=== PATIENT | female | born 1985 | race Caucasian/White ===

== ENCOUNTER 2016-05-16 20:02 | Emergency (ER) | payer MEDICARE, MEDICAID ==
--- NOTE | 2016-05-16 21:25 | ER Document Report ---
ED Medical Screen (RME) - General Stated Complaint: DIARRHEA Mode of Arrival: Ambulatory Information source: Patient Notes: Patient complains of diarrhea for the past 5 days. Patient complains of headache and nausea. No fever. Patient does report multiple sick contacts in the household recently. hx: Hysterectomy, bipolar, PTSD, ADHD, panic and anxiety disorder, depression, paranoia I have greeted and performed a rapid initial assessment of this patient. A comprehensive ED assessment and evaluation of the patient, analysis of test results and completion of the medical decision making process will be conducted by additional ED providers. TRAVEL OUTSIDE OF THE [place] IN LAST 30 DAYS: No - Related Data Allergies/Adverse Reactions: aspirin [Aspirin] Allergy (Severe, Verified 05/16/16 21:23) THROAT SWELLS, HIVES iodine [Iodine] Allergy (Severe, Verified 05/16/16 21:23) Generalized Itching seafood Allergy (Severe, Uncoded 02/16/16 09:41) throat itches Past Medical History - Past Medical History Cardiac Medical History: Reports: Hx Hypercholesterolemia Denies: Hx Hypertension Pulmonary Medical History: Reports: Hx Asthma, Hx COPD Neurological Medical History: Reports: Hx Migraine Renal/ Medical History: Reports: Hx Kidney Stones GI Medical History: Reports: Hx Gastroesophageal Reflux Disease, Hx Irritable Bowel Musculoskeltal Medical History: Reports Hx Musculoskeletal Deformity, Reports Hx Musculoskeletal Trauma Psychiatric Medical History: Reports: Hx Anxiety, Hx Attention Deficit Hyperactivity Disorder, Hx Bipolar Disorder, Hx Depression Past Surgical History: Reports: Hx Abdominal Surgery - UMBILICAL HERNIA, Hx Section, Hx Cholecystectomy, Hx Herniorrhaphy - Umbilical hernia repair , Hx Hysterectomy, Hx Orthopedic Surgery - left shoulder(slap shoulder), Hx Tonsillectomy, Hx Umbilical Hernia. Denies: Hx Mastectomy, Hx Open Heart Surgery - Immunizations Immunizations up to date: Yes Hx Diphtheria, Pertussis, Tetanus Vaccination: Yes - 09/2010 Physical Exam - Vital signs Vitals: Temp Pulse BP Pulse Ox 97.7 F 82 123/75 99 05/16/16 20:55 05/16/16 20:55 05/16/16 20:55 05/16/16 20:55 - Abdominal Tenderness: Tender - Generalized tenderness Course - Vital Signs Vital signs: Temp Pulse Resp BP Pulse Ox 97.7 F 82 123/75 99 05/16/16 20:55 05/16/16 20:55 05/16/16 20:55 05/16/16 20:55
[2016-05-16 22:00] LABS: ABSOLUTE BASOPHILS # (AUTO) 0.1 10^3/uL (0.0-0.2); ABSOLUTE EOSINOPHILS # (AUTO) 0.4 10^3/uL (0.0-0.6); ABSOLUTE LYMPHOCYTES (AUTO) 4.7 10^3/uL (0.5-4.7); ABSOLUTE MONOCYTES (AUTO) 0.8 10^3/uL (0.1-1.4); ABSOLUTE NEUT (AUTO) 4.2 10^3/uL (1.7-8.2); BASOPHILS % (AUTO) 0.5 % (0-2); EOSINOPHILS % (AUTO) 3.8 % (0-6); HEMATOCRIT 39.3 % (36.0-47.0); HEMOGLOBIN 13.5 g/dL (12.0-15.5); HGB HCT DIFFERENCE 1.2; LYMPHOCYTES % (AUTO) 46.3 % (13-45); MEAN CORPUSCULAR HEMOGLOBIN 28.3 pg (27.0-33.4); MEAN CORPUSCULAR HGB CONC 34.2 g/dL (32.0-36.0); MEAN CORPUSCULAR VOLUME 83 fl (80-97); RED BLOOD COUNT 4.76 10^6/uL (3.72-5.28); RED CELL DISTRIBUTION WIDTH 13.8 % (11.5-14.0); SEGMENTED NEUTROPHILS % (AUTO) 41.4 % (42-78); WHITE BLOOD COUNT 10.3 10^3/uL (4.0-10.5)
[2016-05-16 22:13] LABS: ALANINE AMINOTRANSFERASE 20 U/L (9-52); ALBUMIN 4.6 g/dL (3.5-5.0); ALKALINE PHOSPHATASE 71 U/L (38-126); ANION GAP 12 (5-19); ASPARTATE AMINO TRANSFERASE 26 U/L (14-36); BILIRUBIN,TOTAL 0.3 mg/dL (0.2-1.3); BLOOD UREA NITROGEN 20 mg/dL (7-20); CARBON DIOXIDE 27 mmol/L (22-30); CHLORIDE 104 mmol/L (98-107); CREATININE RESULT 0.76 mg/dL (0.52-1.25); GLUCOSE 91 mg/dL (75-110); POTASSIUM 4.2 mmol/L (3.6-5.0); TOTAL PROTEIN 7.4 g/dL (6.3-8.2)
[2016-05-16 22:41] LABS: AMORPHOUS SEDIMENT,URINE TRACE /HPF; APPEARANCE,URINE CLOUDY; BILIRUBIN,URINE NEGATIVE (NEGATIVE); GLUCOSE, URINE NEGATIVE (NEGATIVE); KETONES,URINE NEGATIVE (NEGATIVE); LEUKOCYTE ESTERASE,URINE NEGATIVE (NEGATIVE); NITRITE,URINE NEGATIVE (NEGATIVE); PROTEIN,URINE NEGATIVE (NEGATIVE); URINE SPECIFIC GRAVITY 1.019; UROBILINOGEN,URINE NEGATIVE mg/dL (<2.0)
[2016-05-17] MEDS ORDERED: DICYCLOMINE HCL 20 MG TABLET PO ONE (00:52)
--- NOTE | 2016-05-17 00:53 | ER Document Report ---
ED General - General Chief Complaint: Diarrhea Stated Complaint: DIARRHEA Mode of Arrival: Ambulatory Notes: Patient is a 30-year-old female who presents with complaint of diarrhea. She has history of IBS. She says it feels somewhat try BS except for the diarrhea just has continued throughout the day and usually her diarrhea will decrease with Pepto-Bismol. She has taken Pepto-Bismol was not help. No blood or stool. No fevers. Some nausea but no vomiting. Some intermittent crampy abdominal pain. No other complaints at this time. TRAVEL OUTSIDE OF THE [place] IN LAST 30 DAYS: No - Related Data Allergies/Adverse Reactions: aspirin [Aspirin] Allergy (Severe, Verified 05/16/16 21:23) THROAT SWELLS, HIVES iodine [Iodine] Allergy (Severe, Verified 05/16/16 21:23) Generalized Itching seafood Allergy (Severe, Uncoded 02/16/16 09:41) throat itches Past Medical History - General Information source: Patient - Social History Smoking Status: Current Every Day Smoker Chew tobacco use (# tins/day): No Frequency of alcohol use: None Drug Abuse: None Family History: CAD, Other - Past Medical History Cardiac Medical History: Reports: Hx Hypercholesterolemia Denies: Hx Hypertension Pulmonary Medical History: Reports: Hx Asthma, Hx COPD Neurological Medical History: Reports: Hx Migraine Renal/ Medical History: Reports: Hx Kidney Stones. Denies: Hx Peritoneal Dialysis GI Medical History: Reports: Hx Gastroesophageal Reflux Disease, Hx Irritable Bowel Musculoskeltal Medical History: Reports Hx Musculoskeletal Deformity, Reports Hx Musculoskeletal Trauma Psychiatric Medical History: Reports: Hx Anxiety, Hx Attention Deficit Hyperactivity Disorder, Hx Bipolar Disorder, Hx Depression Past Surgical History: Reports: Hx Abdominal Surgery - UMBILICAL HERNIA, Hx Section, Hx Cholecystectomy, Hx Herniorrhaphy - Umbilical hernia repair , Hx Hysterectomy, Hx Orthopedic Surgery - left shoulder(slap shoulder), Hx Tonsillectomy, Hx Umbilical Hernia. Denies: Hx Mastectomy, Hx Open Heart Surgery - Immunizations Immunizations up to date: Yes Hx Diphtheria, Pertussis, Tetanus Vaccination: Yes - 09/2010 Review of Systems - Review of Systems Notes: My Normal Review Basic REVIEW OF SYSTEMS: CONSTITUTIONAL : Denies fever, chills, or sweats. Denies recent illness. EENT: Denies eye, ear, throat, or mouth pain or symptoms. Denies nasal or sinus congestion. RESPIRATORY: Denies cough, cold, or chest congestion. Denies shortness of breath, difficulty breathing, or wheezing. GASTROINTESTINAL: Intermittent crampy abdominal pain. Some diarrhea. No vomiting. GENITOURINARY: Denies difficulty urinating, painful urination, burning, frequency, or blood in urine. FEMALE GENITOURINARY: Denies vaginal bleeding, abnormal or irregular periods. LMP: MUSCULOSKELETAL: Denies neck or back pain or joint pain or swelling. SKIN: Denies rash or skin lesions. NEUROLOGICAL: Denies altered mental status or loss of consciousness. Denies headache. Denies weakness or paralysis or loss of use of either side. Denies problems with gait or speech. Denies sensory or motor loss. ALL OTHER SYSTEMS REVIEWED AND NEGATIVE. Physical Exam - Vital signs Vitals: Temp Pulse BP Pulse Ox 97.7 F 82 123/75 99 05/16/16 20:55 05/16/16 20:55 05/16/16 20:55 05/16/16 20:55 - Notes Notes: General Appearance: Well nourished, alert, cooperative, no acute distress, no obvious discomfort. Well-appearing. Vitals: reviewed, See vital signs table. Head: no swelling or tenderness to the head Eyes: PERRL, EOMI, Conjuctiva clear Mouth: No decreasd moisture Neck: Supple, no neck tenderness, No thyromegaly Lungs: No wheezing, No rales, No rhonci, No accessory muscle use, good air exchange bilaterally. Heart: Normal rate, Regular rythm, No murmur, no rub Abdomen: Normal BS, soft, No rigidity, mild diffuse abdominal tenderness to palpation, No guarding, no rebound, no abdominal masses, no organomegaly Extremities: strength 5/5 in all extremities, good pulses in all extremities, no swelling or tenderness in the extremities, no edema. Skin: warm, dry, appropriate color, no rash Neuro: speech clear, oriented x 3, normal affect, responds appropriately to questions. Course - Vital Signs Vital signs: Temp Pulse Resp BP Pulse Ox 97.7 F 82 16 123/75 99 05/16/16 20:55 05/16/16 20:55 05/16/16 21:30 05/16/16 20:55 05/16/16 20:55 - Laboratory Result Diagrams: 05/16/16 21:50 05/16/16 21:50 Laboratory results interpreted by me: 05/16/16 21:50 Seg Neutrophils % 41.4 L Lymphocytes % 46.3 H - Transfer of Care Notes: 05/17/16 01:02 Patient is very well-appearing. Stool culture shows no white blood cells in the stool. Suspect that her diarrhea is either related to a virus or related to her IBS. I will place her in mental. I encourage her to drink lots liquids. I encourage her to follow closely with primary care doctor. I encourage her to return to ER immediately shows blood or stool, fevers, worsening pain, or vomiting. Patient agrees with plan and will be discharged home. Dictation of this chart was performed using voice recognition software; therefore, there may be some unintended grammatical errors. Discharge - Discharge Clinical Impression: Diarrhea Qualifiers: Diarrhea type: unspecified type Qualified Code(s): R19.7 - Diarrhea, unspecified Condition: Good Disposition: HOME, SELF-CARE Additional Instructions: Pleae take the medication as prescribed. Please drink lots of liquids. Please follow up closely with her primary care doctor for reevaluation. Please return to the ER if have bloody stools, fevers, intractable vomiting, or feel that your symptoms are getting worse. Prescriptions: Dicyclomine HCl [Bentyl 20 mg Tablet] 20 mg PO QID #40 tablet Forms: Return to Work Referrals: TIMOTHY JOHN FNP-C [Primary Care Provider] - Follow up tomorrow
[2016-05-17 01:06] VITALS: BP 110/78
== END 2016-05-17 01:12 | disposition home or self-care (01) ==
LOC: ER 20:02
DX: K58.0 Irritable bowel syndrome with diarrhea (principal); F17.200 Nicotine dependence, unspecified, uncomplicated; J44.9 Chronic obstructive pulmonary disease, unspecified; J45.909 Unspecified asthma, uncomplicated
CPT/HCPCS: 99284; 36415; 87045; 89055; 87205; 83690; 85025; 80053; 81001; 87493 ×2; A9270; J3490

== ENCOUNTER 2016-05-21 17:40 | Emergency (ER) | payer MEDICARE, MEDICAID ==
[2016-05-21 17:53] VITALS: BP 117/75
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
== END 2016-05-21 20:40 | disposition home or self-care (01) ==
LOC: ER 17:40
DX: S29.012A Strain of muscle and tendon of back wall of thorax, initial encounter (principal); V49.40XA Driver injured in collision with unspecified motor vehicles in traffic accident, initial encounter; M54.89 Other dorsalgia; M54.2 Cervicalgia; M25.511 Pain in right shoulder; M25.512 Pain in left shoulder; J44.9 Chronic obstructive pulmonary disease, unspecified; J45.909 Unspecified asthma, uncomplicated; Z88.6 Allergy status to analgesic agent; Z91.013 Allergy to seafood
CPT/HCPCS: 72070; 72125; 99284

== ENCOUNTER 2016-08-03 23:21 | Emergency (ER) | payer MEDICARE, MEDICAID ==
--- NOTE | 2016-08-04 00:42 | ER Document Report ---
ED General - General Chief Complaint: Urinary Problem Stated Complaint: URINARY ISSUE Time Seen by Provider: 08/04/16 00:34 Notes: Patient is 31-year-old female presents for complaints of pain in the left flank and back and into her lower abdomen. She also has blood in her urine. Started today. She's never had this before. She did have a kidney stone she is several years ago. She's had a hysterectomy and therefore does not have menstrual periods. No fevers. No vomiting. No diarrhea. No other complaints at this time. TRAVEL OUTSIDE OF THE [place] IN LAST 30 DAYS: No - Related Data Allergies/Adverse Reactions: aspirin [Aspirin] Allergy (Severe, Verified 05/21/16 18:19) THROAT SWELLS, HIVES iodine [Iodine] Allergy (Severe, Verified 05/21/16 18:19) Generalized Itching seafood Allergy (Severe, Uncoded 05/21/16 18:19) throat itches Past Medical History - Social History Smoking Status: Unknown if Ever Smoked Frequency of alcohol use: None Drug Abuse: None Family History: CAD, Other - Past Medical History Cardiac Medical History: Reports: Hx Hypercholesterolemia Denies: Hx Hypertension Pulmonary Medical History: Reports: Hx Asthma, Hx COPD Neurological Medical History: Reports: Hx Migraine Renal/ Medical History: Reports: Hx Kidney Stones. Denies: Hx Peritoneal Dialysis GI Medical History: Reports: Hx Gastroesophageal Reflux Disease, Hx Irritable Bowel Musculoskeltal Medical History: Reports Hx Musculoskeletal Deformity, Reports Hx Musculoskeletal Trauma Psychiatric Medical History: Reports: Hx Anxiety, Hx Attention Deficit Hyperactivity Disorder, Hx Bipolar Disorder, Hx Depression Past Surgical History: Reports: Hx Abdominal Surgery - UMBILICAL HERNIA, Hx Section, Hx Cholecystectomy, Hx Herniorrhaphy - Umbilical hernia repair , Hx Hysterectomy, Hx Orthopedic Surgery - left shoulder(slap shoulder), Hx Tonsillectomy, Hx Umbilical Hernia. Denies: Hx Mastectomy, Hx Open Heart Surgery - Immunizations Immunizations up to date: Yes Hx Diphtheria, Pertussis, Tetanus Vaccination: Yes - 09/2010 Review of Systems - Review of Systems Notes: My Normal Review Basic REVIEW OF SYSTEMS: CONSTITUTIONAL : Denies fever, chills, or sweats. Denies recent illness. GASTROINTESTINAL: No abdominal pain and left flank pain. GENITOURINARY: Hematuria FEMALE GENITOURINARY: Previous hysterectomy MUSCULOSKELETAL: Left low back pain SKIN: Denies rash or skin lesions. HEMATOLOGIC : Denies easy bruising or bleeding. NEUROLOGICAL: Denies altered mental status or loss of consciousness. Denies headache. Denies weakness or paralysis or loss of use of either side. Denies problems with gait or speech. Denies sensory or motor loss. ALL OTHER SYSTEMS REVIEWED AND NEGATIVE. Physical Exam - Vital signs Vitals: Temp Pulse BP Pulse Ox 97.5 F 84 107/62 99 08/03/16 23:36 08/03/16 23:36 08/03/16 23:36 08/03/16 23:36 - Notes Notes: General Appearance: Well nourished, alert, cooperative, no acute distress, no obvious discomfort. Well-appearing. Vitals: reviewed, See vital signs table. Eyes: PERRL, EOMI, Conjuctiva clear Lungs: No wheezing, No rales, No rhonci, No accessory muscle use, good air exchange bilaterally. Heart: Normal rate, Regular rythm, No murmur, no rub Abdomen: Normal BS, soft, No rigidity, mild suprapubic abdominal tenderness to palpation., Mild left flank pain to palpation. No guarding, no rebound, no abdominal masses, no organomegaly Extremities: strength 5/5 in all extremities, good pulses in all extremities, no swelling or tenderness in the extremities, no edema. Skin: warm, dry, appropriate color, no rash Neuro: speech clear, oriented x 3, normal affect, responds appropriately to questions. Course - Vital Signs Vital signs: Temp Pulse Resp BP Pulse Ox 97.5 F 84 107/62 99 08/03/16 23:36 08/03/16 23:36 08/03/16 23:36 08/03/16 23:36 - Laboratory Laboratory results interpreted by me: 08/04/16 00:35 Urine Protein >=500 H Urine Glucose (UA) 50 H Urine Blood LARGE H Discharge - Discharge Clinical Impression: Hematuria, Flank pain Condition: Good Disposition: HOME, SELF-CARE Instructions: Oral Narcotic Medication ([facility]) Additional Instructions: Please take the antibiotics as prescribed. Do not drive when taking pain medication. Please follow-up with your doctor or the ER in 2-3 days so that urine to be rechecked to make sure that is clearing and that the blood is no longer present. If you continue to have blood in your urine you may eventually need to be referred to a urologist for further workup. Return to the ER immeidately if you have fevers, worsening pain, or feel unwell. Please be aware that antibiotics sometimes can cause weakening of your tendons while you' re on them. Therefore should avoid exertional activities or heavy weightlifting when taking the antibiotics. Prescriptions: Tramadol HCl [Ultram 50 mg Tablet] 50 mg PO Q6HP PRN #10 tablet PRN Reason: Ciprofloxacin HCl [Cipro 500 mg Tablet] 500 mg PO BID #20 tablet
[2016-08-04 01:07] LABS: APPEARANCE,URINE TURBID; BILIRUBIN,URINE NEGATIVE (NEGATIVE); GLUCOSE, URINE 50 mg/dL (NEGATIVE); KETONES,URINE NEGATIVE (NEGATIVE); LEUKOCYTE ESTERASE,URINE NEGATIVE (NEGATIVE); NITRITE,URINE NEGATIVE (NEGATIVE); PROTEIN,URINE >=500 mg/dL (NEGATIVE); URINE SPECIFIC GRAVITY 1.031; UROBILINOGEN,URINE NEGATIVE mg/dL (<2.0)
[2016-08-04] MEDS ORDERED: TRAMADOL HCL 50 MG TABLET PO ONE (01:52)
[2016-08-04] MEDS ORDERED: CIPROFLOXACIN HCL 500 MG TABLET PO ONE (01:52)
[2016-08-04 02:01] VITALS: BP 117/77
== END 2016-08-04 01:59 | disposition home or self-care (01) ==
LOC: ER 23:21
DX: R31.9 Hematuria, unspecified (principal); R10.9 Unspecified abdominal pain; M54.9 Dorsalgia, unspecified; Z88.6 Allergy status to analgesic agent; E78.00 Pure hypercholesterolemia, unspecified; Z90.710 Acquired absence of both cervix and uterus; Z87.442 Personal history of urinary calculi; Z90.49 Acquired absence of other specified parts of digestive tract
CPT/HCPCS: 99284; 81001; 76380; A9270 ×2

== ENCOUNTER → 2016-08-03 | Outpatient (CLI) | payer MEDICARE, MEDICAID ==
[2016-08-03 09:22] LABS: ABSOLUTE EOSINOPHILS # (AUTO) 0.2 10^3/uL (0.0-0.6); ABSOLUTE LYMPHOCYTES (AUTO) 3.3 10^3/uL (0.5-4.7); ABSOLUTE MONOCYTES (AUTO) 0.6 10^3/uL (0.1-1.4); ABSOLUTE NEUT (AUTO) 3.7 10^3/uL (1.7-8.2); BASOPHILS % (AUTO) 0.3 % (0-2); EOSINOPHILS % (AUTO) 2.1 % (0-6); HEMATOCRIT 39.6 % (36.0-47.0); HEMOGLOBIN 13.2 g/dL (12.0-15.5); LYMPHOCYTES % (AUTO) 42.8 % (13-45); MEAN CORPUSCULAR HEMOGLOBIN 26.9 pg (27.0-33.4); MEAN CORPUSCULAR HGB CONC 33.4 g/dL (32.0-36.0); MEAN CORPUSCULAR VOLUME 81 fl (80-97); RED BLOOD COUNT 4.91 10^6/uL (3.72-5.28); RED CELL DISTRIBUTION WIDTH 13.8 % (11.5-14.0); SEGMENTED NEUTROPHILS % (AUTO) 46.8 % (42-78); WHITE BLOOD COUNT 7.8 10^3/uL (4.0-10.5)
[2016-08-03 09:43] LABS: ALANINE AMINOTRANSFERASE 33 U/L (9-52); ALBUMIN 4.1 g/dL (3.5-5.0); ALKALINE PHOSPHATASE 65 U/L (38-126); ANION GAP 11 (5-19); ASPARTATE AMINO TRANSFERASE 20 U/L (14-36); BILIRUBIN,DIRECT 0.4 mg/dL (0.0-0.4); BILIRUBIN,TOTAL 0.6 mg/dL (0.2-1.3); BLOOD UREA NITROGEN 13 mg/dL (7-20); CALCIUM 9.6 mg/dL (8.4-10.2); CARBON DIOXIDE 26 mmol/L (22-30); CHLORIDE 104 mmol/L (98-107); CHOLESTEROL 171.03 mg/dL (0-200); CREATININE RESULT 0.74 mg/dL (0.52-1.25); Direct HDL 36 mg/dL (>40); GLUCOSE 97 mg/dL (75-110); POTASSIUM 4.2 mmol/L (3.6-5.0); SODIUM 141.3 mmol/L (137-145); TOTAL PROTEIN 6.6 g/dL (6.3-8.2); TRIGLYCERIDES 185 mg/dL (<150)
[2016-08-03 09:53] LABS: DIRECT LDL 94 mg/dL (<100); VALPROIC ACID 15.7 ug/mL (50.0-120.0)
== END ==
LOC: OD 08:32
PROVIDERS: ATTEND Physician Assistant
DX: F43.12 Post-traumatic stress disorder, chronic (principal); Z79.899 Other long term (current) drug therapy
CPT/HCPCS: 36415; 80053; 80061; 80164; 85025

== ENCOUNTER → 2016-08-24 | Outpatient (CLI) | payer MEDICARE, MEDICAID ==
--- NOTE | 2016-08-24 17:04 | RADIOLOGY REPORT (SQ) ---
EXAM DESCRIPTION: KUB COMPLETED DATE/TIME: 08/24/2016 4:13 pm REASON FOR STUDY: CALCULUS OF KIDNEY N20.0 CALCULUS OF KIDNEY COMPARISON: None. NUMBER OF VIEWS: One view. TECHNIQUE: Supine radiographic image of the abdomen acquired. LIMITATIONS: None. FINDINGS: BOWEL GAS PATTERN: Normal bowel gas pattern. No dilated loops. CALCIFICATIONS: A large, irregular elongated calcification lies just below the right transverse proce ss of L2. This measures 12 mm in largest diameter. SOFT TISSUES: No gross mass or suggestion of organomegaly. HARDWARE: None in the abdomen. BONES: No acute fracture. No worrisome bone lesions. OTHER: No other significant finding. IMPRESSION: There is a large calcification on the right. This is likely to be in the renal pelvis o r proximal ureter. TECHNICAL DOCUMENTATION: JOB ID: [id number]- All Rights Reserved
== END ==
LOC: OD 15:49
PROVIDERS: ATTEND Urology
DX: N20.0 Calculus of kidney (principal)
CPT/HCPCS: 74000

== ENCOUNTER 2016-08-30 04:35 | Emergency (ER) | payer MEDICARE, MEDICAID ==
[2016-08-30 05:28] LABS: ABSOLUTE MONOCYTES (AUTO) 0.6 10^3/uL (0.1-1.4); ABSOLUTE NEUT (AUTO) 8.3 10^3/uL (1.7-8.2); BASOPHILS % (AUTO) 0.4 % (0-2); HEMOGLOBIN 13.3 g/dL (12.0-15.5); HGB HCT DIFFERENCE -1.1; LYMPHOCYTES % (AUTO) 18.7 % (13-45); MEAN CORPUSCULAR HGB CONC 32.5 g/dL (32.0-36.0); MEAN CORPUSCULAR VOLUME 80 fl (80-97); MONOCYTES % (AUTO) 5.2 % (3-13); RED BLOOD COUNT 5.12 10^6/uL (3.72-5.28); RED CELL DISTRIBUTION WIDTH 13.8 % (11.5-14.0); SEGMENTED NEUTROPHILS % (AUTO) 75.7 % (42-78); WHITE BLOOD COUNT 10.9 10^3/uL (4.0-10.5)
[2016-08-30 05:43] LABS: ALANINE AMINOTRANSFERASE 23 U/L (9-52); ALBUMIN 4.8 g/dL (3.5-5.0); ALKALINE PHOSPHATASE 66 U/L (38-126); ANION GAP 16 (5-19); ASPARTATE AMINO TRANSFERASE 14 U/L (14-36); BILIRUBIN,DIRECT 0.4 mg/dL (0.0-0.4); BILIRUBIN,TOTAL 0.5 mg/dL (0.2-1.3); BLOOD UREA NITROGEN 13 mg/dL (7-20); CALCIUM 10.1 mg/dL (8.4-10.2); CARBON DIOXIDE 23 mmol/L (22-30); CHLORIDE 100 mmol/L (98-107); CREATININE RESULT 0.76 mg/dL (0.52-1.25); GLUCOSE 114 mg/dL (75-110); POTASSIUM 4.5 mmol/L (3.6-5.0); SODIUM 138.9 mmol/L (137-145); TOTAL PROTEIN 7.8 g/dL (6.3-8.2)
[2016-08-30] MEDS ORDERED: NORMAL SALINE 1000 ML 1,000 ML IV ONE ×2 (06:05→07:33)
[2016-08-30] MEDS ORDERED: ONDANSETRON HCL INJ/PF 4 MG/2 ML SDV IV ONE (06:05)
--- NOTE | 2016-08-30 06:11 | ER Document Report ---
ED Medical Screen (RME) - General Chief Complaint: Possible Kidney Stone Stated Complaint: FLANK PAIN Time Seen by Provider: 08/30/16 06:03 Mode of Arrival: Medic Information source: Patient Notes: 31 yo female with hx kidney stones dx by [facility] is c/o left lower back pain (not over kidney) , vomiting since 5 pm with diarrhea, generalized abd. pain. NO blood in stool. Has been taking Percocet 10mg every 4 hours for 10 days to help pass the stones. HX. eyal and hysterectomy. No fever or chills. Looks dry. TRAVEL OUTSIDE OF THE [place] IN LAST 30 DAYS: No - Related Data Allergies/Adverse Reactions: aspirin [Aspirin] Allergy (Severe, Verified 08/30/16 04:45) THROAT SWELLS, HIVES iodine [Iodine] Allergy (Severe, Verified 08/30/16 04:45) Generalized Itching seafood Allergy (Severe, Uncoded 08/30/16 04:45) throat itches Past Medical History - Past Medical History Cardiac Medical History: Reports: Hx Hypercholesterolemia Denies: Hx Hypertension Pulmonary Medical History: Reports: Hx Asthma, Hx COPD Neurological Medical History: Reports: Hx Migraine Renal/ Medical History: Reports: Hx Kidney Stones. Denies: Hx Peritoneal Dialysis GI Medical History: Reports: Hx Gastroesophageal Reflux Disease, Hx Irritable Bowel Musculoskeltal Medical History: Reports Hx Musculoskeletal Deformity, Reports Hx Musculoskeletal Trauma Psychiatric Medical History: Reports: Hx Anxiety, Hx Attention Deficit Hyperactivity Disorder, Hx Bipolar Disorder, Hx Depression Past Surgical History: Reports: Hx Abdominal Surgery - UMBILICAL HERNIA, Hx Section, Hx Cholecystectomy, Hx Herniorrhaphy - Umbilical hernia repair , Hx Hysterectomy, Hx Orthopedic Surgery - left shoulder(slap shoulder), Hx Tonsillectomy, Hx Umbilical Hernia. Denies: Hx Mastectomy, Hx Open Heart Surgery - Immunizations Immunizations up to date: Yes Hx Diphtheria, Pertussis, Tetanus Vaccination: Yes - 09/2010 Physical Exam - Vital signs Vitals: Temp Pulse Resp BP Pulse Ox 98.2 F 63 18 105/72 98 08/30/16 04:42 08/30/16 04:42 08/30/16 04:42 08/30/16 04:42 08/30/16 04:42 Course - Vital Signs Vital signs: Temp Pulse Resp BP Pulse Ox 98.2 F 63 18 105/72 98 08/30/16 04:42 08/30/16 04:42 08/30/16 04:42 08/30/16 04:42 08/30/16 04:42 - Laboratory Result Diagrams: 08/30/16 04:55 08/30/16 04:55 Laboratory results interpreted by me: 08/30/16 08/30/16 04:55 04:55 WBC 10.9 H MCH 26.0 L Absolute Neutrophils 8.3 H Glucose 114 H
[2016-08-30] MEDS ORDERED: DIPHENHYDRAMINE HCL 50 MG/ML VIAL IV ONE (06:12)
[2016-08-30] MEDS ORDERED: METOCLOPRAMIDE HCL INJ/PF 10 MG/2 ML SDV IV ONE (06:12)
[2016-08-30 06:17] LABS: ADD ON TESTING BLD IN LAB ACKNOWLEDGE
[2016-08-30 06:27] LABS: ALCOHOL < 10 mg/dL (NONE DETECTED)
[2016-08-30 06:29] LABS: APPEARANCE,URINE TURBID; BILIRUBIN,URINE NEGATIVE (NEGATIVE); GLUCOSE, URINE NEGATIVE (NEGATIVE); KETONES,URINE 20 mg/dL (NEGATIVE); LEUKOCYTE ESTERASE,URINE NEGATIVE (NEGATIVE); NITRITE,URINE NEGATIVE (NEGATIVE); PROTEIN,URINE 30 mg/dL (NEGATIVE); URINE SPECIFIC GRAVITY 1.025; UROBILINOGEN,URINE NEGATIVE mg/dL (<2.0)
[2016-08-30 07:01] LABS: URINE BARBITURATES SCREEN NEGATIVE; URINE METHADONE SCREEN NEGATIVE; URINE OPIATES LOW NEGATIVE; URINE PHENCYCLIDINE SCREEN NEGATIVE
[2016-08-30] MEDS ORDERED: KETOROLAC TROMETHAMINE INJ/PF 30 MG/1 ML SDV IV ONE (07:12)
[2016-08-30] MEDS ORDERED: PROMETHAZINE HCL 25 MG TABLET PO ONE (07:12)
--- NOTE | 2016-08-30 08:08 | ER Document Report ---
ED General - General Chief Complaint: Possible Kidney Stone Stated Complaint: FLANK PAIN Time Seen by Provider: 08/30/16 06:03 Mode of Arrival: Medic TRAVEL OUTSIDE OF THE [place] IN LAST 30 DAYS: No - HPI Patient complains to provider of: Nausea vomiting lower back pain diarrhea Notes: Patient is coming in today for nausea vomiting low back pain ongoing for the last 24 hours. Patient states history of kidney stones currently on Percocet for pain control. Patient states she is running out of Percocet. Patient states she has not tried any medication for her nausea vomiting. Patient does have significant psych history is on multiple psychiatric medications. Otherwise patient denies any other problems or complaints denies any recent antibiotics or travel. Patient is resting comfortably upon my evaluation after receiving Benadryl and Reglan. - Related Data Allergies/Adverse Reactions: aspirin [Aspirin] Allergy (Severe, Verified 08/30/16 04:45) THROAT SWELLS, HIVES iodine [Iodine] Allergy (Severe, Verified 08/30/16 04:45) Generalized Itching seafood Allergy (Severe, Uncoded 08/30/16 04:45) throat itches Past Medical History - General Information source: Patient - Social History Smoking Status: Unknown if Ever Smoked Family History: Reviewed & Not Pertinent, CAD, Other - Past Medical History Cardiac Medical History: Reports: Hx Hypercholesterolemia Denies: Hx Hypertension Pulmonary Medical History: Reports: Hx Asthma, Hx COPD Neurological Medical History: Reports: Hx Migraine Renal/ Medical History: Reports: Hx Kidney Stones. Denies: Hx Peritoneal Dialysis GI Medical History: Reports: Hx Gastroesophageal Reflux Disease, Hx Irritable Bowel Musculoskeltal Medical History: Reports Hx Musculoskeletal Deformity, Reports Hx Musculoskeletal Trauma Psychiatric Medical History: Reports: Hx Anxiety, Hx Attention Deficit Hyperactivity Disorder, Hx Bipolar Disorder, Hx Depression Past Surgical History: Reports: Hx Abdominal Surgery - UMBILICAL HERNIA, Hx Section, Hx Cholecystectomy, Hx Herniorrhaphy - Umbilical hernia repair , Hx Hysterectomy, Hx Orthopedic Surgery - left shoulder(slap shoulder), Hx Tonsillectomy, Hx Umbilical Hernia. Denies: Hx Mastectomy, Hx Open Heart Surgery - Immunizations Immunizations up to date: Yes Hx Diphtheria, Pertussis, Tetanus Vaccination: Yes - 09/2010 Review of Systems - Review of Systems Constitutional: No symptoms reported EENT: No symptoms reported Cardiovascular: No symptoms reported Respiratory: No symptoms reported Gastrointestinal: Diarrhea, Nausea, Vomiting Genitourinary: No symptoms reported Female Genitourinary: No symptoms reported Musculoskeletal: No symptoms reported Skin: No symptoms reported Hematologic/Lymphatic: No symptoms reported Neurological/Psychological: No symptoms reported -: Yes All other systems reviewed and negative Physical Exam - Vital signs Vitals: Temp Pulse Resp BP Pulse Ox 98.2 F 63 18 105/72 98 08/30/16 04:42 08/30/16 04:42 08/30/16 04:42 08/30/16 04:42 08/30/16 04:42 Interpretation: Normal - General General appearance: Appears well, Alert - HEENT Head: Normocephalic, Atraumatic Eyes: Normal Pupils: PERRL - Respiratory Respiratory status: No respiratory distress Chest status: Nontender Breath sounds: Normal Chest palpation: Normal - Cardiovascular Rhythm: Regular Heart sounds: Normal auscultation Murmur: No - Abdominal Inspection: Normal Distension: No distension Bowel sounds: Normal Tenderness: Nontender Organomegaly: No organomegaly - Back Back: Normal, Nontender - Extremities General upper extremity: Normal inspection, Nontender, Normal color, Normal ROM , Normal temperature General lower extremity: Normal inspection, Nontender, Normal color, Normal ROM , Normal temperature, Normal weight bearing. No: Vanda's sign - Neurological Neuro grossly intact: Yes Cognition: Normal Orientation: AAOx4 [place] Coma Scale Eye Opening: Spontaneous [place] Coma Scale Verbal: Oriented [place] Coma Scale Motor: Obeys Commands [place] Coma Scale Total: 15 Speech: Normal Motor strength normal: LUE, RUE, LLE, RLE Sensory: Normal - Psychological Associated symptoms: Normal affect, Normal mood - Skin Skin Temperature: Warm Skin Moisture: Dry Skin Color: Normal Course - Re-evaluation Re-evalutation: 08/30/16 07:48 The patient presents with abdominal pain without signs of peritonitis or other life-threatening or serious etiology. The patient appears stable for discharge and has been instructed to return immediately if the symptoms worsen in any way , or in 8-12hr if not improved for re-evaluation. The patient has been instructed to return if the symptoms worsen or change in any way.. Patient states he has taken Toradol before. Patient was given a dose of Toradol and a dose of Phenergan and she states still mildly nauseous. There is no current vomitus. Patient was given another bag of IV fluids. Patient will be discharged home to follow-up with primary care physician - Vital Signs Vital signs: Temp Pulse Resp BP Pulse Ox 98.7 F 53 L 16 121/74 98 08/30/16 09:41 08/30/16 09:41 08/30/16 09:41 08/30/16 09:41 08/30/16 09:41 - Laboratory Result Diagrams: 08/30/16 04:55 08/30/16 04:55 Laboratory results interpreted by me: 08/30/16 08/30/16 08/30/16 04:55 04:55 05:05 WBC 10.9 H MCH 26.0 L Absolute Neutrophils 8.3 H Glucose 114 H Urine Protein 30 H Urine Ketones 20 H Urine Blood MODERATE H Discharge - Discharge Clinical Impression: Nausea vomiting and diarrhea Condition: Good Disposition: HOME, SELF-CARE Instructions: Gastroenteritis (adult) ([facility]) Additional Instructions: Your laboratory studies show no critical pathology today. Take medications as prescribed. Follow-up with your primary care physician for further evaluation of your pain medication regimen. Prescriptions: Ondansetron [Zofran Odt 4 mg Tablet] 1 - 2 tab PO Q4H PRN #15 tab.rapdis PRN Reason: For Nausea/Vomiting Promethazine HCl [Phenergan 25 mg Tablet] 1 - 2 tab PO Q6H PRN #15 tablet PRN Reason: Forms: Return to Work
[2016-08-30] MEDS ORDERED: PROMETHAZINE HCL INJ 25 MG/1 ML VIAL IM ONE (08:49)
[2016-08-30] MEDS ORDERED: PROMETHAZINE HCL INJ 50 MG/1 ML VIAL IM ONE (09:15)
[2016-08-30 09:43] VITALS: BP 121/74
== END 2016-08-30 09:43 | disposition home or self-care (01) ==
LOC: ER 04:35
DX: R11.2 Nausea with vomiting, unspecified (principal); R19.7 Diarrhea, unspecified; M54.5 Low back pain; R10.9 Unspecified abdominal pain; Z79.899 Other long term (current) drug therapy; Z88.6 Allergy status to analgesic agent; Z91.013 Allergy to seafood; Z87.442 Personal history of urinary calculi; J44.9 Chronic obstructive pulmonary disease, unspecified; Z87.19 Personal history of other diseases of the digestive system; Z90.49 Acquired absence of other specified parts of digestive tract; Z90.710 Acquired absence of both cervix and uterus
CPT/HCPCS: 99284; 96372; 96374; 96375; 36415; 87086; 80307 ×2; 83690; 85025; 81025; 80053; 81001; J1200; J1885; J2765; J2550; A9270; J7030

== ENCOUNTER 2016-09-08 22:57 | Emergency (ER) | payer MEDICARE, MEDICAID ==
[2016-09-09 00:20] LABS: HEMATOCRIT 42.1 % (36.0-47.0); HGB HCT DIFFERENCE -0.1; MEAN CORPUSCULAR HEMOGLOBIN 25.6 pg (27.0-33.4); MEAN CORPUSCULAR HGB CONC 33.2 g/dL (32.0-36.0); MEAN CORPUSCULAR VOLUME 77 fl (80-97); RED BLOOD COUNT 5.46 10^6/uL (3.72-5.28); RED CELL DISTRIBUTION WIDTH 14.2 % (11.5-14.0); WHITE BLOOD COUNT 25.9 10^3/uL (4.0-10.5)
[2016-09-09 00:27] LABS: APPEARANCE,URINE CLOUDY; BILIRUBIN,URINE NEGATIVE (NEGATIVE); GLUCOSE, URINE NEGATIVE (NEGATIVE); KETONES,URINE TRACE mg/dL (NEGATIVE); LEUKOCYTE ESTERASE,URINE SMALL (NEGATIVE); NITRITE,URINE NEGATIVE (NEGATIVE); PROTEIN,URINE >=500 mg/dL (NEGATIVE); URINE SPECIFIC GRAVITY 1.028; UROBILINOGEN,URINE NEGATIVE mg/dL (<2.0)
[2016-09-09 00:31] LABS: ALANINE AMINOTRANSFERASE 26 U/L (9-52); ALBUMIN 3.9 g/dL (3.5-5.0); ALKALINE PHOSPHATASE 60 U/L (38-126); ANION GAP 16 (5-19); ASPARTATE AMINO TRANSFERASE 14 U/L (14-36); BILIRUBIN,DIRECT 0.4 mg/dL (0.0-0.4); BILIRUBIN,TOTAL 0.5 mg/dL (0.2-1.3); BLOOD UREA NITROGEN 15 mg/dL (7-20); CALCIUM 9.1 mg/dL (8.4-10.2); CARBON DIOXIDE 25 mmol/L (22-30); CHLORIDE 92 mmol/L (98-107); CREATININE RESULT 1.02 mg/dL (0.52-1.25); GLUCOSE 120 mg/dL (75-110); LIPASE 22.8 U/L (23-300); SODIUM 132.8 mmol/L (137-145); TOTAL PROTEIN 6.5 g/dL (6.3-8.2)
[2016-09-09 00:34] LABS: POTASSIUM 2.9 mmol/L (3.6-5.0)
[2016-09-09 00:39] LABS: BAND NEUTROPHILS % (MANUAL) 4 % (3-5); BASOPHILS % (MANUAL) 0 % (0-2); EOSINOPHILS % (MANUAL) 0 % (0-6); LYMPHOCYTES % (MANUAL) 4 % (13-45); TOTAL CELLS COUNTED 100
[2016-09-09 00:41] LABS: MICROCYTOSIS SLIGHT; TOXIC GRANULATION 1+; TOXIC VACUOLATION PRESENT
[2016-09-09] MEDS ORDERED: ONDANSETRON HCL INJ/PF 4 MG/2 ML SDV IV ONE (01:09)
[2016-09-09] MEDS ORDERED: MORPHINE SULFATE 10 MG/ML INJ IV ONE (01:09)
[2016-09-09] MEDS ORDERED: NORMAL SALINE 1000 ML 1,000 ML IV ONE ×4 (01:09→08:47)
--- NOTE | 2016-09-09 01:14 | ER Document Report ---
ED GI/ - General TRAVEL OUTSIDE OF THE [place] IN LAST 30 DAYS: No <MALU BLACK - Last Filed: 09/09/16 06:41> <DIONY ROOT - Last Filed: 09/09/16 12:58> - General Chief Complaint: Back Pain Stated Complaint: LOWER BACK/FLANK PAIN Time Seen by Provider: 09/09/16 01:03 Notes: Patient is a 31-year-old female that comes emergency department for chief complaint of right flank pain, vomiting, and fever. Patient states her temperature was 102.5 this evening. She states she has not eaten today. Patient states that she was diagnosed almost a month ago with a 12 mm right- sided kidney stone, she had lithotripsy 1 week ago in [place] by Dr. bradford, urology, patient states that she has not been seen yet on follow-up. Patient's past medical history includes hysterectomy, cystectomy, PTSD, bipolar, hyperlipidemia. (MALU BLACK) - Related Data Allergies/Adverse Reactions: aspirin [Aspirin] Allergy (Severe, Verified 09/09/16 04:14) THROAT SWELLS, HIVES iodine [Iodine] Allergy (Severe, Verified 09/09/16 04:14) Generalized Itching seafood Allergy (Severe, Uncoded 09/09/16 04:14) throat itches Home Medications: Current Home Medications Clonazepam [Klonopin] 1 mg PO TID 09/09/16 [History] Dexlansoprazole [Dexilant 60 mg Capsule] 60 mg PO DAILY 09/09/16 [History] Divalproex Sodium [Divalproex Sodium ER] 250 mg PO TID 09/09/16 [History] Estrogens,Conjugated [Premarin 1.25 mg Tablet] 1.25 mg PO QHS 09/09/16 [History] Gemfibrozil [Lopid] 600 mg PO BID 09/09/16 [History] Hydroxyzine Pamoate 50 mg PO TID PRN 09/09/16 [History] Metformin HCl 500 mg PO BID 09/09/16 [History] Montelukast Sodium 10 mg PO QHS 09/09/16 [History] Oxycodone HCl/Acetaminophen [Oxycodone-Acetaminophen 5-325] 1 each PO Q4 PRN [History] Prazosin HCl 2 mg PO QHS 09/09/16 [History] Promethazine HCl 25 mg PO Q6 PRN 09/09/16 [History] Sulfamethoxazole/Trimethoprim [Sulfamethoxazole-Tmp Ss Tablet] 1 each PO BID [History] Tamsulosin HCl [Flomax] 0.4 mg PO QHS 09/09/16 [History] Trazodone HCl [Desyrel] 200 mg PO QHS 09/09/16 [History] Ziprasidone HCl 40 mg PO BID 09/09/16 [History] Ziprasidone HCl 80 mg PO DAILY 09/09/16 [History] Past Medical History - General Information source: Patient - Social History Smoking Status: Never Smoker Drug Abuse: None Lives with: Family Family History: Reviewed & Not Pertinent, CAD, Other Patient has suicidal ideation: No Patient has homicidal ideation: No - Past Medical History Cardiac Medical History: Reports: Hx Hypercholesterolemia Denies: Hx Hypertension Pulmonary Medical History: Reports: Hx Asthma, Hx COPD Neurological Medical History: Reports: Hx Migraine Renal/ Medical History: Reports: Hx Kidney Stones. Denies: Hx Peritoneal Dialysis GI Medical History: Reports: Hx Gastroesophageal Reflux Disease, Hx Irritable Bowel Musculoskeltal Medical History: Reports Hx Musculoskeletal Deformity, Reports Hx Musculoskeletal Trauma Psychiatric Medical History: Reports: Hx Anxiety, Hx Attention Deficit Hyperactivity Disorder, Hx Bipolar Disorder, Hx Depression Past Surgical History: Reports: Hx Abdominal Surgery - UMBILICAL HERNIA, Hx Section, Hx Cholecystectomy, Hx Herniorrhaphy - Umbilical hernia repair , Hx Hysterectomy, Hx Orthopedic Surgery - left shoulder(slap shoulder), Hx Tonsillectomy, Hx Umbilical Hernia. Denies: Hx Mastectomy, Hx Open Heart Surgery - Immunizations Immunizations up to date: Yes Hx Diphtheria, Pertussis, Tetanus Vaccination: Yes - 09/2010 <MALU BLACK - Last Filed: 09/09/16 06:41> Review of Systems - Review of Systems Constitutional: No symptoms reported EENT: No symptoms reported Cardiovascular: No symptoms reported Respiratory: No symptoms reported Gastrointestinal: See HPI Genitourinary: See HPI Female Genitourinary: No symptoms reported Musculoskeletal: No symptoms reported Skin: No symptoms reported Hematologic/Lymphatic: No symptoms reported Neurological/Psychological: No symptoms reported <MALU BLACK - Last Filed: 09/09/16 06:41> Physical Exam - Vital signs Interpretation: Normal - General General appearance: Anxious In distress: Moderate - Patient appears to be in pain, she is pale, she is generally unwell appearing - HEENT Head: Normocephalic, Atraumatic Eyes: Normal Pupils: PERRL - Respiratory Respiratory status: No respiratory distress Chest status: Nontender Breath sounds: Normal Chest palpation: Normal - Cardiovascular Rhythm: Regular, Tachycardia Heart sounds: Normal auscultation, S1 appreciated, S2 appreciated Murmur: No - Abdominal Inspection: Normal Distension: No distension Bowel sounds: Normal Tenderness: Tender - Generalized abdominal tenderness Organomegaly: No organomegaly - Back Back: CVA tenderness - Right-sided CVA tenderness - Extremities General upper extremity: Normal inspection, Nontender, Normal color, Normal ROM , Normal temperature General lower extremity: Normal inspection, Nontender, Normal color, Normal ROM , Normal temperature, Normal weight bearing. No: Vanda's sign - Neurological Neuro grossly intact: Yes Cognition: Normal Orientation: AAOx4 [place] Coma Scale Eye Opening: Spontaneous [place] Coma Scale Verbal: Oriented [place] Coma Scale Motor: Obeys Commands [place] Coma Scale Total: 15 Speech: Normal Motor strength normal: LUE, RUE, LLE, RLE Sensory: Normal - Skin Skin Temperature: Warm Skin Moisture: Dry Skin Color: Pale <MALU BLACK - Last Filed: 09/09/16 06:41> Course - Laboratory Result Diagrams: 09/08/16 23:55 09/08/16 23:55 <MALU BLACK - Last Filed: 09/09/16 06:41> - Laboratory Result Diagrams: 09/08/16 23:55 09/09/16 09:29 <DIONY ROOT - Last Filed: 09/09/16 12:58> - Re-evaluation Re-evalutation: Initial urine sample obtained, because of patient's illness and HPI requested catheterized urine to be obtained, patient agreeable to this, will place culture. Catheterized urine also shows urinary tract infection. Laboratory results shows leukocytosis at 25.6, elevated neutrophils, no bandemia. Patient is tachycardic but not hypotensive, does not have a fever at this time. Chemistry generally unremarkable except for hypokalemia at 2.9, will replace, will check magnesium, giving fluids. Giving patient Rocephin. Will keep N.p.o. KUB was performed, shows possible new small ureterolithiasis, this is difficult to tell. Because of patient's workup CAT scan will be performed to evaluate for hydronephrosis. Patient was discussed with Dr. Wells. Magnesium is low, will replace this as well. CAT scan showing that the 1.2 cm stone actually did not pass and it descended and appears to have obstructed with hydroureter, hydronephrosis. We do not have any Urology coverage. Patient is starting to develop a fever and increased tachycardia again, will give Toradol. 09/09/16 04:55 Called and spoke with Dr. Fraser, urology business information consultant at [facility] business information consultant for patient's urologist, patient will be accepted in transfer. Patient states understanding and agreement. 09/09/16 Initially father frustrated with transfer (wants her to stay her), but there is no urology business information consultant, he personally called Dr. Fraser and afterwards to me he was in agreement with transfer. Fever reduced, tachycardia improved back down to 105. (MALU BLACK) 09/09/16 11:46 few ice chips given, temp to 101, tylenol ordered. Have called [facility] 3 times since 10:30 tying to find out bed status nad to talk with dr. Fraser again. He has not returned call to their transfer center. The pt father in law has been commupicating with dr. bowser at [phone]. dr. fraser accepted the pt for [facility]. 09/09/16 12:[address] bradford who will take her to OR for the stent with the transfer center on the phone call also. 09/09/16 12:32 [facility] will be here to take the patient straight to the OR at [facility] for stent placement. Dr. bradford will be doing the surgery. Patient is tachycardic 125 systolic blood pressure 111. Cipro 400 mg IV is infusing along with normal saline. Her potassium went up to 3.3 on the recheck. Pt up to bathroom. prelim urine cx shows gm neg rods. 09/09/16 12:34 dr. rosado seen pt. will order dilaudid 0.5mg which helped previously (DIONY ROOT) - Vital Signs Vital signs: Temp Pulse Resp BP Pulse Ox 99.9 F 134 H 31 H 111/74 95 09/09/16 12:01 09/08/16 23:13 09/09/16 12:01 09/09/16 12:00 09/09/16 12:01 - Laboratory Laboratory results interpreted by me: 09/08/16 09/08/16 09/08/16 23:55 23:55 23:55 WBC 25.9 H RBC 5.46 H MCV 77 L MCH 25.6 L RDW 14.2 H Seg Neuts % (Manual) 83 H Lymphocytes % (Manual) 4 L Abs Neuts (Manual) 22.5 H Abs Monocytes (Manual) 1.8 H Sodium 132.8 L Potassium 2.9 L* Chloride 92 L Carbon Dioxide Glucose 120 H Calcium Magnesium 1.4 L Lipase 22.8 L Urine Protein Urine Ketones Urine Blood Urine Bilirubin Urine Urobilinogen Ur Leukocyte Esterase 09/08/16 09/09/16 09/09/16 23:59 01:41 09:29 WBC RBC MCV MCH RDW Seg Neuts % (Manual) Lymphocytes % (Manual) Abs Neuts (Manual) Abs Monocytes (Manual) Sodium 134.4 L Potassium 3.3 L Chloride Carbon Dioxide 19 L Glucose 118 H Calcium 7.8 L Magnesium Lipase Urine Protein >=500 H >=500 H Urine Ketones TRACE H Urine Blood MODERATE H LARGE H Urine Bilirubin SMALL H Urine Urobilinogen 2.0 H Ur Leukocyte Esterase SMALL H MODERATE H Discharge <MALU BLACK - Last Filed: 09/09/16 06:41> <DIONY ROOT - Last Filed: 09/09/16 12:58> - Discharge Clinical Impression: Ureterolithiasis, Hypokalemia, Hypomagnesemia Fever Qualifiers: Fever type: unspecified Qualified Code(s): R50.9 - Fever, unspecified UTI (urinary tract infection) Qualifiers: Urinary tract infection type: site unspecified Hematuria presence: with hematuria Qualified Code(s): N39.0 - Urinary tract infection, site not specified Hydronephrosis Qualifiers: Hydronephrosis type: with ureteral calculous obstruction Qualified Code(s): N13.2 - Hydronephrosis with renal and ureteral calculous obstruction Condition: Stable Disposition: [facility]
[2016-09-09] MEDS ORDERED: CEFTRIAXONE 1 GM/D5W RTU 50 ML IV ONE (01:20)
[2016-09-09] MEDS ORDERED: MAGNESIUM SULFATE/D5W 100 ML IV SCH (02:00)
[2016-09-09 02:06] LABS: APPEARANCE,URINE CLOUDY; BILIRUBIN,URINE SMALL (NEGATIVE); GLUCOSE, URINE NEGATIVE (NEGATIVE); KETONES,URINE NEGATIVE (NEGATIVE); LEUKOCYTE ESTERASE,URINE MODERATE (NEGATIVE); NITRITE,URINE NEGATIVE (NEGATIVE); PROTEIN,URINE >=500 mg/dL (NEGATIVE); URINE SPECIFIC GRAVITY 1.028
[2016-09-09] MEDS: POTASSI CL 20 MEQ/50 ML RIDER 50 ML IV SCH ×2 (02:20→04:54)
--- NOTE | 2016-09-09 02:55 | RADIOLOGY REPORT (SQ) ---
EXAM DESCRIPTION: KUB/ABDOMEN (SINGLE VIEW) COMPLETED DATE/TIME: 09/09/2016 2:28 am REASON FOR STUDY: right sided kidney stone status/location COMPARISON: 08/17/2011. NUMBER OF VIEWS: One view. TECHNIQUE: Supine radiographic image of the abdomen acquired. LIMITATIONS: None. FINDINGS: BOWEL GAS PATTERN: Normal bowel gas pattern. No dilated loops. CALCIFICATIONS: New 1.2 x 0.4 cm calcification overlies the right paracentral pelvis the cannot exclu de right distal ureteral stone(s). Previously described renal stones are not discerned. SOFT TISSUES: No gross mass or suggestion of organomegaly. HARDWARE: None in the abdomen. BONES: No acute fracture. No worrisome bone lesions. OTHER: No other significant finding. IMPRESSION: New 1.2 x 0.4 cm calcification overlies the right paracentral pelvis the cannot exclude right distal ureteral stone(s). TECHNICAL DOCUMENTATION: JOB ID: [id number] [email or web address]- All Rights Reserved
[2016-09-09] MEDS ORDERED: HYDROMORPHONE HCL INJ/PF 2 MG/ML AMPULE IV ONE ×3 (03:05→12:40)
[2016-09-09] MEDS ORDERED: LORAZEPAM INJ 2 MG/1 ML VIAL IV ONE (03:48)
--- NOTE | 2016-09-09 04:32 | RADIOLOGY REPORT (SQ) ---
EXAM DESCRIPTION: CT LTD RENAL STONE PROTOCOL ON COMPLETED DATE/TIME: 09/09/2016 4:10 am REASON FOR STUDY: UTI, flank pain, vomiting, kidney stone status COMPARISON: 08.04.16 TECHNIQUE: CT scan of the abdomen and pelvis performed without intravenous or oral contrast. Images reviewed with lung, soft tissue, and bone windows. Reconstructed coronal and sagittal MPR images revi ewed. All images stored on PACS. All CT scanners at this facility use dose modulation, iterative reconstruction, and/or weight based d osing when appropriate to reduce radiation dose to as low as reasonably achievable (ALARA). [facility]: Dose Right [facility]: CareDose [facility]: Dose Right [facility]: Teradose 4D [facility]: [email or web address] RADIATION DOSE: 759 LIMITATIONS: None. FINDINGS: LOWER CHEST: No significant findings. No nodules or infiltrates. NON-CONTRASTED LIVER, SPLEEN, ADRENALS: Evaluation limited by lack of IV contrast. No identified sign ificant masses. PANCREAS: No masses. No peripancreatic inflammatory changes. GALLBLADDER: Surgically absent. RIGHT KIDNEY AND URETER: 1.2 x 0.6 x 0.5 cm right distal ureteral stone within 5 cm of the right uret erovesicular junction with moderate right hydroureter, mild right hydronephrosis, moderate right madhuri l engorgement, and moderate right perinephric fat stranding. LEFT KIDNEY AND URETER: No suspicious masses. Assessment limited by lack of IV contrast. 0.4 cm lef t renal stone. No hydronephrosis or hydroureter. AORTA AND RETROPERITONEUM: No aneurysm. No retroperitoneal masses or adenopathy. BOWEL AND PERITONEAL CAVITY: No obvious masses or inflammatory changes. No free fluid. APPENDIX: Normal. PELVIS, BLADDER, AND ABDOMINAL WALL:No abnormal masses. No free fluid. Bladder normal. BONES: No significant findings. OTHER: No other significant finding. IMPRESSION: 1.2 cm right distal ureteral stone with moderate grade obstruction. TECHNICAL DOCUMENTATION: JOB ID: [id number] Quality ID # [id number]: Final reports with documentation of one or more dose reduction techniques (e.g., Au tomated exposure control, adjustment of the mA and/or kV according to patient size, use of iterative reconstruction technique) 2010 [employer]- All Rights Reserved
[2016-09-09] MEDS ORDERED: KETOROLAC TROMETHAMINE INJ/PF 30 MG/1 ML SDV IV ONE ×2 (04:40)
[2016-09-09 09:58] LABS: ANION GAP 13 (5-19); BLOOD UREA NITROGEN 17 mg/dL (7-20); CALCIUM 7.8 mg/dL (8.4-10.2); CARBON DIOXIDE 19 mmol/L (22-30); CHLORIDE 102 mmol/L (98-107); CREATININE RESULT 0.95 mg/dL (0.52-1.25); GLUCOSE 118 mg/dL (75-110); POTASSIUM 3.3 mmol/L (3.6-5.0); SODIUM 134.4 mmol/L (137-145)
[2016-09-09] MEDS ORDERED: ACETAMINOPHEN 325 MG TABLET PO ONE (11:44)
[2016-09-09] MEDS ORDERED: CIPROFLOXACIN 400 MG/D5W RTU 200 ML IV SCH (12:00)
[2016-09-09 13:17] VITALS: BP 110/64
== END 2016-09-09 13:20 | disposition short-term general hospital (02) ==
LOC: ER 22:57
DX: N13.2 Hydronephrosis with renal and ureteral calculous obstruction (principal); E87.6 Hypokalemia; E83.42 Hypomagnesemia; N39.0 Urinary tract infection, site not specified; M54.5 Low back pain; M54.9 Dorsalgia, unspecified; R10.9 Unspecified abdominal pain; R11.10 Vomiting, unspecified; R50.9 Fever, unspecified; Z79.899 Other long term (current) drug therapy
CPT/HCPCS: 96376; 99285; 96361; 51701; 96375; 96365; 96366; 96367; 96368; 36415; 87040; 87086; 83690; 83735; 85025; 87077; 87088; 80048; 80053; 81001; 87186; 74000; 76380; A9270; J1885; J2270; J1170; J2060; J3475; J2405; J3480; J7030; J0744; J0696

== ENCOUNTER 2016-11-30 08:21 | Emergency (ER) | payer MEDICARE, MEDICAID ==
[2016-11-30] MEDS ORDERED: KETOROLAC TROMETHAMINE INJ/PF 30 MG/1 ML SDV IV ONE (08:42)
[2016-11-30] MEDS ORDERED: ONDANSETRON HCL INJ/PF 4 MG/2 ML SDV IV ONE (08:42)
[2016-11-30 09:09] LABS: ABSOLUTE EOSINOPHILS # (AUTO) 0.6 10^3/uL (0.0-0.6); ABSOLUTE LYMPHOCYTES (AUTO) 2.9 10^3/uL (0.5-4.7); ABSOLUTE MONOCYTES (AUTO) 0.7 10^3/uL (0.1-1.4); ABSOLUTE NEUT (AUTO) 5.4 10^3/uL (1.7-8.2); BASOPHILS % (AUTO) 0.5 % (0-2); EOSINOPHILS % (AUTO) 5.7 % (0-6); HEMATOCRIT 36.4 % (36.0-47.0); HEMOGLOBIN 12.6 g/dL (12.0-15.5); HGB HCT DIFFERENCE 1.4; LYMPHOCYTES % (AUTO) 30.1 % (13-45); MEAN CORPUSCULAR HEMOGLOBIN 28.7 pg (27.0-33.4); MEAN CORPUSCULAR HGB CONC 34.7 g/dL (32.0-36.0); MEAN CORPUSCULAR VOLUME 83 fl (80-97); MONOCYTES % (AUTO) 7.4 % (3-13); RED CELL DISTRIBUTION WIDTH 14.4 % (11.5-14.0); SEGMENTED NEUTROPHILS % (AUTO) 56.3 % (42-78); WHITE BLOOD COUNT 9.6 10^3/uL (4.0-10.5)
[2016-11-30 09:18] LABS: APPEARANCE,URINE SLIGHTLY-CLOUDY; BILIRUBIN,URINE NEGATIVE (NEGATIVE); GLUCOSE, URINE NEGATIVE (NEGATIVE); KETONES,URINE NEGATIVE (NEGATIVE); LEUKOCYTE ESTERASE,URINE LARGE (NEGATIVE); NITRITE,URINE NEGATIVE (NEGATIVE); PROTEIN,URINE 100 mg/dL (NEGATIVE); UROBILINOGEN,URINE NEGATIVE mg/dL (<2.0)
[2016-11-30] MEDS ORDERED: NORMAL SALINE 1000 ML 1,000 ML IV ONE ×2 (09:19→10:23)
[2016-11-30 09:28] LABS: ALANINE AMINOTRANSFERASE 20 U/L (9-52); ALBUMIN 4.2 g/dL (3.5-5.0); ALKALINE PHOSPHATASE 89 U/L (38-126); ANION GAP 11 (5-19); ASPARTATE AMINO TRANSFERASE 17 U/L (14-36); BILIRUBIN,DIRECT 0.3 mg/dL (0.0-0.4); BILIRUBIN,TOTAL 0.3 mg/dL (0.2-1.3); BLOOD UREA NITROGEN 11 mg/dL (7-20); CALCIUM 10.2 mg/dL (8.4-10.2); CARBON DIOXIDE 21 mmol/L (22-30); CHLORIDE 108 mmol/L (98-107); CREATININE RESULT 0.82 mg/dL (0.52-1.25); GLUCOSE 98 mg/dL (75-110); LIPASE 153.4 U/L (23-300); POTASSIUM 4.5 mmol/L (3.6-5.0); TOTAL PROTEIN 7.1 g/dL (6.3-8.2)
--- NOTE | 2016-11-30 09:30 | ER Document Report ---
ED General - General Chief Complaint: Flank Pain Stated Complaint: LEFT SIDE FLANK PAIN Time Seen by Provider: 11/30/16 09:00 TRAVEL OUTSIDE OF THE [place] IN LAST 30 DAYS: No - HPI Notes: Patient is a 31-year-old female with a history of kidney stones and recent stent placement present to the ED complaining of left flank pain that radiates into the groin, dysuria, hematuria since her procedure 8 days ago. Patient states that she has been having intermittent fevers, but does not have an exact temperature. Patient has been having nausea and vomiting as well primarily over the last few days. The pain is described as sharp and colicky. She has been using [id number] meds with minimal relief. Patient is allergic to aspirin and topical iodine. Patient had her procedure performed at [facility]. She denies any , vaginal discharge/odor. Denies any headache , fever, neck pain, URI, sore throat, chest pain, palpitations, syncope, cough, shortness of breath, wheeze, dyspnea, urinary retention, loss of control of bowel or bladder, numbness/tingling, saddle anesthesia, muscle paralysis/ weakness, or rash. - Related Data Allergies/Adverse Reactions: aspirin [Aspirin] Allergy (Severe, Verified 11/30/16 08:31) THROAT SWELLS, HIVES iodine [Iodine] Allergy (Severe, Verified 11/30/16 08:31) Generalized Itching seafood Allergy (Severe, Uncoded 11/30/16 08:31) throat itches Past Medical History - Social History Smoking Status: Unknown if Ever Smoked Family History: Reviewed & Not Pertinent, CAD, Other Patient has suicidal ideation: No - Past Medical History Cardiac Medical History: Reports: Hx Hypercholesterolemia Denies: Hx Hypertension Pulmonary Medical History: Reports: Hx Asthma, Hx COPD Neurological Medical History: Reports: Hx Migraine Renal/ Medical History: Reports: Hx Kidney Stones. Denies: Hx Peritoneal Dialysis GI Medical History: Reports: Hx Gastroesophageal Reflux Disease, Hx Irritable Bowel Musculoskeltal Medical History: Reports Hx Musculoskeletal Deformity, Reports Hx Musculoskeletal Trauma Psychiatric Medical History: Reports: Hx Anxiety, Hx Attention Deficit Hyperactivity Disorder, Hx Bipolar Disorder, Hx Depression Past Surgical History: Reports: Hx Abdominal Surgery - UMBILICAL HERNIA, Hx Section, Hx Cholecystectomy, Hx Herniorrhaphy - Umbilical hernia repair , Hx Hysterectomy, Hx Orthopedic Surgery - left shoulder(slap shoulder), Hx Tonsillectomy, Hx Umbilical Hernia, Hx Urinary Tract Surgery - kidney stent 11/22. Denies: Hx Mastectomy, Hx Open Heart Surgery - Immunizations Immunizations up to date: Yes Hx Diphtheria, Pertussis, Tetanus Vaccination: Yes - 09/2010 Review of Systems - Review of Systems Notes: REVIEW OF SYSTEMS: CONSTITUTIONAL : Denies fever, chills, or sweats. Denies recent illness. EENT: Denies eye, ear, throat, or mouth pain or symptoms. Denies nasal or sinus congestion or discharge. Denies throat, tongue, or mouth swelling or difficulty swallowing. CARDIOVASCULAR: Denies chest pain. Denies palpitations or racing or irregular heart beat. Denies ankle edema. RESPIRATORY: Denies cough, cold, or chest congestion. Denies shortness of breath, difficulty breathing, or wheezing. GASTROINTESTINAL: see hpi GENITOURINARY: see hpi MUSCULOSKELETAL: see hpi (flank pain) SKIN: Denies rash, lesions or sores. NEUROLOGICAL: Denies confusion or altered mental status. Denies passing out or loss of consciousness. Denies dizziness or lightheadedness. Denies headache. Denies weakness or paralysis or loss of use of either side. Denies problems with gait or speech. Denies sensory loss, numbness, or tingling. ALL OTHER SYSTEMS REVIEWED AND NEGATIVE. Dictation was performed using [employer] voice recognition software Physical Exam - Vital signs Vitals: Temp Pulse Resp BP Pulse Ox 97.9 F 76 20 124/73 98 11/30/16 08:27 11/30/16 08:27 11/30/16 08:27 11/30/16 08:27 11/30/16 08:27 Notes: PHYSICAL EXAMINATION: GENERAL: Well-appearing, well-nourished and in no acute distress. LUNGS: Breath sounds clear to auscultation bilaterally and equal. No wheezes rales or rhonchi. HEART: Regular rate and rhythm without murmurs, rubs, gallops. ABDOMEN: Soft, nontender, nondistended abdomen. No guarding, no rebound. No masses appreciated. Normal bowel sounds present. + lt CVA tenderness. No inguinal hernia appreciated. Musculoskeletal: LE's b/l: FROM to passive/active. Strength 5+/5. Extremities: No cyanosis, clubbing, or edema b/l. Peripheral pulses 2+. Capillary refill less than 3 seconds. NEUROLOGICAL: Cranial nerves grossly intact. Normal speech, normal gait. Normal sensory, motor exams PSYCH: Normal mood, normal affect. SKIN: Warm, Dry, normal turgor, no rashes or lesions noted. Course - Re-evaluation Re-evalutation: 11/30/16 10:[address] Jacobo who is in agreement with discharge/plan: Patient is an afebrile, well-hydrated, 31-year-old female who presents the ED with a UTI status post ureteral stent placement. Vitals are stable. PE otherwise unremarkable. CBC, CMP unremarkable for acute pathology. Urinalysis showed bacteria and hematuria. CT showed proper placement of the stent without any stones. Hematuria can be easily contributed to the stent placement, and she is also prone to infection because of the stent. Rocephin 1 g given today. I will send her home with a prescription for Keflex to take 3 times a day for 7 days. I will send her home with a prescription for Pyridium and zofran as well. Low suspicion/risk for any displacement or clotting of her ureteral stent , sepsis, meningitis, urosepsis, acute appendicitis, bowel obstruction, acute cholecystitis, acute cholangitis, perforated diverticulitis, incarcerated hernia , pancreatitis, perforated ulcer, peritonitis, sepsis, pelvic inflammatory disease, ectopic , tubo-ovarian abscess, ovarian torsion, or other systemic emergent condition at this time. Patient is aware that her condition can change from initial presentation and she needs to monitor symptoms closely and seek medical attention if any acute changes. Conservative measures otherwise for symptoms. Recheck with your urologist this week. Recheck with your PCM this week as well. Return to the ED with any worsening/concerning symptoms otherwise as reviewed in discharge. Patient is in agreement. - Vital Signs Vital signs: Temp Pulse Resp BP Pulse Ox 97.9 F 76 20 124/73 98 11/30/16 08:27 11/30/16 08:27 11/30/16 08:27 11/30/16 08:27 11/30/16 08:27 - Laboratory Result Diagrams: 11/30/16 08:53 11/30/16 08:53 Laboratory results interpreted by me: 11/30/16 11/30/16 11/30/16 08:53 08:53 08:53 RDW 14.4 H Chloride 108 H Carbon Dioxide 21 L Urine Protein 100 H Urine Blood LARGE H Ur Leukocyte Esterase LARGE H Discharge - Discharge Clinical Impression: UTI (urinary tract infection) Qualifiers: Urinary tract infection type: site unspecified Hematuria presence: with hematuria Qualified Code(s): N39.0 - Urinary tract infection, site not specified ; R31.9 - Hematuria, unspecified Condition: Stable Disposition: HOME, SELF-CARE Instructions: Cephalexin ([facility]), Urinary Tract Infection ([facility]), Urinary Anesthetic Agent ([facility]) Additional Instructions: Push fluids (i.e. water, cranberry juice) Proper hygenic technique Keep the skin clean Tylenol/ibuprofen as needed May use over the counter AZO for burning with urination Take medications as directed F/u with your PCM in 2-3 days for a recheck Follow-up with your urologist this week for further evaluation and management. Return to the ED with any worsening symptoms and/or development of fever, headache, chest pain, palpitations, syncope, shortness of breath, trouble breathing, abdominal pain, n/v/d, blood in stool/urine, loss of control of bowel /bladder, urinary retention, muscle weakness/paralysis, saddle anesthesia, numbness/tingling, or other worsening symptoms that are concerning to you. Prescriptions: Cephalexin Monohydrate [Keflex 500 mg Capsule] 500 mg PO TID #21 capsule Ondansetron [Zofran Odt 4 mg Tablet] 1 - 2 tab PO Q4H PRN #15 tab.rapdis PRN Reason: For Nausea/Vomiting Phenazopyridine HCl [Pyridium 200 mg Tablet] 200 mg PO TID #15 tablet Referrals: YAN FORREST MD [Primary Care Provider] - Follow up in 3-5 days
--- NOTE | 2016-11-30 10:18 | RADIOLOGY REPORT (SQ) ---
EXAM DESCRIPTION: CT LTD RENAL STONE PROTOCOL ON COMPLETED DATE/TIME: 11/30/2016 9:51 am REASON FOR STUDY: left flank pain, recent stent placement for stone COMPARISON: Prior CT abdomen pelvis 09/24/2010, 09/28/2010, 08/22/2011, 03/15/2012, 10/26/2013, 08/04/2016, 09/09/2016 TECHNIQUE: CT scan of the abdomen and pelvis performed without intravenous or oral contrast. Images reviewed with lung, soft tissue, and bone windows. Reconstructed coronal and sagittal MPR images revi ewed. All images stored on PACS. All CT scanners at this facility use dose modulation, iterative reconstruction, and/or weight based d osing when appropriate to reduce radiation dose to as low as reasonably achievable (ALARA). [facility]: Dose Right [facility]: CareDose [facility]: Dose Right [facility]: Teradose 4D [facility]: Smart Technologies RADIATION DOSE: Up-to-date CT equipment and radiation dose reduction techniques were employed. CTDIv ol: 14.9 mGy. DLP: 796 mGy-cm.mGy. LIMITATIONS: None. FINDINGS: LOWER CHEST: No significant findings. No nodules or infiltrates. NON-CONTRASTED LIVER, SPLEEN, ADRENALS: Evaluation limited by lack of IV contrast. No identified sign ificant masses. PANCREAS: No masses. No peripancreatic inflammatory changes. GALLBLADDER: Surgically absent RIGHT KIDNEY AND URETER: No suspicious masses. Assessment limited by lack of IV contrast. No right- sided urinary stones. No hydronephrosis or hydroureter. LEFT KIDNEY AND URETER: No suspicious masses. Assessment limited by lack of IV contrast. No left-si ded urinary stones. A left double-J stent is present, in good positioning. No hydronephrosis or hy droureter. AORTA AND RETROPERITONEUM: No aneurysm. No retroperitoneal masses or adenopathy. BOWEL AND PERITONEAL CAVITY: No obvious masses or inflammatory changes. No free fluid. APPENDIX: Normal. PELVIS, BLADDER, AND ABDOMINAL WALL:No abnormal masses. No free fluid. Bladder normal. Post hysterec noe. BONES: No significant findings. OTHER: No other significant finding. IMPRESSION: No urinary calculi are identified. No hydronephrosis or hydroureter. Left double-J ure teral stent in good positioning. COMMENT: Quality ID # [id number]: Final reports with documentation of one or more dose reduction techniques (e.g., Automated exposure control, adjustment of the mA and/or kV according to patient size, use of iterative reconstruction technique) TECHNICAL DOCUMENTATION: JOB ID: [id number] [employer]- All Rights Reserved
[2016-11-30] MEDS ORDERED: MORPHINE SULFATE 10 MG/ML INJ IV ONE (10:19)
[2016-11-30] MEDS ORDERED: CEFTRIAXONE 1 GM/D5W RTU 1 GM/50 ML RTUPB IV ONE (10:22)
[2016-11-30 11:21] VITALS: BP 106/64
== END 2016-11-30 11:21 | disposition home or self-care (01) ==
LOC: ER 08:21
DX: N39.0 Urinary tract infection, site not specified (principal); R11.2 Nausea with vomiting, unspecified; R10.9 Unspecified abdominal pain; E78.00 Pure hypercholesterolemia, unspecified; Z87.442 Personal history of urinary calculi; Z90.49 Acquired absence of other specified parts of digestive tract; Z90.710 Acquired absence of both cervix and uterus; Z88.6 Allergy status to analgesic agent; Z91.013 Allergy to seafood
CPT/HCPCS: 99284; 96375; 96365; 36415; 87086; 83690; 85025; 80053; 81001; 76380; J1885; J2270; J2405; J7030; J0696

== ENCOUNTER 2017-01-20 14:47 | Emergency (ER) | payer MEDICARE, MEDICAID ==
[2017-01-20 14:53] VITALS: BP 124/69
[2017-01-20] MEDS ORDERED: ACETAMINOPHEN 325 MG TABLET PO ONE (15:04)
--- NOTE | 2017-01-20 15:04 | ER Document Report ---
HPI - HPI Pain Level: 2 Notes: Patient is a 31-year-old female who presents the ED complaining of right arm and right elbow pain status post fall prior to arrival. Patient states that she fell about 3 hours ago on some concrete steps and scraped her knee and landed on her right arm. Patient denies any head injury, loss of consciousness , nausea/vomiting. Patient states that she did skin up her right knee, but is ambulate without any pain. Patient states that she does have issues with range of motion to her right elbow because of the pain. She has not noticed any obvious bruising or swelling. She has not had any medications for her symptoms. Patient admits to smoking but denies IV drug use. Denies any other significant past medical history. Denies any headache, fever, head injury, neck pain, changes in vision/speech/mentation/hearing, URI, sore throat, chest pain, palpitations, syncope, cough, shortness of breath, wheeze, dyspnea, abdominal pain, nausea/vomiting/diarrhea, urinary retention, dysuria, hematuria , back pain, loss of control of bowel or bladder, numbness/tingling, saddle anesthesia, or rash. - ROS Notes: REVIEW OF SYSTEMS: CONSTITUTIONAL : Denies fever, chills, or sweats. Denies recent illness. EENT: Denies eye, ear, throat, or mouth pain or symptoms. Denies nasal or sinus congestion or discharge. Denies throat, tongue, or mouth swelling or difficulty swallowing. CARDIOVASCULAR: Denies chest pain. Denies palpitations or racing or irregular heart beat. Denies ankle edema. RESPIRATORY: Denies cough, cold, or chest congestion. Denies shortness of breath, difficulty breathing, or wheezing. GASTROINTESTINAL: Denies abdominal pain or distention. Denies nausea, vomiting , or diarrhea. Denies blood in vomitus, stools, or per rectum. Denies black, tarry stools. Denies constipation. GENITOURINARY: Denies difficulty urinating, painful urination, burning, frequency, blood in urine, or discharge. MUSCULOSKELETAL: see hpi SKIN: see hpi NEUROLOGICAL: Denies confusion or altered mental status. Denies passing out or loss of consciousness. Denies dizziness or lightheadedness. Denies headache. Denies weakness or paralysis or loss of use of either side. Denies problems with gait or speech. Denies sensory loss, numbness, or tingling. ALL OTHER SYSTEMS REVIEWED AND NEGATIVE. Dictation was performed using [employer] voice recognition software - REPRODUCTIVE Reproductive: DENIES: : - DERM Skin Color: Normal Past Medical History - Social History Smoking Status: Current Every Day Smoker Family History: Reviewed & Not Pertinent, CAD, Other - Past Medical History Cardiac Medical History: Reports: Hx Hypercholesterolemia Denies: Hx Hypertension Pulmonary Medical History: Reports: Hx Asthma, Hx COPD Neurological Medical History: Reports: Hx Migraine Renal/ Medical History: Reports: Hx Kidney Stones. Denies: Hx Peritoneal Dialysis GI Medical History: Reports: Hx Gastroesophageal Reflux Disease, Hx Irritable Bowel Musculoskeltal Medical History: Reports Hx Musculoskeletal Deformity, Reports Hx Musculoskeletal Trauma Psychiatric Medical History: Reports: Hx Anxiety, Hx Attention Deficit Hyperactivity Disorder, Hx Bipolar Disorder, Hx Depression Past Surgical History: Reports: Hx Abdominal Surgery - UMBILICAL HERNIA, Hx Section, Hx Cholecystectomy, Hx Herniorrhaphy - Umbilical hernia repair , Hx Hysterectomy, Hx Orthopedic Surgery - left shoulder(slap shoulder), Hx Tonsillectomy, Hx Umbilical Hernia, Hx Urinary Tract Surgery - kidney stent 11/22. Denies: Hx Mastectomy, Hx Open Heart Surgery - Immunizations Immunizations up to date: Yes Hx Diphtheria, Pertussis, Tetanus Vaccination: Yes - 09/2010 Vertical Provider Document - CONSTITUTIONAL Agree With Documented VS: Yes Notes: PHYSICAL EXAMINATION: GENERAL: Well-appearing, well-nourished and in no acute distress. A&Ox4 HEAD: Atraumatic, normocephalic. EYES: Pupils equal round and reactive to light, extraocular movements intact, sclera anicteric, conjunctiva are normal. NECK: Normal range of motion, supple without lymphadenopathy. Non-tender. LUNGS: Breath sounds clear to auscultation bilaterally and equal. No wheezes rales or rhonchi. HEART: Regular rate and rhythm without murmurs, rubs, gallops. ABDOMEN: Soft, nontender, nondistended abdomen. No guarding, no rebound. No masses appreciated. Normal bowel sounds present. No CVA tenderness bilaterally. Musculoskeletal: Rt UE: FROM to passive/active to the shoulder. LROM to the elbow. + tenderness to palp of the distal humerus and proximal forearm. No obvious swelling/ecchymosis noted. N/V intact distal. Rt knee: small abrasion noted to anterior knee. FROM/Strength 5+/5. No bony tenderness noted. N/V intact distal. Extremities: No cyanosis, clubbing, or edema b/l. Peripheral pulses 2+. Capillary refill less than 3 seconds. NEUROLOGICAL: Cranial nerves grossly intact. Normal speech, normal gait. Normal sensory, motor exams PSYCH: Normal mood, normal affect. SKIN: Warm, Dry, normal turgor, no rashes or lesions noted. - INFECTION CONTROL TRAVEL OUTSIDE OF THE [place] IN LAST 30 DAYS: No - RESPIRATORY O2 Sat by Pulse Oximetry: 100 Course - Re-evaluation Re-evalutation: 01/20/17 15:40 Patient is an afebrile, well-hydrated, 31-year-old female who presents the ED with right arm pain, suspect contusion. Vitals are stable. PE is otherwise unremarkable for any focal neurological deficits. She has no evidence of neurovascular compromise, obvious tendon/ligament rupture, obvious fracture or dislocation. X-ray of her humerus and forearm were unremarkable for any acute pathology. Low suspicion for any other systemic emergent condition at this time. Patient to monitor symptoms for any acute changes and seek medical attention if so. Tylenol was given p.o. today. I will give her a temporary sling that she may use for a couple days as needed. Recheck with your PCM in 3- 5 days. Consider consult with orthopedics and physical therapy. Return to the ED with any worsening/concerning symptoms otherwise as reviewed in discharge. Patient is in agreement. - Vital Signs Vital signs: Temp Pulse Resp BP Pulse Ox 97.3 F 76 16 124/69 100 01/20/17 14:52 01/20/17 14:52 01/20/17 14:52 01/20/17 14:52 01/20/17 14:52 Discharge - Discharge Clinical Impression: Right arm pain Condition: Stable Disposition: HOME, SELF-CARE Instructions: Temporary Sling ([facility]), Ice & Elevation ([facility]), Warm Packs ([facility]) Additional Instructions: Rest, Ice, Compression, Elevation Use sling as directed Tylenol as needed Light stretches daily Strength exercises as able Moist heat and massage may help F/u with your PCP in 3-5 days for a recheck Consider consult(s) with Orthopedics/physical therapy for ongoing/worsening symptoms Return to the ED with any worsening symptoms and/or development of fever, headache, chest pain, palpitations, syncope, shortness of breath, trouble breathing, abdominal pain, n/v/d, muscle weakness/paralysis, numbness/tingling, swelling, redness, or other worsening symptoms that are concerning to you. Referrals: YAN FORREST MD [Primary Care Provider] - Follow up in 3-5 days [facility] [Provider Group] - Follow up as needed
--- NOTE | 2017-01-20 15:38 | RADIOLOGY REPORT (SQ) ---
EXAM DESCRIPTION: HUMERUS RIGHT COMPLETED DATE/TIME: 01/20/2017 3:23 pm REASON FOR STUDY: rt arm/elbow pain s/p fall COMPARISON: None. NUMBER OF VIEWS: Two views. TECHNIQUE: Two radiographic images were acquired of the right humerus to include elbow and shoulder in at least one projection. LIMITATIONS: None. FINDINGS: MINERALIZATION: Normal. BONES: No acute fracture or dislocation. No worrisome bone lesions. SOFT TISSUES: No obvious swelling or foreign body. OTHER: No other significant finding. IMPRESSION: NEGATIVE STUDY OF THE RIGHT HUMERUS. NO RADIOGRAPHIC EVIDENCE OF ACUTE INJURY. TECHNICAL DOCUMENTATION: JOB ID: [id number] [email or web address]- All Rights Reserved
--- NOTE | 2017-01-20 15:38 | RADIOLOGY REPORT (SQ) ---
EXAM DESCRIPTION: FOREARM RIGHT COMPLETED DATE/TIME: 01/20/2017 3:23 pm REASON FOR STUDY: rt arm/elbow pain s/p fall COMPARISON: None. NUMBER OF VIEWS: Two views. TECHNIQUE: Two radiographic images acquired of the right forearm, including elbow and wrist in at le ast one projection. LIMITATIONS: None. FINDINGS: MINERALIZATION: Normal. BONES: No acute fracture. No worrisome bone lesions. SOFT TISSUES: No obvious swelling or foreign body. OTHER: No other significant finding. IMPRESSION: NEGATIVE STUDY OF THE RIGHT FOREARM. NO RADIOGRAPHIC EVIDENCE OF ACUTE INJURY. TECHNICAL DOCUMENTATION: JOB ID: [id number] [employer]- All Rights Reserved
== END 2017-01-20 16:00 | disposition home or self-care (01) ==
LOC: ER 14:47
DX: M79.601 Pain in right arm (principal); M25.521 Pain in right elbow; S80.219A Abrasion, unspecified knee, initial encounter; W10.8XXA Fall (on) (from) other stairs and steps, initial encounter; F17.200 Nicotine dependence, unspecified, uncomplicated; J44.9 Chronic obstructive pulmonary disease, unspecified
CPT/HCPCS: 99283; 73090; 73060; A9270

== ENCOUNTER 2017-04-05 16:31 | Emergency (ER) | payer MEDICARE, MEDICAID ==
--- NOTE | 2017-04-05 17:54 | ER Document Report ---
ED Medical Screen (RME) - General Chief Complaint: Fever Stated Complaint: FEVER,NUMBNESS Time Seen by Provider: 04/05/17 17:49 Notes: cough/congestion with fever for one month. Seen at pcp office on Mar 29, put on doxy. Pt states she has vomited it up each time she takes it. Called PCP and told to try taking with food. Did not prescribed any new antibiotics because they might interfere with her psych meds. Pt has hx asthma. Is out of her inhaler. I have greeted and performed a rapid initial assessment of this patient. A comprehensive ED assessment and evaluation of the patient, analysis of test results and completion of the medical decision making process will be conducted by additional ED providers. TRAVEL OUTSIDE OF THE [place] IN LAST 30 DAYS: No - Related Data Allergies/Adverse Reactions: aspirin [Aspirin] Allergy (Severe, Verified 04/05/17 17:50) THROAT SWELLS, HIVES iodine [Iodine] Allergy (Severe, Verified 04/05/17 17:50) Generalized Itching seafood Allergy (Severe, Uncoded 04/05/17 17:50) throat itches Past Medical History - Past Medical History Cardiac Medical History: Reports: Hx Hypercholesterolemia Denies: Hx Hypertension Pulmonary Medical History: Reports: Hx Asthma, Hx COPD Neurological Medical History: Reports: Hx Migraine Renal/ Medical History: Reports: Hx Kidney Stones. Denies: Hx Peritoneal Dialysis GI Medical History: Reports: Hx Gastroesophageal Reflux Disease, Hx Irritable Bowel Musculoskeltal Medical History: Reports Hx Musculoskeletal Deformity, Reports Hx Musculoskeletal Trauma Psychiatric Medical History: Reports: Hx Anxiety, Hx Attention Deficit Hyperactivity Disorder, Hx Bipolar Disorder, Hx Depression Past Surgical History: Reports: Hx Abdominal Surgery - UMBILICAL HERNIA, Hx Section, Hx Cholecystectomy, Hx Herniorrhaphy - Umbilical hernia repair , Hx Hysterectomy, Hx Orthopedic Surgery - left shoulder(slap shoulder), Hx Tonsillectomy, Hx Umbilical Hernia, Hx Urinary Tract Surgery - kidney stent 11/22. Denies: Hx Mastectomy, Hx Open Heart Surgery - Immunizations Immunizations up to date: Yes Hx Diphtheria, Pertussis, Tetanus Vaccination: Yes - 09/2010 Physical Exam - Vital signs Vitals: Temp Pulse Resp BP Pulse Ox 98.2 F 72 14 122/70 99 04/05/17 16:39 04/05/17 16:39 04/05/17 16:39 04/05/17 16:39 04/05/17 16:39 Course - Vital Signs Vital signs: Temp Pulse Resp BP Pulse Ox 98.2 F 72 14 122/70 99 04/05/17 16:39 04/05/17 16:39 04/05/17 16:39 04/05/17 16:39 04/05/17 16:39
--- NOTE | 2017-04-05 18:13 | RADIOLOGY REPORT (SQ) ---
EXAM DESCRIPTION: CHEST PA/LAT COMPLETED DATE/TIME: 04/05/2017 6:07 pm REASON FOR STUDY: cough, fever COMPARISON: 12/17/2013. EXAM PARAMETERS: NUMBER OF VIEWS: two views TECHNIQUE: Digital Frontal and Lateral radiographic views of the chest acquired. RADIATION DOSE: NA LIMITATIONS: none FINDINGS: LUNGS AND PLEURA: No opacities, masses or pneumothorax. No pleural effusion. MEDIASTINUM AND HILAR STRUCTURES: No masses or contour abnormalities. HEART AND VASCULAR STRUCTURES: Heart normal size. No evidence for failure. BONES: No acute findings. HARDWARE: None in the chest. OTHER: No other significant finding. IMPRESSION: NO SIGNIFICANT RADIOGRAPHIC FINDING IN THE CHEST. TECHNICAL DOCUMENTATION: JOB ID: [id number] [employer]- All Rights Reserved
--- NOTE | 2017-04-05 21:08 | ER Document Report ---
ED General - General Chief Complaint: Fever Stated Complaint: FEVER,NUMBNESS Time Seen by Provider: 04/05/17 17:49 Mode of Arrival: Ambulatory Information source: Patient Notes: 31 yo female taking doxycycline for bronchitis, sat in sun with tank top on yesterday, got sunburn. Worried about the burning sensation to sunburn area. vomited once, no diarrhea. No abdominal pain. No chest pain or SOB. TRAVEL OUTSIDE OF THE [place] IN LAST 30 DAYS: No - Related Data Allergies/Adverse Reactions: aspirin [Aspirin] Allergy (Severe, Verified 04/05/17 17:50) THROAT SWELLS, HIVES iodine [Iodine] Allergy (Severe, Verified 04/05/17 17:50) Generalized Itching seafood Allergy (Severe, Uncoded 04/05/17 17:50) throat itches Past Medical History - General Information source: Patient - Social History Smoking Status: Current Every Day Smoker Chew tobacco use (# tins/day): No Frequency of alcohol use: None Drug Abuse: None Lives with: Family Family History: Reviewed & Not Pertinent Patient has suicidal ideation: No Patient has homicidal ideation: No - Past Medical History Cardiac Medical History: Reports: Hx Hypercholesterolemia Pulmonary Medical History: Reports: Hx Asthma, Hx COPD Neurological Medical History: Reports: Hx Migraine Renal/ Medical History: Reports: Hx Kidney Stones. Denies: Hx Peritoneal Dialysis GI Medical History: Reports: Hx Gastroesophageal Reflux Disease, Hx Irritable Bowel Musculoskeltal Medical History: Reports Hx Musculoskeletal Deformity, Reports Hx Musculoskeletal Trauma Psychiatric Medical History: Reports: Hx Anxiety, Hx Attention Deficit Hyperactivity Disorder, Hx Bipolar Disorder, Hx Depression Past Surgical History: Reports: Hx Abdominal Surgery - UMBILICAL HERNIA, Hx Section, Hx Cholecystectomy, Hx Herniorrhaphy - Umbilical hernia repair , Hx Hysterectomy, Hx Orthopedic Surgery - left shoulder(slap shoulder), Hx Tonsillectomy, Hx Umbilical Hernia, Hx Urinary Tract Surgery - kidney stent 11/22. Denies: Hx Mastectomy, Hx Open Heart Surgery - Immunizations Immunizations up to date: Yes Hx Diphtheria, Pertussis, Tetanus Vaccination: Yes - 09/2010 Review of Systems - Review of Systems Constitutional: No symptoms reported EENT: No symptoms reported Cardiovascular: No symptoms reported Respiratory: No symptoms reported Gastrointestinal: See HPI Genitourinary: No symptoms reported Female Genitourinary: No symptoms reported Musculoskeletal: No symptoms reported Skin: See HPI Hematologic/Lymphatic: No symptoms reported Neurological/Psychological: No symptoms reported Physical Exam - Vital signs Vitals: Temp Pulse Resp BP Pulse Ox 98.2 F 72 14 122/70 99 04/05/17 16:39 04/05/17 16:39 04/05/17 16:39 04/05/17 16:39 04/05/17 16:39 Interpretation: Normal - General General appearance: Appears well, Alert - HEENT Head: Normocephalic, Atraumatic Eyes: Normal Pupils: PERRL Pharynx: Normal Neck: Supple - Respiratory Respiratory status: No respiratory distress Chest status: Nontender Breath sounds: Normal Chest palpation: Normal - Cardiovascular Rhythm: Regular Heart sounds: Normal auscultation Murmur: No - Abdominal Inspection: Normal Distension: No distension Bowel sounds: Normal Tenderness: Nontender Organomegaly: No organomegaly - Back Back: Normal, Nontender - Extremities General upper extremity: Normal inspection, Nontender, Normal color, Normal ROM , Normal temperature General lower extremity: Normal inspection, Nontender, Normal color, Normal ROM , Normal temperature, Normal weight bearing. No: Vanda's sign - Neurological Neuro grossly intact: Yes Cognition: Normal Orientation: AAOx4 Fariba Coma Scale Eye Opening: Spontaneous Fariba Coma Scale Verbal: Oriented Arnold Coma Scale Motor: Obeys Commands Arnold Coma Scale Total: 15 Speech: Normal Motor strength normal: LUE, RUE, LLE, RLE Sensory: Normal - Psychological Associated symptoms: Normal affect, Normal mood - Skin Skin Temperature: Warm Skin Moisture: Dry Skin Color: Other - 1st degree sunburn to face, shoulders, forearms Course - Re-evaluation Re-evalutation: 04/05/17 22:39 Patient is breathing easier after the nebulizer treatment, and there is some forced expiratory wheezing after the neb she does not want to wait for any more nebulizers I will dispense an albuterol metered-dose inhaler and treat her with prednisone. 04/05/17 22:41 Urinalysis is negative, chemistry is normal, white blood cell count is 12.8 with no segmental shift. Given copies to pt of all labs and xray report - Vital Signs Vital signs: Temp Pulse Resp BP Pulse Ox 98.1 F 82 18 124/84 100 04/05/17 23:00 04/05/17 23:00 04/05/17 23:00 04/05/17 23:00 04/05/17 23:00 - Laboratory Result Diagrams: 04/05/17 21:10 04/05/17 21:10 Laboratory results interpreted by me: 04/05/17 04/05/17 21:10 21:10 WBC 12.8 H RBC 5.45 H MCV 78 L MCH 25.3 L RDW 15.1 H Seg Neutrophils % 35.9 L Lymphocytes % 52.3 H Absolute Lymphocytes 6.7 H Calcium 10.3 H Discharge - Discharge Clinical Impression: Sunburn, Bronchitis Condition: Good Disposition: HOME, SELF-CARE Instructions: Acetaminophen, Bronchitis With Bronchospasm (Wheezing) (OM), Inhaled Bronchodilators (OM), Stop Smoking (OM), Steroid Medication Additional Instructions: no sun exposure, the doxycycline makes you more sensitive to the sun finish the doxycycline take the prednisone use the albuterol MDI for the cough, to help get up the mucous copy of negative chest xray report given to you see your doctor for follow up quit smoking Prescriptions: Prednisone [Deltasone 20 mg Tablet] 40 mg PO DAILY #8 tablet Forms: Return to Work
[2017-04-05 21:30] LABS: ABSOLUTE BASOPHILS # (AUTO) 0.1 10^3/uL (0.0-0.2); ABSOLUTE EOSINOPHILS # (AUTO) 0.4 10^3/uL (0.0-0.6); ABSOLUTE LYMPHOCYTES (AUTO) 6.7 10^3/uL (0.5-4.7); ABSOLUTE MONOCYTES (AUTO) 1.1 10^3/uL (0.1-1.4); ABSOLUTE NEUT (AUTO) 4.6 10^3/uL (1.7-8.2); BASOPHILS % (AUTO) 0.4 % (0-2); EOSINOPHILS % (AUTO) 2.8 % (0-6); HEMATOCRIT 42.5 % (36.0-47.0); HEMOGLOBIN 13.8 g/dL (12.0-15.5); LYMPHOCYTES % (AUTO) 52.3 % (13-45); MEAN CORPUSCULAR HEMOGLOBIN 25.3 pg (27.0-33.4); MEAN CORPUSCULAR HGB CONC 32.4 g/dL (32.0-36.0); MEAN CORPUSCULAR VOLUME 78 fl (80-97); MONOCYTES % (AUTO) 8.6 % (3-13); PLATELET COUNT 356 10^3/uL (150-450); RED BLOOD COUNT 5.45 10^6/uL (3.72-5.28); RED CELL DISTRIBUTION WIDTH 15.1 % (11.5-14.0); SEGMENTED NEUTROPHILS % (AUTO) 35.9 % (42-78); TOTAL CELLS COUNTED % (AUTO) 100 %; WHITE BLOOD COUNT 12.8 10^3/uL (4.0-10.5)
[2017-04-05 21:37] LABS: ALANINE AMINOTRANSFERASE 22 U/L (9-52); ALBUMIN 4.9 g/dL (3.5-5.0); ALKALINE PHOSPHATASE 83 U/L (38-126); ANION GAP 10 (5-19); ASPARTATE AMINO TRANSFERASE 20 U/L (14-36); BILIRUBIN,DIRECT 0.3 mg/dL (0.0-0.4); BILIRUBIN,TOTAL 0.4 mg/dL (0.2-1.3); BLOOD UREA NITROGEN 15 mg/dL (7-20); CALCIUM 10.3 mg/dL (8.4-10.2); CARBON DIOXIDE 29 mmol/L (22-30); CHLORIDE 102 mmol/L (98-107); GLUCOSE 88 mg/dL (75-110); LIPASE 119.5 U/L (23-300); POTASSIUM 3.8 mmol/L (3.6-5.0); SODIUM 141.4 mmol/L (137-145); TOTAL PROTEIN 7.5 g/dL (6.3-8.2)
[2017-04-05 21:38] LABS: APPEARANCE,URINE SLIGHTLY-CLOUDY; BILIRUBIN,URINE NEGATIVE (NEGATIVE); COLOR,URINE YELLOW; GLUCOSE, URINE NEGATIVE (NEGATIVE); KETONES,URINE NEGATIVE (NEGATIVE); LEUKOCYTE ESTERASE,URINE NEGATIVE (NEGATIVE); NITRITE,URINE NEGATIVE (NEGATIVE); PROTEIN,URINE NEGATIVE (NEGATIVE); URINE SPECIFIC GRAVITY 1.024; UROBILINOGEN,URINE NEGATIVE mg/dL (<2.0)
[2017-04-05] MEDS ORDERED: IPRATROPIUM/ALBUTEROL 0.5-2.5 MG/3 ML AMPUL NEB ONE (21:59)
[2017-04-05] MEDS ORDERED: ALBUTEROL SULFATE HFA (90 MCG/PUFF) 8 GM MDI (1 MDI/ER DISP) IH PRN (22:38)
[2017-04-05] MEDS ORDERED: PREDNISONE 20 MG TABLET PO ONE (22:38)
[2017-04-05 23:18] VITALS: BP 124/84
== END 2017-04-05 23:17 | disposition home or self-care (01) ==
LOC: ER 16:31
DX: J40 Bronchitis, not specified as acute or chronic (principal); L55.9 Sunburn, unspecified; R50.9 Fever, unspecified; R20.0 Anesthesia of skin; F17.200 Nicotine dependence, unspecified, uncomplicated
CPT/HCPCS: 94640; 99283; 36415; 83690; 85025; 80053; 81001; 71046; A9270 ×2; J3490; J7512; J7620

== ENCOUNTER 2017-04-17 13:01 | Emergency (ER) | payer MEDICARE, MEDICAID ==
--- NOTE | 2017-04-17 15:10 | ER Document Report ---
ED Medical Screen (RME) - General Chief Complaint: Numbness of Arm Stated Complaint: NUMBNESS IN ARMS Time Seen by Provider: 04/17/17 15:05 Mode of Arrival: Ambulatory Information source: Patient Notes: 31-year-old female with a history of bipolar affective disorder, PTSD who presents to the emergency room with numbness to the upper extremities. Patient states it has been going on for 3 weeks and seems to be getting worse. Patient denies any motor weakness. Patient does say she has pain with range of motion of the right shoulder. TRAVEL OUTSIDE OF THE [place] IN LAST 30 DAYS: No - HPI Onset: Other - For the past 3 weeks Onset/Duration: Gradual Quality of pain: No pain Severity: None Pain Level: Denies Associated Symptoms: denies: Chest pain, Fever, Shortness of breath Exacerbated by: Denies Relieved by: Denies Similar symptoms previously: Yes Recently seen / treated by doctor: Yes - Related Data Smoking: Non-smoker Frequency of alcohol use: None Drug Abuse: None Allergies/Adverse Reactions: aspirin [Aspirin] Allergy (Severe, Verified 04/17/17 13:03) THROAT SWELLS, HIVES iodine [Iodine] Allergy (Severe, Verified 04/17/17 13:03) Generalized Itching seafood Allergy (Severe, Uncoded 04/17/17 13:03) throat itches Past Medical History - General Information source: Patient - Social History Cigarette use (# per day): No Chew tobacco use (# tins/day): No Frequency of alcohol use: None Drug Abuse: None Lives with: Family Family history: None - Past Medical History Cardiac Medical History: Reports: Hx Hypercholesterolemia Denies: Hx Hypertension Pulmonary Medical History: Reports: Hx Asthma, Hx COPD Neurological Medical History: Reports: Hx Migraine Renal/ Medical History: Reports: Hx Kidney Stones. Denies: Hx Peritoneal Dialysis GI Medical History: Reports: Hx Gastroesophageal Reflux Disease, Hx Irritable Bowel Musculoskeltal Medical History: Reports Hx Musculoskeletal Deformity, Reports Hx Musculoskeletal Trauma Psychiatric Medical History: Reports: Hx Anxiety, Hx Attention Deficit Hyperactivity Disorder, Hx Bipolar Disorder, Hx Depression Past Surgical History: Reports: Hx Abdominal Surgery - UMBILICAL HERNIA, Hx Section, Hx Cholecystectomy, Hx Herniorrhaphy - Umbilical hernia repair , Hx Hysterectomy, Hx Orthopedic Surgery - left shoulder(slap shoulder), Hx Tonsillectomy, Hx Umbilical Hernia, Hx Urinary Tract Surgery - kidney stent 11/22. Denies: Hx Mastectomy, Hx Open Heart Surgery - Immunizations Immunizations up to date: Yes Hx Diphtheria, Pertussis, Tetanus Vaccination: Yes - 09/2010 Review of Systems - Review of Systems Constitutional: denies: Chills, Fever EENT: No symptoms reported Cardiovascular: No symptoms reported Respiratory: No symptoms reported Gastrointestinal: No symptoms reported Genitourinary: No symptoms reported Female Genitourinary: No symptoms reported Musculoskeletal: No symptoms reported Skin: No symptoms reported Hematologic/Lymphatic: No symptoms reported Neurological/Psychological: See HPI Physical Exam - Vital signs Vitals: Temp Pulse Resp BP Pulse Ox 98.2 F 74 16 123/71 98 04/17/17 13:13 04/17/17 13:13 04/17/17 13:13 04/17/17 13:13 04/17/17 13:13 Notes: Physical exam: GENERAL: 41-year-old female, alert and oriented 3, no acute distress HEAD: Atraumatic, normocephalic. EYES: Pupils equal round and reactive to light, extraocular movements intact, sclera anicteric, conjunctiva are normal. ENT: TMs normal, nares patent, oropharynx clear without exudates. Moist mucous membranes. NECK: Normal range of motion, supple without obvious mass or JVD. Back: No cervical spine tenderness, no thoracic spine tenderness no lumbar tenderness LUNGS: Breath sounds clear to auscultation bilaterally and equal. No wheezes rales or rhonchi. HEART: Regular rate and rhythm without murmurs, rubs or gallops. ABDOMEN: Soft, normoactive bowel sounds. No tenderness to palpation. No guarding, no rebound. No masses appreciated. EXTREMITIES: Normal range of motion, no pitting or edema. No clubbing or cyanosis. NEUROLOGICAL: Cranial nerves II through XII grossly intact. Pupils equally round and reactive to light, normal speech, moving all extremities. Cerebellar (finger to nose) good, motor symmetrical, sensory: Patient has subjective numbness to the upper extremities (there is some sensation, she states that it feels different than the lower extremities). I had the patient ambulate up and down triage: She did well. PSYCH: Normal mood, normal affect. SKIN: Warm, Dry, normal turgor, no rashes or lesions noted. Course - Re-evaluation Re-evalutation: 04/17/17 16:43 At the time of discharge, I have instructed the patient at the bedside with regards to return precautions and follow-up recommendations. The opportunity for questions was given. The patient has verbalized understanding of these instructions and the need for follow-up. - Vital Signs Vital signs: Temp Pulse Resp BP Pulse Ox 98.0 F 68 16 104/64 99 04/17/17 16:43 04/17/17 16:43 04/17/17 16:43 04/17/17 16:43 04/17/17 16:43 - Laboratory Result Diagrams: 04/17/17 15:20 04/17/17 15:20 Laboratory results interpreted by me: 04/17/17 15:20 WBC 15.5 H MCV 78 L MCH 25.5 L RDW 15.6 H Absolute Neutrophils 9.8 H - Diagnostic Test Radiology reviewed: Image reviewed, Reports reviewed - CT of the head shows no acute intracranial process. Chest x-ray is clear Doctor's Discharge - Discharge Clinical Impression: Neuropathy Condition: Stable Disposition: HOME, SELF-CARE Additional Instructions: Note: As we discussed, the CT of the head look good. Your labs were normal also. The white count was somewhat elevated (15 K) but you have been worked up for this in the past. Recommendations: Follow-up with Dr. Stone. I recommend you follow-up with a neurologist. I would get a referral for this. I put the number of Dr. Feng set on the chart. Take it easy over the next few days, drink plenty of fluids, continue current medicines. Return to the emergency room for any concerns that you are getting worse, any motor weakness, worsening numbness. Referrals: LIZBETH FENG MD [ACTIVE STAFF] - Follow up as needed (This is the number for the neurologist)
--- NOTE | 2017-04-17 15:37 | RADIOLOGY REPORT (SQ) ---
EXAM DESCRIPTION: CT HEAD WITHOUT COMPLETED DATE/TIME: 04/17/2017 3:26 pm REASON FOR STUDY: numbness COMPARISON: 02/22/2011 TECHNIQUE: Axial images acquired through the brain without intravenous contrast. Images reviewed wi th bone, brain and subdural windows. Images stored on PACS. All CT scanners at this facility use dose modulation, iterative reconstruction, and/or weight based d osing when appropriate to reduce radiation dose to as low as reasonably achievable (ALARA). [facility]: Dose Right [facility]: CareDose [facility]: Dose Right [facility]: Teradose 4D [facility]: AFFiRiS RADIATION DOSE: CT Rad equipment meets quality standard of care and radiation dose reduction techniq ues were employed. CTDIvol: 64.6 mGy. DLP: 1034 mGy-cm. mGy. LIMITATIONS: None. FINDINGS: VENTRICLES: Normal size and contour. CEREBRUM: No masses. No hemorrhage. No midline shift. No evidence for acute infarction. Normal gra y/white matter differentiation. No areas of low density in the white matter. CEREBELLUM: No masses. No hemorrhage. No alteration of density. No evidence for acute infarction. EXTRAAXIAL SPACES: No fluid collections. No masses. ORBITS AND GLOBE: No intra- or extraconal masses. Normal contour of globe without masses. CALVARIUM: No fracture. PARANASAL SINUSES: No fluid or mucosal thickening. SOFT TISSUES: No mass or hematoma. OTHER: No other significant finding. IMPRESSION: NORMAL BRAIN CT WITHOUT CONTRAST. EVIDENCE OF ACUTE STROKE: NO. COMMENT: Quality ID # [id number]: Final reports with documentation of one or more dose reduction techniques (e.g., Automated exposure control, adjustment of the mA and/or kV according to patient size, use of iterative reconstruction technique) TECHNICAL DOCUMENTATION: JOB ID: [id number] [employer]- All Rights Reserved
[2017-04-17 15:38] LABS: ABSOLUTE EOSINOPHILS # (AUTO) 0.3 10^3/uL (0.0-0.6); ABSOLUTE LYMPHOCYTES (AUTO) 4.5 10^3/uL (0.5-4.7); ABSOLUTE MONOCYTES (AUTO) 0.8 10^3/uL (0.1-1.4); ABSOLUTE NEUT (AUTO) 9.8 10^3/uL (1.7-8.2); BASOPHILS % (AUTO) 0.2 % (0-2); HEMATOCRIT 39.6 % (36.0-47.0); LYMPHOCYTES % (AUTO) 29.3 % (13-45); MEAN CORPUSCULAR HEMOGLOBIN 25.5 pg (27.0-33.4); MEAN CORPUSCULAR HGB CONC 32.8 g/dL (32.0-36.0); MEAN CORPUSCULAR VOLUME 78 fl (80-97); PLATELET COUNT 316 10^3/uL (150-450); RED BLOOD COUNT 5.08 10^6/uL (3.72-5.28); RED CELL DISTRIBUTION WIDTH 15.6 % (11.5-14.0); SEGMENTED NEUTROPHILS % (AUTO) 63.5 % (42-78); TOTAL CELLS COUNTED % (AUTO) 100 %; WHITE BLOOD COUNT 15.5 10^3/uL (4.0-10.5)
--- NOTE | 2017-04-17 15:39 | RADIOLOGY REPORT (SQ) ---
EXAM DESCRIPTION: CHEST PA/LAT COMPLETED DATE/TIME: 04/17/2017 3:27 pm REASON FOR STUDY: right shoulder pain COMPARISON: 12/17/2013. EXAM PARAMETERS: NUMBER OF VIEWS: two views TECHNIQUE: Digital Frontal and Lateral radiographic views of the chest acquired. RADIATION DOSE: NA LIMITATIONS: none FINDINGS: LUNGS AND PLEURA: No opacities, masses or pneumothorax. No pleural effusion. MEDIASTINUM AND HILAR STRUCTURES: No masses or contour abnormalities. HEART AND VASCULAR STRUCTURES: Heart normal size. No evidence for failure. BONES: No acute findings. HARDWARE: None in the chest. OTHER: No other significant finding. IMPRESSION: NO SIGNIFICANT RADIOGRAPHIC FINDING IN THE CHEST. TECHNICAL DOCUMENTATION: JOB ID: [id number] [employer]- All Rights Reserved
[2017-04-17 15:41] LABS: APPEARANCE,URINE SLIGHTLY-CLOUDY; BILIRUBIN,URINE NEGATIVE (NEGATIVE); COLOR,URINE YELLOW; GLUCOSE, URINE NEGATIVE (NEGATIVE); KETONES,URINE NEGATIVE (NEGATIVE); LEUKOCYTE ESTERASE,URINE NEGATIVE (NEGATIVE); NITRITE,URINE NEGATIVE (NEGATIVE); PROTEIN,URINE NEGATIVE (NEGATIVE); URINE SPECIFIC GRAVITY 1.011; UROBILINOGEN,URINE NEGATIVE mg/dL (<2.0)
[2017-04-17 15:55] LABS: ALANINE AMINOTRANSFERASE 29 U/L (9-52); ALBUMIN 4.1 g/dL (3.5-5.0); ALKALINE PHOSPHATASE 72 U/L (38-126); ANION GAP 8 (5-19); ASPARTATE AMINO TRANSFERASE 21 U/L (14-36); BILIRUBIN,DIRECT 0.2 mg/dL (0.0-0.4); BILIRUBIN,TOTAL 0.6 mg/dL (0.2-1.3); BLOOD UREA NITROGEN 9 mg/dL (7-20); CALCIUM 10.1 mg/dL (8.4-10.2); CARBON DIOXIDE 26 mmol/L (22-30); CHLORIDE 106 mmol/L (98-107); GLUCOSE 84 mg/dL (75-110); LITHIUM 0.9 mEq/L (0.6-1.2); POTASSIUM 4.3 mmol/L (3.6-5.0); SODIUM 139.5 mmol/L (137-145); TOTAL PROTEIN 6.4 g/dL (6.3-8.2)
[2017-04-17 16:47] VITALS: BP 104/64
== END 2017-04-17 16:45 | disposition home or self-care (01) ==
LOC: ER 13:01
DX: G62.9 Polyneuropathy, unspecified (principal); M25.511 Pain in right shoulder; J44.9 Chronic obstructive pulmonary disease, unspecified; Z88.6 Allergy status to analgesic agent; Z91.013 Allergy to seafood
CPT/HCPCS: 36415; 70450; 71046; 80053; 80178; 81001; 85025; 99284

== ENCOUNTER 2017-05-10 10:48 | Day surgery (SDC) | payer MEDICARE, MEDICAID ==
[~2017-05-10 10:48] MED LIST: LACTATED RINGERS 1000 ML IV PRN; LIDOCAINE 0.5% INJ-PF (5 MG/ML) 50 ML SDV SUBCUT PRN; SCOPOLAMINE HYDROBROMIDE 1.5 MG PATCH.TD72 TD PRN
[2017-05-10] MEDS ORDERED: FENTANYL CITRATE INJ/PF 100 MCG/2 ML AMPUL ONE (13:00)
[2017-05-10] MEDS ORDERED: ACETAMINOPHEN 100 ML IV ONE (13:00)
[2017-05-10] MEDS ORDERED: PROPOFOL INJ 200 MG/20 ML VIAL IV ONE (13:00)
[2017-05-10] MEDS ORDERED: EPHEDRINE SULFATE INJ 50 MG/1 ML AMPULE ONE (13:00)
[2017-05-10] MEDS ORDERED: MIDAZOLAM 2 MG/2 ML INJ ONE (13:00)
[2017-05-10] MEDS ORDERED: LIDOCAINE 2%/EPINEPHRINE INJ 1.7 ML CARTRIDGE ONE (13:38)
[2017-05-10] MEDS ORDERED: OXYCODONE-ACETAMINOPHEN 5-325 MG TABLET PO PRN (14:53)
[2017-05-10] MEDS ORDERED: OXYCODONE-ACETAMINOPHEN 5-325 MG TABLET ONE (15:08)
[2017-05-10] MEDS ORDERED: LIDOCAINE 2% INJ-PF (20 MG/ML) 2 ML AMPUL ONE (15:13)
[2017-05-10] MEDS ORDERED: ONDANSETRON HCL INJ/PF 4 MG/2 ML SDV ONE (15:13)
[2017-05-10] MEDS ORDERED: GLYCOPYRROLATE INJ 0.4 MG/2 ML VIAL ONE (15:13)
[2017-05-10] MEDS ORDERED: METOCLOPRAMIDE HCL INJ/PF 10 MG/2 ML SDV ONE (15:13)
[2017-05-10] MEDS ORDERED: DEXAMETHASONE SOD PHOSPHATE INJ 4 MG/1 ML VIAL ONE (15:13)
[2017-05-10] MEDS ORDERED: PHENYLEPHRINE HCL INJ/PF 10 MG/1 ML SDV ONE (15:13)
[2017-05-10] MEDS ORDERED: SUCCINYLCHOLINE CHLORIDE INJ 200 MG/10 ML VIAL ONE (15:13)
--- NOTE | 2017-05-10 15:16 | Operative Report ---
Operative Report DATE OF SURGERY: 05/10/17 PREOPERATIVE DIAGNOSIS: Dental caries POSTOPERATIVE DIAGNOSIS: Dental caries OPERATION: Surgical removal of teeth numbers 6, 7, 8, 9, 10, 11, 13, 28, 29, 31 and 32 with alveoloplasties of the upper right, upper left and lower right quadrants SURGEON: JIM OQUENDO ANESTHESIA: GA TISSUE REMOVED OR ALTERED: Teeth and bone which were discarded COMPLICATIONS: None ESTIMATED BLOOD LOSS: Minimal INTRAOPERATIVE FINDINGS: Carious and nonrestorable teeth PROCEDURE: The patient was brought into operating room #1 and placed on the operating room table in supine position. General anesthesia was induced via a peripheral IV and continued utilizing nasoendotracheal intubation through the left nares. The patient was then prepped and draped in the usual fashion for an intraoral procedure. A total of 3 carpules of 2% Lidocaine with 1:100K Epi and 1 carpule of 0.5% Marcaine with 1:200K Epi were delivered to the planned surgical sites via both infiltration and nerve block. The oral cavity and oropharynx were suctioned and a moistened oropharyngeal throat pack was placed. A bite block was used throughout the procedure. Full thickness mucoperisteal flaps were elevated. Ostectomy was completed as needed. Teeth were delivered with elevators and forceps. Alveoloplasties were completed using rongeurs and bone files. All sites debrided and irrigated. No sinus exposure noted. Mandible intact post op. HOLLY not visualized. Wounds reapproximated and sutured with 4-0 chromic gut. The oral cavity was suctioned and found to be free of debris. The throat pack was removed. The oropharynx was suctioned. Gauze packs were placed bilaterally to aid in continued hemastasis. The patient was awakened from general anesthesia, extubated in the operating room and taken to recovery in spontaneous breathing fashion.
[2017-05-10 17:34] VITALS: BP 105/68
== END 2017-05-10 16:15 | disposition home or self-care (01) ==
LOC: OROUT 10:48
PROVIDERS: ATTEND Dentist Oral and Maxillofacial Surgery
PROC: 0CDWXZ1 Extraction of Upper Tooth, Multiple, External Approach (ICD-10-PCS; 2017-05-10)
PROC: 0CDXXZ1 Extraction of Lower Tooth, Multiple, External Approach (ICD-10-PCS; principal; 2017-05-10 13:30)
DX: K02.9 Dental caries, unspecified (principal)
CPT/HCPCS: 41899; J2250; J3490 ×2; J1100; J3010; J2765; A9270; J2370; J0330; J2405; J2704; J0131; 170

== ENCOUNTER → 2017-12-15 | Outpatient (CLI) | payer MEDICARE, MEDICAID | LOC: OD 16:05 | PROVIDERS: ATTEND Nurse Practitioner Acute Care | DX: R10.9 Unspecified abdominal pain (principal); R30.0 Dysuria | CPT/HCPCS: 87086; 87088; 87186 ==

== ENCOUNTER → 2018-01-12 | Outpatient (CLI) | payer MEDICARE, MEDICAID ==
[2018-01-12 11:16] LABS: ABSOLUTE EOSINOPHILS # (AUTO) 0.2 10^3/uL (0.0-0.6); ABSOLUTE LYMPHOCYTES (AUTO) 2.1 10^3/uL (0.5-4.7); ABSOLUTE MONOCYTES (AUTO) 0.5 10^3/uL (0.1-1.4); ABSOLUTE NEUT (AUTO) 4.6 10^3/uL (1.7-8.2); BASOPHILS % (AUTO) 0.5 % (0-2); HEMOGLOBIN 13.6 g/dL (12.0-15.5); LYMPHOCYTES % (AUTO) 27.4 % (13-45); MEAN CORPUSCULAR HEMOGLOBIN 27.4 pg (27.0-33.4); MEAN CORPUSCULAR VOLUME 81 fl (80-97); MONOCYTES % (AUTO) 7.3 % (3-13); PLATELET COUNT 275 10^3/uL (150-450); RED BLOOD COUNT 4.96 10^6/uL (3.72-5.28); RED CELL DISTRIBUTION WIDTH 18.2 % (11.5-14.0); SEGMENTED NEUTROPHILS % (AUTO) 61.8 % (42-78); TOTAL CELLS COUNTED % (AUTO) 100 %; WHITE BLOOD COUNT 7.5 10^3/uL (4.0-10.5)
[2018-01-12 11:22] LABS: ALANINE AMINOTRANSFERASE 21 U/L (9-52); ALBUMIN 3.9 g/dL (3.5-5.0); ALKALINE PHOSPHATASE 84 U/L (38-126); ANION GAP 9 (5-19); ASPARTATE AMINO TRANSFERASE 23 U/L (14-36); BILIRUBIN,DIRECT 0.3 mg/dL (0.0-0.4); BILIRUBIN,TOTAL 0.5 mg/dL (0.2-1.3); BLOOD UREA NITROGEN 10 mg/dL (7-20); CALCIUM 9.1 mg/dL (8.4-10.2); CARBON DIOXIDE 27 mmol/L (22-30); CHLORIDE 108 mmol/L (98-107); CHOLESTEROL 115.74 mg/dL (0-200); GLUCOSE 91 mg/dL (75-110); POTASSIUM 4.1 mmol/L (3.6-5.0); SODIUM 143.7 mmol/L (137-145); TOTAL PROTEIN 6.4 g/dL (6.3-8.2); TRIGLYCERIDES 194 mg/dL (<150)
[2018-01-12 11:24] LABS: VLDL CHOLESTEROL 38.8 mg/dL (10-31)
[2018-01-12 11:38] LABS: DIRECT LDL 53 mg/dL (<100)
[2018-01-12 11:59] LABS: OVALOCYTES 1+; PLATELET COMMENT ADEQUATE; POIKILOCYTOSIS 1+
== END ==
LOC: OD 09:38
PROVIDERS: ATTEND Physician Assistant
DX: F43.12 Post-traumatic stress disorder, chronic (principal); Z79.899 Other long term (current) drug therapy
CPT/HCPCS: 36415; 80053; 80061; 80156; 83036; 84436; 84443; 85025

== ENCOUNTER 2018-02-02 11:11 | Emergency (ER) | payer MEDICARE, MEDICAID ==
[2018-02-02] MEDS ORDERED: PREDNISONE 20 MG TABLET PO ONE (12:44)
--- NOTE | 2018-02-02 12:46 | ER Document Report ---
ED Respiratory Problem - General Chief Complaint: Cough Stated Complaint: NAUSEA Time Seen by Provider: 02/02/18 12:37 Information source: Patient Notes: History of Present Illness Chief Complaint: [cough] Cough quality= [dry], [without] sputum [No] hemoptysis [ ] History obtained from [patient] 32 years old female with psychiatric history as well as smoking presents today with one-month history of coughing and wheezing. No fever chills or other constitutional symptoms. Largely nonproductive cough occasionally produces. Symptoms began: [past few days] Onset: [gradual] Timing: [constant, lasts hours, persists] Intensity: [moderate] Location: [respiratory tract] Radiation: [none] Migration: [none] Aggravating factors: [none] Relieving factors: [none] Review of Systems : All other systems negative as reviewed. CONSTITUTIONAL No Fever. EYES No eye pain. ENT No sore throat CARDIOVASCULAR No chest pain. RESPIRATORY No SOB, No wheezing, No orthopnea, No pedal edema. GI No abdominal pain, no vomiting, no diarrhea. GENITOURINARY No dysuria. SKIN No rash. NEUROLOGIC No headache. MUSCULOSKELETAL No back pain, No calf pain, No calf swelling Physical Exam CONSTITUTIONAL Vital signs reviewed, Patient has normal respiratory rate, Well appearing, Patient appears comfortable, normal stature. HEAD Atraumatic, Normocephalic. EYES Eyes are normal to inspection. ENT Ears normal to inspection, Nose examination normal. NECK No jugular venous distention. RESPIRATORY CHEST Breath sounds bilaterally scattered expiratory wheezes heard no rales, No respiratory distress. CARDIOVASCULAR RRR, No murmurs, Normal S1 S2, No rub, No gallop. ABDOMEN Abdomen is nontender, No masses, Bowel sounds normal, No distension, No peritoneal signs. BACK Normal inspection. UPPER EXTREMITY Inspection normal. LOWER EXTREMITY Inspection normal. NEURO No facial droop, normal speech. SKIN Skin is warm, Skin is dry, Skin is normal color. PSYCHIATRIC Normal affect. TRAVEL OUTSIDE OF THE [place] IN LAST 30 DAYS: No - HPI Notes: Dictated - Related Data Allergies/Adverse Reactions: aspirin [Aspirin] Allergy (Severe, Verified 02/02/18 11:35) THROAT SWELLS, HIVES iodine [Iodine] Allergy (Severe, Verified 02/02/18 11:35) Generalized Itching Past Medical History - Social History Smoking Status: Current Every Day Smoker - No Chew tobacco use (# tins/day): No Smoking Education Provided: Yes Frequency of alcohol use: Rare Drug Abuse: Marijuana Family History: Reviewed & Not Pertinent - Past Medical History Cardiac Medical History: Reports: Hx Hypercholesterolemia Denies: Hx Coronary Artery Disease, Hx Heart Attack, Hx Hypertension Pulmonary Medical History: Reports: Hx Asthma - MILD, Hx Bronchitis Denies: Hx COPD, Hx Pneumonia Neurological Medical History: Reports: Hx Migraine. Denies: Hx Cerebrovascular Accident, Hx Seizures Renal/ Medical History: Reports: Hx Kidney Stones. Denies: Hx Peritoneal Dialysis GI Medical History: Reports: Hx Gastroesophageal Reflux Disease, Hx Irritable Bowel Musculoskeletal Medical History: Denies Hx Arthritis, Reports Hx Musculoskeletal Deformity, Reports Hx Musculoskeletal Trauma Psychiatric Medical History: Reports: Hx Anxiety, Hx Attention Deficit Hyperactivity Disorder, Hx Bipolar Disorder, Hx Depression Past Surgical History: Reports: Hx Abdominal Surgery - UMBILICAL HERNIA, Hx Section, Hx Cholecystectomy, Hx Herniorrhaphy - Umbilical hernia repair , Hx Hysterectomy, Hx Orthopedic Surgery - left shoulder(slap shoulder), Hx Tonsillectomy, Hx Umbilical Hernia, Hx Urinary Tract Surgery - kidney stent 11/22. Denies: Hx Mastectomy, Hx Open Heart Surgery - Immunizations Immunizations up to date: Yes Hx Diphtheria, Pertussis, Tetanus Vaccination: Yes Review of Systems - Review of Systems Notes: Dictated Physical Exam - Notes Notes: Dictated Discharge - Discharge Clinical Impression: Smoking Asthmatic bronchitis Qualifiers: Asthma severity: moderate Asthma persistence: persistent Asthma complication type: with acute exacerbation Qualified Code(s): J45.41 - Moderate persistent asthma with (acute) exacerbation Condition: Fair Disposition: HOME, SELF-CARE Instructions: Bronchitis With Bronchospasm (Wheezing) ([facility]), Stop Smoking ([facility]) Prescriptions: Albuterol Sulfate [Proair Hfa Inhalation Aerosol 8.5 gm Mdi] 1 puff IH Q4 PRN # 1 mdi PRN Reason: Fluticasone Propionate [Flovent Diskus 250 mcg] 1 puff IH BID #1 diskus Guaifenesin/Codeine Phos [Robitussin-AC Syrup 59 ml] 5 ml PO QIDP PRN #90 ml PRN Reason: Prednisone 10 mg PO ASDIR PRN #1 tab.ds.pk PRN Reason: Referrals: INDIGO SHAW PA-C [Primary Care Provider] - Follow up as needed
--- NOTE | 2018-02-02 12:54 | EKG REPORT ---
SEVERITY:- BORDERLINE ECG - SINUS RHYTHM BORDERLINE T ABNORMALITIES, ANTERIOR LEADS : Confirmed by: Chris Vasquez MD 02-Feb-2018 12:53:49
== END 2018-02-02 12:51 | disposition home or self-care (01) ==
LOC: ER 11:11
DX: J45.41 Moderate persistent asthma with (acute) exacerbation (principal); R11.0 Nausea; F17.200 Nicotine dependence, unspecified, uncomplicated; E78.00 Pure hypercholesterolemia, unspecified; Z88.6 Allergy status to analgesic agent; Z87.442 Personal history of urinary calculi; Z90.49 Acquired absence of other specified parts of digestive tract
CPT/HCPCS: 93005; 99283; 93010; A9270; J7512

== ENCOUNTER → 2018-03-17 | Outpatient (CLI) | payer MEDICARE, MEDICAID ==
[2018-03-17 09:15] LABS: ABSOLUTE EOSINOPHILS # (AUTO) 0.1 10^3/uL (0.0-0.6); ABSOLUTE LYMPHOCYTES (AUTO) 2.5 10^3/uL (0.5-4.7); ABSOLUTE MONOCYTES (AUTO) 0.7 10^3/uL (0.1-1.4); ABSOLUTE NEUT (AUTO) 9.8 10^3/uL (1.7-8.2); BASOPHILS % (AUTO) 0.3 % (0-2); EOSINOPHILS % (AUTO) 1.1 % (0-6); HEMATOCRIT 39.1 % (36.0-47.0); HEMOGLOBIN 12.9 g/dL (12.0-15.5); LYMPHOCYTES % (AUTO) 19.2 % (13-45); MEAN CORPUSCULAR HEMOGLOBIN 27.3 pg (27.0-33.4); MEAN CORPUSCULAR HGB CONC 32.9 g/dL (32.0-36.0); MEAN CORPUSCULAR VOLUME 83 fl (80-97); MONOCYTES % (AUTO) 5.2 % (3-13); PLATELET COUNT 275 10^3/uL (150-450); RED BLOOD COUNT 4.71 10^6/uL (3.72-5.28); RED CELL DISTRIBUTION WIDTH 13.4 % (11.5-14.0); SEGMENTED NEUTROPHILS % (AUTO) 74.2 % (42-78); TOTAL CELLS COUNTED % (AUTO) 100 %; WHITE BLOOD COUNT 13.2 10^3/uL (4.0-10.5)
[2018-03-17 09:39] LABS: ALANINE AMINOTRANSFERASE 7 U/L (9-52); ALBUMIN 3.7 g/dL (3.5-5.0); ALKALINE PHOSPHATASE 81 U/L (38-126); ANION GAP 10 (5-19); ASPARTATE AMINO TRANSFERASE 16 U/L (14-36); BILIRUBIN,DIRECT 0.2 mg/dL (0.0-0.4); BILIRUBIN,TOTAL 0.2 mg/dL (0.2-1.3); BLOOD UREA NITROGEN 18 mg/dL (7-20); CALCIUM 9.4 mg/dL (8.4-10.2); CARBON DIOXIDE 25 mmol/L (22-30); CHLORIDE 107 mmol/L (98-107); GLUCOSE 115 mg/dL (75-110); POTASSIUM 4.4 mmol/L (3.6-5.0); SODIUM 141.8 mmol/L (137-145); TOTAL PROTEIN 6.1 g/dL (6.3-8.2)
== END ==
LOC: OD 08:21
PROVIDERS: ATTEND Physician Assistant
DX: F31.4 Bipolar disorder, current episode depressed, severe, without psychotic features (principal)
CPT/HCPCS: 36415; 80053; 80156; 85025

== ENCOUNTER 2018-04-08 17:32 | Emergency (ER) | payer MEDICARE, MEDICAID ==
[2018-04-08] MEDS ORDERED: ONDANSETRON 4 MG TAB.RAPDIS PO ONE (17:59)
--- NOTE | 2018-04-08 18:00 | ER Document Report ---
ED Medical Screen (RME) - General Chief Complaint: Abdominal Pain Stated Complaint: ABDOMINAL PAIN, VOMITING, RECTAL BLEEDING Time Seen by Provider: 04/08/18 17:55 Notes: 32-year-old female patient with bipolar disorder reports onset this morning of abdominal pain with vomiting and rectal bleeding. I have greeted and performed a rapid initial assessment of this patient. A comprehensive ED assessment and evaluation of the patient, analysis of test results and completion of the medical decision making process will be conducted by additional ED providers. TRAVEL OUTSIDE OF THE [place] IN LAST 30 DAYS: No - Related Data Allergies/Adverse Reactions: aspirin [Aspirin] Allergy (Severe, Verified 04/08/18 17:58) THROAT SWELLS, HIVES iodine [Iodine] Allergy (Severe, Verified 04/08/18 17:58) Generalized Itching Past Medical History - Social History Chew tobacco use (# tins/day): No Frequency of alcohol use: None Drug Abuse: Marijuana Family history: None - Past Medical History Cardiac Medical History: Reports: Hx Hypercholesterolemia Denies: Hx Coronary Artery Disease, Hx Heart Attack, Hx Hypertension Pulmonary Medical History: Reports: Hx Asthma - MILD, Hx Bronchitis Denies: Hx COPD, Hx Pneumonia Neurological Medical History: Reports: Hx Migraine. Denies: Hx Cerebrovascular Accident, Hx Seizures Renal/ Medical History: Reports: Hx Kidney Stones. Denies: Hx Peritoneal Dialysis GI Medical History: Reports: Hx Gastroesophageal Reflux Disease, Hx Irritable Bowel Musculoskeltal Medical History: Denies Hx Arthritis, Reports Hx Musculoskeletal Deformity, Reports Hx Musculoskeletal Trauma Psychiatric Medical History: Reports: Hx Anxiety, Hx Attention Deficit Hyperactivity Disorder, Hx Bipolar Disorder, Hx Depression Past Surgical History: Reports: Hx Abdominal Surgery - UMBILICAL HERNIA, Hx Section, Hx Cholecystectomy, Hx Herniorrhaphy - Umbilical hernia repair, Hx Hysterectomy, Hx Orthopedic Surgery - left shoulder(slap shoulder), Hx Tonsillectomy, Hx Umbilical Hernia, Hx Urinary Tract Surgery - kidney stent 11/22/16. Denies: Hx Mastectomy, Hx Open Heart Surgery - Immunizations Immunizations up to date: Yes Hx Diphtheria, Pertussis, Tetanus Vaccination: Yes History of Influenza Vaccine for 12/2016 - 05/2017 Season: Yes Influenza Administration Date for 12/2016 - 05/2017 Season: 03/28/17 Physical Exam - Vital signs Vitals: Temp Pulse Resp BP Pulse Ox 98.5 F 65 18 116/79 98 04/08/18 17:42 04/08/18 17:42 04/08/18 17:42 04/08/18 17:42 04/08/18 17:42 Course - Vital Signs Vital signs: Temp Pulse Resp BP Pulse Ox 98.5 F 65 18 116/79 98 04/08/18 17:42 04/08/18 17:42 04/08/18 17:42 04/08/18 17:42 04/08/18 17:42 Doctor's Discharge - Discharge Referrals: INDIGO SHAW PA-C [Primary Care Provider] - Follow up as needed
[2018-04-08 18:27] LABS: ABSOLUTE LYMPHOCYTES (AUTO) 1.5 10^3/uL (0.5-4.7); ABSOLUTE MONOCYTES (AUTO) 0.3 10^3/uL (0.1-1.4); ABSOLUTE NEUT (AUTO) 13.8 10^3/uL (1.7-8.2); BASOPHILS % (AUTO) 0.2 % (0-2); HEMATOCRIT 41.9 % (36.0-47.0); HEMOGLOBIN 14.4 g/dL (12.0-15.5); LYMPHOCYTES % (AUTO) 9.3 % (13-45); MEAN CORPUSCULAR HEMOGLOBIN 28.2 pg (27.0-33.4); MEAN CORPUSCULAR HGB CONC 34.3 g/dL (32.0-36.0); MEAN CORPUSCULAR VOLUME 82 fl (80-97); MONOCYTES % (AUTO) 1.9 % (3-13); PLATELET COUNT 300 10^3/uL (150-450); RED BLOOD COUNT 5.09 10^6/uL (3.72-5.28); RED CELL DISTRIBUTION WIDTH 14.6 % (11.5-14.0); SEGMENTED NEUTROPHILS % (AUTO) 88.6 % (42-78); TOTAL CELLS COUNTED % (AUTO) 100 %; WHITE BLOOD COUNT 15.6 10^3/uL (4.0-10.5)
[2018-04-08 18:29] LABS: AMORPHOUS SEDIMENT,URINE TRACE /HPF; APPEARANCE,URINE TURBID; BILIRUBIN,URINE NEGATIVE (NEGATIVE); COLOR,URINE AMBER; GLUCOSE, URINE NEGATIVE (NEGATIVE); KETONES,URINE NEGATIVE (NEGATIVE); LEUKOCYTE ESTERASE,URINE NEGATIVE (NEGATIVE); NITRITE,URINE NEGATIVE (NEGATIVE); PROTEIN,URINE 100 mg/dL (NEGATIVE); UROBILINOGEN,URINE NEGATIVE mg/dL (<2.0)
[2018-04-08 18:40] LABS: ALANINE AMINOTRANSFERASE 24 U/L (9-52); ALBUMIN 4.7 g/dL (3.5-5.0); ALKALINE PHOSPHATASE 99 U/L (38-126); ANION GAP 11 (5-19); ASPARTATE AMINO TRANSFERASE 15 U/L (14-36); BILIRUBIN,DIRECT 0.2 mg/dL (0.0-0.4); BILIRUBIN,TOTAL 0.3 mg/dL (0.2-1.3); BLOOD UREA NITROGEN 23 mg/dL (7-20); CALCIUM 9.8 mg/dL (8.4-10.2); CARBON DIOXIDE 27 mmol/L (22-30); CHLORIDE 101 mmol/L (98-107); GLUCOSE 129 mg/dL (75-110); POTASSIUM 4.9 mmol/L (3.6-5.0); SODIUM 138.5 mmol/L (137-145); TOTAL PROTEIN 7.2 g/dL (6.3-8.2)
[2018-04-08] MEDS ORDERED: NORMAL SALINE 1000 ML 1,000 ML IV ONE ×2 (19:16→19:17)
[2018-04-08] MEDS ORDERED: PROMETHAZINE HCL INJ 25 MG/1 ML VIAL IM ONE (19:17)
[2018-04-08] MEDS ORDERED: DIPHENHYDRAMINE HCL 50 MG/ML VIAL IV ONE (19:17)
--- NOTE | 2018-04-08 19:20 | ER Document Report ---
ED GI/ - General Chief Complaint: Abdominal Pain Stated Complaint: ABDOMINAL PAIN, VOMITING, RECTAL BLEEDING Time Seen by Provider: 04/08/18 17:55 Notes: Patient is a 32-year-old female that comes to the emergency department for chief complaint of vomiting and diarrhea that started this morning. She states today she has had approximately 20 episodes of vomiting and the same number of stools, after several stools she started to note some trace blood in the stool. She denies fever, she reports some chills. She recently completed an antibiotic for UTI, cannot recall the name of the antibiotic. She denies any recent travel, suspicious foods. No obvious sick contacts. Denies any particular abdominal pain. Past medical history of umbilical hernia repair, cholecystectomy, hysterectomy, kidney stones, irritable bowel with diarrhea predominance, bipolar disorder. TRAVEL OUTSIDE OF THE [place] IN LAST 30 DAYS: No - Related Data Allergies/Adverse Reactions: aspirin [Aspirin] Allergy (Severe, Verified 04/08/18 17:58) THROAT SWELLS, HIVES iodine [Iodine] Allergy (Severe, Verified 04/08/18 17:58) Generalized Itching Past Medical History - General Information source: Patient - Social History Smoking Status: Current Every Day Smoker Chew tobacco use (# tins/day): No Frequency of alcohol use: None Drug Abuse: Marijuana Lives with: Friend Family History: Reviewed & Not Pertinent Patient has suicidal ideation: No Patient has homicidal ideation: No - Past Medical History Cardiac Medical History: Reports: Hx Hypercholesterolemia Denies: Hx Coronary Artery Disease, Hx Heart Attack, Hx Hypertension Pulmonary Medical History: Reports: Hx Asthma - MILD, Hx Bronchitis Denies: Hx COPD, Hx Pneumonia Neurological Medical History: Reports: Hx Migraine. Denies: Hx Cerebrovascular Accident, Hx Seizures Renal/ Medical History: Reports: Hx Kidney Stones. Denies: Hx Peritoneal Dialysis GI Medical History: Reports: Hx Gastroesophageal Reflux Disease, Hx Irritable Bowel Musculoskeletal Medical History: Denies Hx Arthritis, Reports Hx Musculoskeletal Deformity, Reports Hx Musculoskeletal Trauma Psychiatric Medical History: Reports: Hx Anxiety, Hx Attention Deficit Hyperactivity Disorder, Hx Bipolar Disorder, Hx Depression Past Surgical History: Reports: Hx Abdominal Surgery - UMBILICAL HERNIA, Hx Section, Hx Cholecystectomy, Hx Herniorrhaphy - Umbilical hernia repair, Hx Hysterectomy, Hx Orthopedic Surgery - left shoulder(slap shoulder), Hx Tonsillectomy, Hx Umbilical Hernia, Hx Urinary Tract Surgery - kidney stent 11/22/16. Denies: Hx Mastectomy, Hx Open Heart Surgery - Immunizations Immunizations up to date: Yes Hx Diphtheria, Pertussis, Tetanus Vaccination: Yes Review of Systems - Review of Systems Constitutional: No symptoms reported EENT: No symptoms reported Cardiovascular: No symptoms reported Respiratory: No symptoms reported Gastrointestinal: See HPI Genitourinary: No symptoms reported Female Genitourinary: No symptoms reported Musculoskeletal: No symptoms reported Skin: No symptoms reported Hematologic/Lymphatic: No symptoms reported Neurological/Psychological: No symptoms reported Physical Exam - Vital signs Vitals: Temp Pulse Resp BP Pulse Ox 98.5 F 65 18 116/79 98 04/08/18 17:42 04/08/18 17:42 04/08/18 17:42 04/08/18 17:42 04/08/18 17:42 - Notes Notes: GENERAL: Alert, interacts well. No acute distress. HEAD: Normocephalic, atraumatic. EYES: Pupils equal, round, and reactive to light. Extraocular movements intact. ENT: Oral mucosa dry, tongue midline. Oropharynx unremarkable. Airway patent. Nares patent, no nasal septal hematoma, TM's intact. NECK: Full range of motion. Supple. Trachea midline. LUNGS: Clear to auscultation bilaterally, no wheezes, rales, or rhonchi. No respiratory distress. HEART: Regular rate and rhythm. No murmur ABDOMEN: Minimal generalized tenderness. No guarding, no rigidity. Non- distended. Bowel sounds present in all 4 quadrants. GENITOURINARY: Deferred EXTREMITIES: Moves all 4 extremities spontaneously. No edema, normal radial and dorsalis pedis pulses bilaterally. No cyanosis. BACK: no cervical, thoracic, lumbar midline tenderness. No saddle anesthesia, normal distal neurovascular exam. NEUROLOGICAL: Alert and oriented x3. Normal speech. [cranial nerves II through XII grossly intact]. PSYCH: Normal affect, normal mood. SKIN: Warm, dry, normal turgor. No rashes or lesions noted. Course - Re-evaluation Re-evalutation: Patient with dry mucous membranes, soft abdomen except for mild left upper quadrant and epigastric tenderness, she does not appear to be toxic but does appear dehydrated and tired. CBC shows leukocytosis of 15,000, nonspecific given patient's reported symptoms. Chemistry unremarkable, lipase unremarkable. Urinalysis showing dehydration but not infection. Very low suspicion of acute abdomen based on patient's reported symptoms and her abdominal exam. Patient was unable to provide diarrhea for hours. Attempted p.o. challenge but she vomited. Appears to have less diarrhea than she was reporting earlier but does have persistent vomiting. Patient admits to daily cannabis abuse. I suspect patient has cyclic vomiting syndrome. I discussed this with patient. She states she just wants to feel better. Given haloperidol. Patient states that she is hoping this works so she can drink, go home, and then she states that she will stop smoking marijuana. After Haldol patient finally got vomiting. Drink fluids and states she feels much better. Requesting to go home. Discharge with return precautions. Stable at time of discharge. - Vital Signs Vital signs: Temp Pulse Resp BP Pulse Ox 98.2 F 81 17 122/69 98 04/09/18 01:42 04/09/18 01:42 04/09/18 01:42 04/09/18 01:42 04/09/18 01:42 - Laboratory Result Diagrams: 04/08/18 18:10 04/08/18 18:10 Laboratory results interpreted by me: 04/08/18 04/08/18 04/08/18 18:10 18:10 18:10 WBC 15.6 H RDW 14.6 H Seg Neutrophils % 88.6 H Lymphocytes % 9.3 L Monocytes % 1.9 L Absolute Neutrophils 13.8 H BUN 23 H Glucose 129 H Urine Protein 100 H Discharge - Discharge Clinical Impression: Dehydration Vomiting Qualifiers: Vomiting type: unspecified Vomiting Intractability: non-intractable Nausea presence: with nausea Qualified Code(s): R11.2 - Nausea with vomiting, unspecified Condition: Stable Disposition: HOME, SELF-CARE Additional Instructions: Continue to rehydrate at home. Take Phenergan for nausea if needed. Take the Pepcid for stomach upset. Start with clear fluids, progress to bland food. Resume normal diet as tolerated. I recommend that you avoid cannabis use. Your clinical presentation was consistent with cyclic vomiting syndrome, if you use this substance again in the future you may have a repeat of the symptoms you experienced today. Return if you worsen including uncontrolled vomiting, severe abdominal pain, fever, passing out, or any other concerning or worsening symptoms. Prescriptions: Famotidine [Pepcid 20 mg Tablet] 20 mg PO BID #20 tablet Promethazine HCl [Phenergan 25 mg Tablet] 25 mg PO Q6H PRN #20 tablet PRN Reason: Forms: Return to Work Referrals: INDIGO SHAW PA-C [Primary Care Provider] - Follow up as needed
[2018-04-08] MEDS ORDERED: HYDROCODONE/ACETAMINOPHEN 5-325 MG TABLET PO ONE (21:46)
[2018-04-08] MEDS ORDERED: SUCRALFATE 1 GM TABLET PO ONE (21:46)
[2018-04-08] MEDS ORDERED: PROMETHAZINE HCL 25 MG TABLET PO ONE (21:46)
[2018-04-08] MEDS ORDERED: FAMOTIDINE 20 MG TABLET PO ONE (21:47)
[2018-04-08] MEDS ORDERED: HALOPERIDOL LACTATE INJ 5 MG/1 ML VIAL IM ONE (23:36)
[2018-04-09 01:43] VITALS: BP 122/69
== END 2018-04-09 01:43 | disposition home or self-care (01) ==
LOC: ER 17:32
DX: E86.0 Dehydration (principal); R11.2 Nausea with vomiting, unspecified; R10.13 Epigastric pain; R10.12 Left upper quadrant pain; F17.200 Nicotine dependence, unspecified, uncomplicated; E78.00 Pure hypercholesterolemia, unspecified; Z87.442 Personal history of urinary calculi; Z90.710 Acquired absence of both cervix and uterus; Z88.6 Allergy status to analgesic agent
CPT/HCPCS: 99284; 96372; 96361; 96374; 36415; 85025; 80053; 81001; A9270 ×4; J1200; J1630; J2550; J7030; S0119

== ENCOUNTER 2018-04-12 12:51 | Emergency (ER) | payer MEDICARE, MEDICAID ==
--- NOTE | 2018-04-12 14:18 | ER Document Report ---
ED Medical Screen (RME) - General Chief Complaint: Abdominal Pain Stated Complaint: VOMITING, ABDOMINAL PAIN Time Seen by Provider: 04/12/18 14:02 Notes: 32-year-old female to emergency department chief complaint of vomiting and diffuse pain. States she was seen here a few days ago and diagnosed with "cyclic vomiting". Patient received therapy in the emergency department and felt much better. States that she has pain in her chest and abdomen. Has not "smoked any weed" in 1 week. TRAVEL OUTSIDE OF THE [place] IN LAST 30 DAYS: No - Related Data Allergies/Adverse Reactions: aspirin [Aspirin] Allergy (Severe, Verified 04/12/18 12:56) THROAT SWELLS, HIVES iodine [Iodine] Allergy (Severe, Verified 04/12/18 12:56) Generalized Itching Past Medical History - Social History Frequency of alcohol use: None Drug Abuse: Marijuana Family history: None - Past Medical History Cardiac Medical History: Reports: Hx Hypercholesterolemia Denies: Hx Coronary Artery Disease, Hx Heart Attack, Hx Hypertension Pulmonary Medical History: Reports: Hx Asthma - MILD, Hx Bronchitis Denies: Hx COPD, Hx Pneumonia Neurological Medical History: Reports: Hx Migraine. Denies: Hx Cerebrovascular Accident, Hx Seizures Renal/ Medical History: Reports: Hx Kidney Stones. Denies: Hx Peritoneal Dialysis GI Medical History: Reports: Hx Gastroesophageal Reflux Disease, Hx Irritable Bowel Musculoskeltal Medical History: Denies Hx Arthritis, Reports Hx Musculoskeletal Deformity, Reports Hx Musculoskeletal Trauma Psychiatric Medical History: Reports: Hx Anxiety, Hx Attention Deficit Hyperactivity Disorder, Hx Bipolar Disorder, Hx Depression Past Surgical History: Reports: Hx Abdominal Surgery - UMBILICAL HERNIA, Hx Section, Hx Cholecystectomy, Hx Herniorrhaphy - Umbilical hernia repair, Hx Hysterectomy, Hx Orthopedic Surgery - left shoulder(slap shoulder), Hx Tonsillectomy, Hx Umbilical Hernia, Hx Urinary Tract Surgery - kidney stent 11/22/16 x4. Denies: Hx Mastectomy, Hx Open Heart Surgery - Immunizations Immunizations up to date: Yes Hx Diphtheria, Pertussis, Tetanus Vaccination: Yes History of Influenza Vaccine for 12/2016 - 05/2017 Season: Yes Influenza Administration Date for 12/2016 - 05/2017 Season: 03/28/17 Physical Exam - Vital signs Vitals: Temp Pulse Resp BP Pulse Ox 98.2 F 109 H 22 H 100/71 100 04/12/18 13:06 04/12/18 13:06 04/12/18 13:06 04/12/18 13:06 04/12/18 13:06 Course - Vital Signs Vital signs: Temp Pulse Resp BP Pulse Ox 98.2 F 109 H 22 H 100/71 100 04/12/18 13:06 04/12/18 13:06 04/12/18 13:06 04/12/18 13:06 04/12/18 13:06 Doctor's Discharge - Discharge Referrals: INDIGO SHAW PA-C [Primary Care Provider] - Follow up as needed
[2018-04-12] MEDS ORDERED: HALOPERIDOL LACTATE INJ 5 MG/1 ML VIAL IM ONE ×2 (14:19→21:58)
[2018-04-12 15:56] LABS: ABSOLUTE LYMPHOCYTES (AUTO) 2.4 10^3/uL (0.5-4.7); ABSOLUTE MONOCYTES (AUTO) 0.6 10^3/uL (0.1-1.4); ABSOLUTE NEUT (AUTO) 6.3 10^3/uL (1.7-8.2); BASOPHILS % (AUTO) 0.2 % (0-2); EOSINOPHILS % (AUTO) 0.4 % (0-6); HEMATOCRIT 42.2 % (36.0-47.0); HEMOGLOBIN 14.5 g/dL (12.0-15.5); LYMPHOCYTES % (AUTO) 25.3 % (13-45); MEAN CORPUSCULAR HEMOGLOBIN 28.1 pg (27.0-33.4); MEAN CORPUSCULAR HGB CONC 34.3 g/dL (32.0-36.0); MEAN CORPUSCULAR VOLUME 82 fl (80-97); MONOCYTES % (AUTO) 6.5 % (3-13); PLATELET COUNT 323 10^3/uL (150-450); RED BLOOD COUNT 5.16 10^6/uL (3.72-5.28); SEGMENTED NEUTROPHILS % (AUTO) 67.6 % (42-78); TOTAL CELLS COUNTED % (AUTO) 100 %; WHITE BLOOD COUNT 9.3 10^3/uL (4.0-10.5)
[2018-04-12 16:03] LABS: AMORPHOUS SEDIMENT,URINE TRACE /HPF; APPEARANCE,URINE CLOUDY; BILIRUBIN,URINE NEGATIVE (NEGATIVE); COLOR,URINE AMBER; GLUCOSE, URINE NEGATIVE (NEGATIVE); KETONES,URINE 20 mg/dL (NEGATIVE); LEUKOCYTE ESTERASE,URINE NEGATIVE (NEGATIVE); NITRITE,URINE NEGATIVE (NEGATIVE); PROTEIN,URINE 100 mg/dL (NEGATIVE); URINE SPECIFIC GRAVITY 1.028; UROBILINOGEN,URINE NEGATIVE mg/dL (<2.0)
[2018-04-12 16:16] LABS: ALANINE AMINOTRANSFERASE 16 U/L (9-52); ALBUMIN 4.9 g/dL (3.5-5.0); ALKALINE PHOSPHATASE 90 U/L (38-126); ANION GAP 13 (5-19); ASPARTATE AMINO TRANSFERASE 17 U/L (14-36); BILIRUBIN,DIRECT 0.4 mg/dL (0.0-0.4); BILIRUBIN,TOTAL 0.5 mg/dL (0.2-1.3); BLOOD UREA NITROGEN 21 mg/dL (7-20); CALCIUM 9.8 mg/dL (8.4-10.2); CARBON DIOXIDE 23 mmol/L (22-30); CHLORIDE 102 mmol/L (98-107); GLUCOSE 108 mg/dL (75-110); POTASSIUM 3.9 mmol/L (3.6-5.0); SODIUM 138.4 mmol/L (137-145); TOTAL PROTEIN 7.5 g/dL (6.3-8.2); URINE AMPHETAMINES SCREEN NEGATIVE; URINE BARBITURATES SCREEN NEGATIVE; URINE BENZODIAZEPINES SCREEN UNCONFIRMED POSITIVE; URINE COCAINE SCREEN NEGATIVE; URINE MARIJUANA (THC) SCREEN UNCONFIRMED POSITIVE; URINE METHADONE SCREEN NEGATIVE; URINE PHENCYCLIDINE SCREEN NEGATIVE
--- NOTE | 2018-04-12 16:16 | RADIOLOGY REPORT (SQ) ---
EXAM DESCRIPTION: ACUTE ABDOMEN SERIES COMPLETED DATE/TIME: 04/12/2018 4:08 pm REASON FOR STUDY: abd pain, post chest pain COMPARISON: 09/09/2016. NUMBER OF VIEWS: Three views. TECHNIQUE: Frontal chest, supine abdomen and upright/decubitus abdomen radiographic images acquired. LIMITATIONS: None. FINDINGS: CHEST: Lungs clear of infiltrates. FREE AIR: None. No abnormal gas collections. BOWEL GAS PATTERN: Nonobstructive pattern. No dilated loops or air fluid levels. CALCIFICATIONS: No suspicious calcifications. HARDWARE: Surgical clips. SOFT TISSUES: No gross mass or suggestion of organomegaly. BONES: No acute fracture. No worrisome bone lesions. OTHER: No other significant finding. IMPRESSION: NO RADIOGRAPHIC EVIDENCE FOR ACUTE ABDOMINAL DISEASE. TECHNICAL DOCUMENTATION: JOB ID: [id number] [employer]- All Rights Reserved Reading location - IP/workstation name: [facility]
--- NOTE | 2018-04-12 21:58 | ER Document Report ---
ED General - General Mode of Arrival: Ambulatory Information source: Patient TRAVEL OUTSIDE OF THE [place] IN LAST 30 DAYS: No <JANINE COX - Last Filed: 04/12/18 23:45> <NANODIVINECHARY - Last Filed: 04/13/18 06:43> - General Chief Complaint: Abdominal Pain Stated Complaint: VOMITING, ABDOMINAL PAIN Time Seen by Provider: 04/12/18 14:02 Notes: Patient is a 32 year old female with PTSD, Bipolar Disorder 1, manic depression, schizophrenia, anxiety, Parkinson's disease presents to the emergency department complaining of abdominal pain and vomiting onset today. Patient states she was diagnosed with cyclical vomiting on the 12th after presenting with similar symptoms and discharged home. She states she received Haldol while in the emergency department which helped her symptoms greatly. She states similar symptoms were onset this morning and states her abdominal pain is located on the left lower abdomen and radiates into her lower back and shoulder. She also reports being unable to tolerate p.o. and having dark orange urine. Patient states she has not smoked, consumed or applied any marijuana or form of marijuana since the 04/08/18. She denies chest pain, cough, fevers, urinary frequency, burning or hematuria. Patient mentions being recently diagnosed with shingles a few months ago. She states the lesions has since scabbed over. (JANINE COX) - Related Data Allergies/Adverse Reactions: aspirin [Aspirin] Allergy (Severe, Verified 04/12/18 12:56) THROAT SWELLS, HIVES iodine [Iodine] Allergy (Severe, Verified 04/12/18 12:56) Generalized Itching Past Medical History - General Information source: Patient - Social History Smoking Status: Current Every Day Smoker Frequency of alcohol use: None Drug Abuse: Marijuana Family History: Reviewed & Not Pertinent Patient has suicidal ideation: No Patient has homicidal ideation: No - Past Medical History Cardiac Medical History: Reports: Hx Hypercholesterolemia Pulmonary Medical History: Reports: Hx Asthma - MILD, Hx Bronchitis Neurological Medical History: Reports: Hx Migraine Renal/ Medical History: Reports: Hx Kidney Stones GI Medical History: Reports: Hx Gastroesophageal Reflux Disease, Hx Irritable Bowel Musculoskeletal Medical History: Reports Hx Musculoskeletal Deformity, Reports Hx Musculoskeletal Trauma Psychiatric Medical History: Reports: Hx Anxiety, Hx Attention Deficit Hyperactivity Disorder, Hx Bipolar Disorder, Hx Depression, Hx Post Traumatic St ress Disorder, Hx Schizophrenia Past Surgical History: Reports: Hx Abdominal Surgery - UMBILICAL HERNIA, Hx Section, Hx Cholecystectomy, Hx Herniorrhaphy - Umbilical hernia repair, Hx Hysterectomy, Hx Orthopedic Surgery - left shoulder(slap shoulder), Hx Tonsillectomy, Hx Umbilical Hernia, Hx Urinary Tract Surgery - kidney stent 11/22/16 x4 - Immunizations Immunizations up to date: Yes Hx Diphtheria, Pertussis, Tetanus Vaccination: Yes <JANINE COX - Last Filed: 04/12/18 23:45> Review of Systems - Review of Systems Constitutional: No symptoms reported EENT: No symptoms reported Cardiovascular: No symptoms reported Respiratory: No symptoms reported Gastrointestinal: See HPI, Abdominal pain, Diarrhea, Nausea, Vomiting Genitourinary: See HPI Female Genitourinary: No symptoms reported Musculoskeletal: No symptoms reported Skin: No symptoms reported Hematologic/Lymphatic: No symptoms reported Neurological/Psychological: No symptoms reported -: Yes All other systems reviewed and negative <JANINE COX - Last Filed: 04/12/18 23:45> Physical Exam <JANINE COX - Last Filed: 04/12/18 23:45> - Vital signs Vitals: Temp Pulse Resp BP Pulse Ox 98.2 F 109 H 22 H 100/71 100 04/12/18 13:06 04/12/18 13:06 04/12/18 13:06 04/12/18 13:06 04/12/18 13:06 - Notes Notes: GENERAL: Alert, interacts well. No acute distress. HEAD: Normocephalic, atraumatic. EYES: Pupils equal, round, and reactive to light. Extraocular movements intact. ENT: Oral mucosa moist, tongue midline. NECK: Full range of motion. Supple. Trachea midline. LUNGS: Clear to auscultation bilaterally, no wheezes, rales, or rhonchi. No respiratory distress. HEART: Regular rate and rhythm. No murmurs, gallops, or rubs. ABDOMEN: Soft, no RUQ tenderness to palpaiton. Diffuse tenderness to palpation in the LUQ, LLQ and RLQ. Non-distended. Bowel sounds present in all 4 quadrants. EXTREMITIES: Moves all 4 extremities spontaneously. NEUROLOGICAL: Alert and oriented x3. Normal speech. PSYCH: Normal affect, normal mood. SKIN: Warm, dry, normal turgor. No active lesions. BACK: Left and right CVA tenderness with light palpation. (JANINE COX) Course - Laboratory Result Diagrams: 04/12/18 15:22 04/12/18 15:22 <JANINE COX - Last Filed: 04/12/18 23:45> - Laboratory Result Diagrams: 04/12/18 15:22 04/12/18 15:22 <CHARY DAVIS - Last Filed: 04/13/18 06:43> - Re-evaluation Re-evalutation: 04/12/18 23:33 CBC unremarkable, CMP grossly unremarkable, only slightly elevated BUN, lipase normal, urinalysis shows 100 protein and 20 ketones, no signs of infection or blood, urine drug screen shows benzodiazepines and marijuana. Acute abdominal series is unremarkable. Currently doubt any intra-abdominal infection given the fact that the white blood cell count has normalized and she is afebrile here. Patient's abdomen is not tender to deep palpation, only tender to light palpation. Some of the pain is worst on the left-hand side where she used to h ave the shingles, suspect there is a degree of postherpetic neuralgia to her pain. Also suspect that the patient has continued to use marijuana and is having cyclic vomiting syndrome because of this. Patient is strongly recommended to avoid marijuana. Patient was given a second dose of Haldol here, both doses of Haldol decreased her vomiting and enable her to drink. Patient looks quite comfortable sitting on the edge of the bed now after her second dose of Haldol. Patient will be discharged to home. (CHARY DAVIS) - Vital Signs Vital signs: Temp Pulse Resp BP Pulse Ox 98.5 F 78 22 H 133/86 H 98 04/12/18 23:45 04/12/18 23:45 04/12/18 13:06 04/12/18 23:45 04/12/18 23:45 - Laboratory Laboratory results interpreted by me: 04/12/18 04/12/18 15:22 15:22 BUN 21 H Urine Protein 100 H Urine Ketones 20 H Discharge <JANINE COX - Last Filed: 04/12/18 23:45> <CHARY DAVIS - Last Filed: 04/13/18 06:43> - Discharge Clinical Impression: Vomiting Qualifiers: Vomiting type: cyclical vomiting Vomiting Intractability: intractable Nausea presence: with nausea Qualified Code(s): G43.A1 - Cyclical vomiting, intractable Abdominal pain Qualifiers: Abdominal location: generalized Qualified Code(s): R10.84 - Generalized abdominal pain Condition: Stable Disposition: HOME, SELF-CARE Additional Instructions: Do not use marijuana in any way. This will worsen your vomiting. Please take all of your medications as directed. If despite avoiding marijuana for the next 2 weeks you continue to have intermittent vomiting and abdominal pain you should strongly consider following up with your psychiatrist and either GI doc or neurologist to discuss the possibility of abdominal migraines as you do have a history of typical migraines as well. Return for worsening pain, inability to keep down food or water, or fevers. Prescriptions: Ondansetron [Zofran Odt 4 mg Tablet] 1 - 2 tab PO Q4HP PRN #10 tab.rapdis PRN Reason: Referrals: INDIGO SHAW PA-C [Primary Care Provider] - Follow up as needed [employer] Attestation: 04/13/18 06:43 I personally performed the services described in the documentation, reviewed and edited the documentation which was dictated to the scribe in my presence, and it accurately records my words and actions. (CHARY DAVIS) Scribe Documentation - Scribe Written by Jody:: Jody Garcia, 04/12/2018 22:17 acting as scribe for :: Sadie <JANINE COX - Last Filed: 04/12/18 23:45>
[2018-04-12 22:20] LABS: LIPASE 60.1 U/L (23-300)
[2018-04-12 23:59] VITALS: BP 133/86
== END 2018-04-13 00:04 | disposition home or self-care (01) ==
LOC: ER 12:51
DX: G43.A1 Cyclical vomiting, in migraine, intractable (principal); R10.84 Generalized abdominal pain; R10.32 Left lower quadrant pain; M54.5 Low back pain; R39.198 Other difficulties with micturition; F17.200 Nicotine dependence, unspecified, uncomplicated; J45.909 Unspecified asthma, uncomplicated
CPT/HCPCS: 99284; 96372; 36415; 83690; 85025; 80053; 81001; 80307; 74022; J1630

== ENCOUNTER 2018-06-13 08:22 | Emergency (ER) | payer MEDICARE, MEDICAID ==
[2018-06-13 08:28] VITALS: BP 114/71
[2018-06-13 08:56] LABS: ABSOLUTE EOSINOPHILS # (AUTO) 0.2 10^3/uL (0.0-0.6); ABSOLUTE LYMPHOCYTES (AUTO) 3.1 10^3/uL (0.5-4.7); ABSOLUTE MONOCYTES (AUTO) 0.5 10^3/uL (0.1-1.4); ABSOLUTE NEUT (AUTO) 3.1 10^3/uL (1.7-8.2); BASOPHILS % (AUTO) 0.2 % (0-2); EOSINOPHILS % (AUTO) 2.5 % (0-6); HEMATOCRIT 37.9 % (36.0-47.0); HEMOGLOBIN 12.9 g/dL (12.0-15.5); LYMPHOCYTES % (AUTO) 44.8 % (13-45); MEAN CORPUSCULAR HEMOGLOBIN 28.7 pg (27.0-33.4); MEAN CORPUSCULAR VOLUME 84 fl (80-97); MONOCYTES % (AUTO) 7.9 % (3-13); PLATELET COUNT 263 10^3/uL (150-450); RED BLOOD COUNT 4.49 10^6/uL (3.72-5.28); RED CELL DISTRIBUTION WIDTH 14.7 % (11.5-14.0); SEGMENTED NEUTROPHILS % (AUTO) 44.6 % (42-78); TOTAL CELLS COUNTED % (AUTO) 100 %; WHITE BLOOD COUNT 6.9 10^3/uL (4.0-10.5)
--- NOTE | 2018-06-13 09:01 | ER Document Report ---
HPI - HPI Patient complains to provider of: foot rash Time Seen by Provider: 06/13/18 08:32 Onset: Other - years Onset/Duration: Persistent Pain Level: 4 Context: Patient complains of scaling rash to the plantar surface of bilateral feet for several years. Patient states that she has had a discoloration of the left great toenail for over 7 months. Patient states that she got tired of her s ymptoms which prompted her visit today. Patient states her primary doctor has seen her for this problem and given her topical creams have not worked. Associated Symptoms: Other - Rash to foot, discoloration of toenail Exacerbated by: Denies Relieved by: Denies Similar symptoms previously: No Recently seen / treated by doctor: Yes - ROS ROS below otherwise negative: Yes Systems Reviewed and Negative: Yes All other systems reviewed and negative - CONSTITUTIONAL Constitutional: DENIES: Fever, Chills - NEURO Neurology: DENIES: Headache, Weakness, Vision blurred, Dizzinesss / Vertigo - RESPIRATORY Respiratory: DENIES: Trouble Breathing, Coughing - URINARY Urinary: DENIES: Dysuria, Urgency, Frequency - REPRODUCTIVE Reproductive: DENIES: : - MUSCULOSKELETAL Musculoskeletal: REPORTS: Extremity pain - bilateral feet/left great toe - DERM Skin Problems: Rash Past Medical History - General Information source: Patient - Social History Smoking Status: Current Every Day Smoker Chew tobacco use (# tins/day): No Smoking Education Provided: Yes Frequency of alcohol use: None Drug Abuse: Marijuana Occupation: None Lives with: Family Family History: Reviewed & Not Pertinent Patient has suicidal ideation: No Patient has homicidal ideation: No - Past Medical History Cardiac Medical History: Reports: Hx Hypercholesterolemia Pulmonary Medical History: Reports: Hx Asthma - MILD, Hx Bronchitis Denies: Hx COPD, Hx Pneumonia Neurological Medical History: Reports: Hx Migraine. Denies: Hx Cerebrovascular Accident, Hx Seizures Renal/ Medical History: Reports: Hx Kidney Stones. Denies: Hx Peritoneal Dialysis GI Medical History: Reports: Hx Gastroesophageal Reflux Disease, Hx Irritable Bowel Musculoskeletal Medical History: Denies Hx Arthritis, Reports Hx Musculoskeletal Deformity, Reports Hx Musculoskeletal Trauma Psychiatric Medical History: Reports: Hx Anxiety, Hx Attention Deficit Hyperactivity Disorder, Hx Bipolar Disorder, Hx Depression, Hx Post Traumatic Stress Disorder, Hx Schizophrenia Past Surgical History: Reports: Hx Abdominal Surgery - UMBILICAL HERNIA, Hx Section, Hx Cholecystectomy, Hx Herniorrhaphy - Umbilical hernia repair, Hx Hysterectomy, Hx Orthopedic Surgery - left shoulder(slap shoulder), Hx Tonsillectomy, Hx Umbilical Hernia, Hx Urinary Tract Surgery - kidney stent 11/22/16 x4 - Immunizations Immunizations up to date: Yes Hx Diphtheria, Pertussis, Tetanus Vaccination: Yes Vertical Provider Document - CONSTITUTIONAL Agree With Documented VS: Yes Exam Limitations: No Limitations General Appearance: WD/WN, No Apparent Distress - INFECTION CONTROL TRAVEL OUTSIDE OF THE [place] IN LAST 30 DAYS: No - HEENT HEENT: Atraumatic, Normocephalic - NECK Neck: Normal Inspection - RESPIRATORY Respiratory: Breath Sounds Normal, No Respiratory Distress - CARDIOVASCULAR Cardiovascular: Regular Rate, Regular Rhythm Pulses: Normal: Dorsalis pedis - MUSCULOSKELETAL/EXTREMETIES Musculoskeletal/Extremeties: MAEW - NEURO Level of Consciousness: Awake, Alert, Appropriate Motor/Sensory: No Motor Deficit - DERM Integumentary: Warm, Dry, Rash - Scaling rash to plantar surface of bilateral feet. Patient with thickened, discoloration of left great toenail and right fifth toenail, no surrounding erythema Course - Re-evaluation Re-evalutation: 06/13/18 09:34 Explained to patient that she will need several months worth of treatment and monitoring of liver function tests while she is on the medication. Patient advised that she will need to see her primary doctor for additional treatment. - Vital Signs Vital signs: Temp Pulse Resp BP Pulse Ox 97.5 F 87 15 114/71 100 06/13/18 08:26 06/13/18 08:26 06/13/18 08:26 06/13/18 08:26 06/13/18 08:26 - Laboratory Result Diagrams: 06/13/18 08:50 Laboratory results interpreted by me: 06/13/18 08:50 RDW 14.7 H 06/13/18 09:34 Labs- Entire Visit 06/13/18 06/13/18 08:50 08:50 WBC 6.9 RBC 4.49 Hgb 12.9 Hct 37.9 MCV 84 MCH 28.7 MCHC 34.0 RDW 14.7 H Plt Count 263 Seg Neutrophils % 44.6 Lymphocytes % 44.8 Monocytes % 7.9 Eosinophils % 2.5 Basophils % 0.2 Absolute Neutrophils 3.1 Absolute Lymphocytes 3.1 Absolute Monocytes 0.5 Absolute Eosinophils 0.2 Absolute Basophils 0.0 Total Bilirubin 0.2 Direct Bilirubin 0.2 Neonat Total Bilirubin Not Reportable Neonat Direct Bilirubin Not Reportable Neonat Indirect Bili Not Reportable AST 14 ALT 16 Alkaline Phosphatase 73 Total Protein 6.2 L Albumin 3.9 Discharge - Discharge Clinical Impression: Onychomycosis Tinea pedis Qualifiers: Laterality: bilateral Qualified Code(s): B35.3 - Tinea pedis Condition: Stable Disposition: HOME, SELF-CARE Instructions: Fungal Nail Infection ([facility]), Skin Fungus ([facility]) Additional Instructions: Return immediately for any new or worsening symptoms Followup with your primary care provider, call tomorrow to make a followup appointment You will need several months of treatment with the oral medication and monitoring of your laboratory tests to be sure that it is safe to continue the medication. You should follow-up with your primary doctor and they can make a referral to podiatry or dermatology as needed. Prescriptions: Terbinafine HCl [Lamisil 250 mg Tablet] 250 mg PO DAILY #15 tablet Referrals: INDIGO SHAW PA-C [Primary Care Provider] - Follow up in 3-5 days
[2018-06-13 09:16] LABS: ALANINE AMINOTRANSFERASE 16 U/L (9-52); ALBUMIN 3.9 g/dL (3.5-5.0); ALKALINE PHOSPHATASE 73 U/L (38-126); ASPARTATE AMINO TRANSFERASE 14 U/L (14-36); BILIRUBIN,DIRECT 0.2 mg/dL (0.0-0.4); BILIRUBIN,TOTAL 0.2 mg/dL (0.2-1.3); TOTAL PROTEIN 6.2 g/dL (6.3-8.2)
== END 2018-06-13 09:46 | disposition home or self-care (01) ==
LOC: ER 08:22
DX: B35.3 Tinea pedis (principal); B35.1 Tinea unguium; F17.200 Nicotine dependence, unspecified, uncomplicated; J45.909 Unspecified asthma, uncomplicated; F12.10 Cannabis abuse, uncomplicated
CPT/HCPCS: 36415; 80076; 85025; 99283

== ENCOUNTER → 2019-06-27 | Outpatient (CLI) | payer MEDICARE, MEDICAID ==
--- NOTE | 2019-06-27 16:25 | RADIOLOGY REPORT (SQ) ---
EXAM DESCRIPTION: CHEST PA/LATERAL IMAGES COMPLETED DATE/TIME: 06/27/2019 4:06 pm REASON FOR STUDY: COUGH COMPARISON: None. EXAM PARAMETERS: NUMBER OF VIEWS: two views TECHNIQUE: Digital Frontal and Lateral radiographic views of the chest acquired. RADIATION DOSE: NA LIMITATIONS: none FINDINGS: LUNGS AND PLEURA: Low lung volumes. Mild bilateral peribronchial cuffing may be on the b asis of viral syndrome versus reactive airway disease. No acute pulmonary consolidation. No pneumot horax or pleural effusion. MEDIASTINUM AND HILAR STRUCTURES: No masses or contour abnormalities. HEART AND VASCULAR STRUCTURES: Stable appearance. No evidence for failure. BONES: No acute findings. HARDWARE: None in the chest. OTHER: No other significant finding. IMPRESSION: 1. Low lung volumes. Mild bilateral peribronchial cuffing may be on the basis of viral syndrome versus reactive airway disease. 2. No acute pulmonary consolidation. TECHNICAL DOCUMENTATION: JOB ID: [id number] 2010 [employer]- All Rights Reserved Reading location - IP/workstation name: [email or web address]
== END ==
LOC: OD 15:48
PROVIDERS: ATTEND Physician Assistant
DX: R05 Cough (principal)
CPT/HCPCS: 71046

== ENCOUNTER 2019-06-29 22:30 | Emergency (ER) | payer MEDICARE, MEDICAID ==
[2019-06-29] MEDS ORDERED: NORMAL SALINE 1000 ML 1,000 ML IV ONE (23:27)
--- NOTE | 2019-06-29 23:28 | ER Document Report ---
ED Respiratory Problem - General Chief Complaint: Cold Symptoms Stated Complaint: COUGH Time Seen by Provider: 06/29/19 22:53 Primary Care Provider: JASS SHEPARD PA [Primary Care Provider] - Follow up as needed Mode of Arrival: Ambulatory Information source: Patient Notes: 33-year-old female patient presents emergency department chief complaint of cough x1 week. Patient reports nonproductive cough, worse in the morning and the evening. She reports she just traveled back from [place] 5 days ago. She denies any fever but reports chills and sweats. Denies any known exposure to any COVID-19 patients. TRAVEL OUTSIDE OF THE [place] IN LAST 30 DAYS: No - Related Data Allergies/Adverse Reactions: aspirin [Aspirin] Allergy (Severe, Verified 06/13/18 08:27) THROAT SWELLS, HIVES iodine [Iodine] Allergy (Severe, Verified 06/13/18 08:27) Generalized Itching Home Medications: xanax, adderall, hydrox, trazodone, Equetro, Seroquel, Fenap, Past Medical History - General Information source: Patient - Social History Smoking Status: Current Every Day Smoker Frequency of alcohol use: None Drug Abuse: None Family History: Reviewed & Not Pertinent Patient has suicidal ideation: No Patient has homicidal ideation: No - Past Medical History Cardiac Medical History: Reports: Hx Hypercholesterolemia Pulmonary Medical History: Reports: Hx Asthma - MILD, Hx Bronchitis Denies: Hx COPD, Hx Pneumonia Neurological Medical History: Reports: Hx Migraine. Denies: Hx Cerebrovascular Accident, Hx Seizures Renal/ Medical History: Reports: Hx Kidney Stones. Denies: Hx Peritoneal Dialysis GI Medical History: Reports: Hx Gastroesophageal Reflux Disease, Hx Irritable Bowel Musculoskeletal Medical History: Denies Hx Arthritis, Reports Hx Musculoskeletal Deformity, Reports Hx Musculoskeletal Trauma Psychiatric Medical History: Reports: Hx Anxiety, Hx Attention Deficit Hyperactivity Disorder, Hx Bipolar Disorder, Hx Depression, Hx Post Traumatic Stress Disorder, Hx Schizophrenia Past Surgical History: Reports: Hx Abdominal Surgery - UMBILICAL HERNIA, Hx Section, Hx Cholecystectomy, Hx Herniorrhaphy - Umbilical hernia re pair, Hx Hysterectomy, Hx Orthopedic Surgery - left shoulder(slap shoulder), Hx Tonsillectomy, Hx Umbilical Hernia, Hx Urinary Tract Surgery - kidney stent 11/22/16 x4 - Immunizations Immunizations up to date: Yes Hx Diphtheria, Pertussis, Tetanus Vaccination: Yes Review of Systems - Review of Systems Constitutional: Chills EENT: Throat pain Cardiovascular: Orthopnea Respiratory: Cough, Short of breath Gastrointestinal: No symptoms reported Genitourinary: No symptoms reported Female Genitourinary: No symptoms reported Musculoskeletal: No symptoms reported Skin: No symptoms reported Hematologic/Lymphatic: No symptoms reported Neurological/Psychological: No symptoms reported Physical Exam - Vital signs Vitals: Temp Pulse Resp BP Pulse Ox 97.7 F 116 H 17 127/81 H 100 06/29/19 22:48 06/29/19 22:48 06/29/19 22:48 06/29/19 22:48 06/29/19 22:48 - Notes Notes: PHYSICAL EXAMINATION: GENERAL: Well-appearing, well-nourished. No acute distress noted. HEAD: Atraumatic, normocephalic. EYES: Pupils equal round and reactive to light, extraocular movements intact, conjunctiva are normal. ENT: Nares patent, oropharynx clear without exudates. Moist mucous membranes. NECK: Normal range of motion, supple without lymphadenopathy, oropharynx mildly erythematous but without exudates or tonsillar swelling. LUNGS: Breath sounds clear to auscultation bilaterally and equal. No wheezes rales or rhonchi. Mildly increased work of breathing. HEART: Regular rate and rhythm without murmurs ABDOMEN: Soft, nontender, nondistended abdomen. No guarding, no rebound. No masses appreciated. Female : deferred Musculoskeletal: Normal range of motion, no pitting or edema. No cyanosis. NEUROLOGICAL: Cranial nerves grossly intact. Normal speech, normal gait. Normal sensory, motor exams PSYCH: Normal mood, normal affect. SKIN: Warm, Dry, normal turgor, no rashes or lesions noted. Course - Re-evaluation Re-evalutation: 06/30/19 01:23 Laboratory 06/29/19 06/29/19 06/30/19 23:44 23:44 00:15 WBC 10.4 RBC 4.43 Hgb 13.6 Hct 37.9 MCV 86 MCH 30.7 MCHC 35.9 RDW 13.7 Plt Count 296 Lymph % (Auto) 34.8 Fajardo % (Auto) 8.5 Eos % (Auto) 0.6 Baso % (Auto) 0.2 Absolute Neuts (auto) 5.8 Absolute Lymphs (auto) 3.6 Absolute Monos (auto) 0.9 Absolute Eos (auto) 0.1 Absolute Basos (auto) 0.0 Seg Neutrophils % 55.9 Sodium Potassium Chloride Carbon Dioxide Anion Gap BUN Creatinine Est GFR ( Amer) Est GFR (MDRD) Non-Af Glucose Calcium Total Bilirubin Direct Bilirubin Neonat Total Bilirubin Neonat Direct Bilirubin Neonat Indirect Bili AST ALT Alkaline Phosphatase Total Protein Albumin Influenza A (Rapid) NEGATIVE Influenza B (Rapid) NEGATIVE Group A Strep Rapid POSITIVE 06/30/19 00:15 WBC RBC Hgb Hct MCV MCH MCHC RDW Plt Count Lymph % (Auto) Fajardo % (Auto) Eos % (Auto) Baso % (Auto) Absolute Neuts (auto) Absolute Lymphs (auto) Absolute Monos (auto) Absolute Eos (auto) Absolute Basos (auto) Seg Neutrophils % Sodium 139.0 Potassium 3.9 Chloride 103 Carbon Dioxide 30 Anion Gap 6 BUN 14 Creatinine 0.65 Est GFR ( Amer) > 60 Est GFR (MDRD) Non-Af > 60 Glucose 111 H Calcium 9.5 Total Bilirubin 0.2 Direct Bilirubin 0.0 Neonat Total Bilirubin Not Reportable Neonat Direct Bilirubin Not Reportable Neonat Indirect Bili Not Reportable AST 21 ALT 13 Alkaline Phosphatase 98 Total Protein 7.4 Albumin 4.3 Influenza A (Rapid) Influenza B (Rapid) Group A Strep Rapid Chest X-Ray 06/29/19 23:27 IMPRESSION: Low lung volume chest radiograph with nonspecific patchy and poorly seen groundglass opacification bilaterally. Patient will be started on azithromycin, Tessalon and albuterol. Patient tested for COVID-19. Patient's vital signs are stable, she is not hypoxic or tachypneic and she will be discharged home at this time. Patient agrees to quarantine herself as per the recommendation of the health department guidelines. She also understands ED return precautions. - Vital Signs Vital signs: Temp Pulse Resp BP Pulse Ox 97.7 F 116 H 25 H 99/68 L 100 06/29/19 22:48 06/29/19 22:48 06/30/19 00:01 06/29/19 23:07 06/30/19 00:01 - Laboratory Result Diagrams: 06/30/19 00:15 06/30/19 00:15 Laboratory results interpreted by me: 06/30/19 00:15 Glucose 111 H Discharge - Discharge Clinical Impression: Suspected COVID-19 virus infection, Strep pharyngitis Dyspnea Qualifiers: Dyspnea type: unspecified Qualified Code(s): R06.00 - Dyspnea, unspecified Condition: Stable Disposition: HOME, SELF-CARE Additional Instructions: Today your chest x-ray did not show any signs of pneumonia. Your flu swabs were negative. Rapid strep was positive. I suspect your cough is coming from a viral infection, possibly covid-19. Your oxygen level is not so low that you need to be admitted. I would like you to use the inhaler with spacer that we gave you, 2 puffs every 4 hours as needed to decrease cough or improve your breathing. If you have to use it more often than every 4 hours, if simply walking across the room makes you feel like you are going to pass out or like you just walked up 2 flights of steps please return to the emergency department. Please let any healthcare personnel that you see know that you have been tested for coronavirus. This includes if you need to return to the emergency department. Please use nasal saline rinses such as a NetiPot or NeilMed Sinus Rinses. Please use nasal steroid such as Nasonex 1 squirt per nostril twice a day to decrease inflammation and swelling. Please also use [id number] decongestants according to their directions on the box such as Sudafed during the day and Benadryl at night. You were tested for coronavirus (COVID 19) but these results may take 7-10 days or more to come back. Please stay in your house until they are resulted back or until you have been completely symptom-free for at least 3 days. Prescriptions: Benzonatate [Tessalon Perles 100 mg Capsule] 2 tab PO Q8HP PRN #30 capsule PRN Reason: Azithromycin 500 mg PO DAILY #4 tablet Albuterol Sulfate [Proair HFA Inhalation Aerosol 8.5 gm MDI] 2 puff IH Q4H PRN #1 mdi PRN Reason: Referrals: JASS SHEPARD PA [Primary Care Provider] - Follow up as needed
[2019-06-30 00:23] LABS: A TYPE INFLUENZA AG NEGATIVE (NEGATIVE); B INFLUENZA AG NEGATIVE (NEGATIVE)
[2019-06-30 00:27] LABS: ABSOLUTE EOSINOPHILS # (AUTO) 0.1 10^3/uL (0.0-0.6); ABSOLUTE LYMPHOCYTES (AUTO) 3.6 10^3/uL (0.5-4.7); ABSOLUTE MONOCYTES (AUTO) 0.9 10^3/uL (0.1-1.4); ABSOLUTE NEUT (AUTO) 5.8 10^3/uL (1.7-8.2); BASOPHILS % (AUTO) 0.2 % (0-2); EOSINOPHILS % (AUTO) 0.6 % (0-6); HEMATOCRIT 37.9 % (36.0-47.0); HEMOGLOBIN 13.6 g/dL (12.0-15.5); LYMPHOCYTES % (AUTO) 34.8 % (13-45); MEAN CORPUSCULAR HEMOGLOBIN 30.7 pg (27.0-33.4); MEAN CORPUSCULAR HGB CONC 35.9 g/dL (32.0-36.0); MEAN CORPUSCULAR VOLUME 86 fl (80-97); MONOCYTES % (AUTO) 8.5 % (3-13); PLATELET COUNT 296 10^3/uL (150-450); RED BLOOD COUNT 4.43 10^6/uL (3.72-5.28); RED CELL DISTRIBUTION WIDTH 13.7 % (11.5-14.0); SEGMENTED NEUTROPHILS % (AUTO) 55.9 % (42-78); TOTAL CELLS COUNTED % (AUTO) 100 %; WHITE BLOOD COUNT 10.4 10^3/uL (4.0-10.5)
--- NOTE | 2019-06-30 00:38 | RADIOLOGY REPORT (SQ) ---
EXAM DESCRIPTION: AP portable radiograph of the chest CLINICAL HISTORY: 33 years Female, cough COMPARISON: Two views of the chest 06/27/2019 FINDINGS: Lungs: Lung volumes are low and there is subtle patchy groundglass opacification bilaterally. No pneumothorax. No pleural effusion. No focal consolidation. Mediastinum: Cardiac and mediastinal silhouette are unchanged. Bones: Osseous structures are normal. IMPRESSION: Low lung volume chest radiograph with nonspecific patchy and poorly seen groundglass opacification bilaterally.
[2019-06-30 00:47] LABS: ALBUMIN 4.3 g/dL (3.5-5.0); ALKALINE PHOSPHATASE 98 U/L (38-126); ANION GAP 6 (5-19); ASPARTATE AMINO TRANSFERASE 21 U/L (14-36); BILIRUBIN,TOTAL 0.2 mg/dL (0.2-1.3); BLOOD UREA NITROGEN 14 mg/dL (7-20); CALCIUM 9.5 mg/dL (8.4-10.2); CARBON DIOXIDE 30 mmol/L (22-30); CHLORIDE 103 mmol/L (98-107); GLUCOSE 111 mg/dL (75-110); POTASSIUM 3.9 mmol/L (3.6-5.0); TOTAL PROTEIN 7.4 g/dL (6.3-8.2)
[2019-06-30] MEDS ORDERED: AZITHROMYCIN 250 MG TABLET PO ONE (00:52)
[2019-06-30] MEDS ORDERED: BENZONATATE 100 MG CAPSULE PO ONE (01:08)
[2019-06-30 01:39] VITALS: BP 116/84
== END 2019-06-30 01:39 | disposition home or self-care (01) ==
LOC: ER 22:30
DX: Z20.828 Contact with and (suspected) exposure to other viral communicable diseases (principal); J02.0 Streptococcal pharyngitis; R05 Cough; R06.00 Dyspnea, unspecified; F17.200 Nicotine dependence, unspecified, uncomplicated; E78.00 Pure hypercholesterolemia, unspecified; Z88.6 Allergy status to analgesic agent; Z87.442 Personal history of urinary calculi; Z90.49 Acquired absence of other specified parts of digestive tract
CPT/HCPCS: 99283; 96360; 36415; 87880; 85025; 87635; 80053; 87804; 71045; A9270 ×2; J7030

== ENCOUNTER 2019-12-04 15:43 | Emergency (ER) | payer MEDICARE, MEDICAID ==
[2019-12-04] MEDS ORDERED: METHYLPREDNISOLONE INJ 125 MG/2 ML SDV IV ONE (16:08)
[2019-12-04] MEDS ORDERED: DIPHENHYDRAMINE HCL 50 MG/ML VIAL IV ONE (16:08)
--- NOTE | 2019-12-04 16:14 | ER Document Report ---
ED Medical Screen (RME) - General Chief Complaint: Lower Abdominal Pain Stated Complaint: LOW ABDOMINAL PAIN Time Seen by Provider: 12/04/19 15:57 Primary Care Provider: JASS SHEPARD PA [Primary Care Provider] - Follow up as needed TRAVEL OUTSIDE OF THE [place] IN LAST 30 DAYS: No - HPI Notes: 12/04/19 16:09 34-year-old female presents to the emergency room today with complaints of left pelvic pain that extends to the right lower quadrant and left lower quadrant that radiates to her left flank area for the last 3 days. Reports pain comes and goes. Today she is noticed some increased frequency and urgency with urination. Has tried [id number] Tylenol and ibuprofen with some relief. Denies any vaginal bleeding or vaginal discharge. Patient reports she had a complete hysterectomy done 8 years ago due to a uterine fibroid, scarring to her fallopian tubes, etc. last bowel movement was this morning. Patient states she does have a history of nephrolithiasis, states she passed a kidney stone 2 weeks ago. Denies any nausea vomiting diarrhea denies any chest pain shortness of breath. Tried [id number] Tylenol and ibuprofen. I have greeted and performed a rapid initial assessment of this patient. A comprehensive ED assessment and evaluation of the patient, analysis of test results and completion of the medical decision making process will be conducted by additional ED providers. PHYSICAL EXAMINATION: GENERAL: Well-appearing, well-nourished and in no acute distress. CV: s1, s2 regular LUNGS: No respiratory distress abd: RLQ, suprapubic, LLQ, scant L flank tenderness on palpation. Musculoskeletal: Normal range of motion NEUROLOGICAL: Normal speech, normal gait. SKIN: Warm, Dry, normal turgor, no rashes or lesions noted. 12/04/19 16:13 - Related Data Allergies/Adverse Reactions: aspirin [Aspirin] Allergy (Severe, Verified 06/13/18 08:27) THROAT SWELLS, HIVES iodine [Iodine] Allergy (Severe, Verified 06/13/18 08:27) Generalized Itching Past Medical History - Social History Family history: None - Past Medical History Cardiac Medical History: Reports: Hx Hypercholesterolemia Pulmonary Medical History: Reports: Hx Asthma - MILD, Hx Bronchitis Denies: Hx COPD, Hx Pneumonia Neurological Medical History: Reports: Hx Migraine. Denies: Hx Cerebrovascular Accident, Hx Seizures Renal/ Medical History: Reports: Hx Kidney Stones. Denies: Hx Peritoneal Dialysis GI Medical History: Reports: Hx Gastroesophageal Reflux Disease, Hx Irritable Bowel Musculoskeltal Medical History: Denies Hx Arthritis, Reports Hx Musculoskeletal Deformity, Reports Hx Musculoskeletal Trauma Psychiatric Medical History: Reports: Hx Anxiety, Hx Attention Deficit Hyperactivity Disorder, Hx Bipolar Disorder, Hx Depression, Hx Post Traumatic Stress Disorder, Hx Schizophrenia Past Surgical History: Reports: Hx Abdominal Surgery - UMBILICAL HERNIA, Hx Section, Hx Cholecystectomy, Hx Herniorrhaphy - Umbilical hernia repair, Hx Hysterectomy, Hx Orthopedic Surgery - left shoulder(slap shoulder), Hx Tonsillectomy, Hx Umbilical Hernia, Hx Urinary Tract Surgery - kidney stent 11/22/16 x4 - Immunizations Immunizations up to date: Yes Hx Diphtheria, Pertussis, Tetanus Vaccination: Yes Physical Exam - Vital signs Vitals: Temp Pulse Resp BP Pulse Ox 98.1 F 91 16 129/73 H 100 12/04/19 15:50 12/04/19 15:50 12/04/19 15:50 12/04/19 15:50 12/04/19 15:50 Course - Vital Signs Vital signs: Temp Pulse Resp BP Pulse Ox 98.1 F 91 16 129/73 H 100 12/04/19 15:50 12/04/19 15:50 12/04/19 15:50 12/04/19 15:50 12/04/19 15:50 Doctor's Discharge - Discharge Referrals: JASS SHEPARD PA [Primary Care Provider] - Follow up as needed
[2019-12-04 16:54] LABS: ABSOLUTE EOSINOPHILS # (AUTO) 0.3 10^3/uL (0.0-0.6); ABSOLUTE MONOCYTES (AUTO) 0.7 10^3/uL (0.1-1.4); ABSOLUTE NEUT (AUTO) 7.7 10^3/uL (1.7-8.2); BASOPHILS % (AUTO) 0.2 % (0-2); EOSINOPHILS % (AUTO) 2.3 % (0-6); HEMATOCRIT 37.8 % (36.0-47.0); LYMPHOCYTES % (AUTO) 25.8 % (13-45); MEAN CORPUSCULAR HEMOGLOBIN 30.2 pg (27.0-33.4); MEAN CORPUSCULAR HGB CONC 34.3 g/dL (32.0-36.0); MEAN CORPUSCULAR VOLUME 88 fl (80-97); PLATELET COUNT 302 10^3/uL (150-450); RED BLOOD COUNT 4.29 10^6/uL (3.72-5.28); RED CELL DISTRIBUTION WIDTH 13.4 % (11.5-14.0); SEGMENTED NEUTROPHILS % (AUTO) 65.7 % (42-78); TOTAL CELLS COUNTED % (AUTO) 100 %; WHITE BLOOD COUNT 11.7 10^3/uL (4.0-10.5)
[2019-12-04 17:11] LABS: APPEARANCE,URINE CLEAR; BILIRUBIN,URINE NEGATIVE (NEGATIVE); COLOR,URINE YELLOW; GLUCOSE, URINE NEGATIVE (NEGATIVE); KETONES,URINE NEGATIVE (NEGATIVE); LEUKOCYTE ESTERASE,URINE TRACE (NEGATIVE); NITRITE,URINE NEGATIVE (NEGATIVE); PROTEIN,URINE NEGATIVE (NEGATIVE); URINE SPECIFIC GRAVITY 1.011; UROBILINOGEN,URINE NEGATIVE mg/dL (<2.0)
[2019-12-04 17:14] LABS: ALBUMIN 4.5 g/dL (3.5-5.0); ALKALINE PHOSPHATASE 114 U/L (38-126); ANION GAP 9 (5-19); ASPARTATE AMINO TRANSFERASE 20 U/L (14-36); BILIRUBIN,DIRECT 0.3 mg/dL (0.0-0.4); BILIRUBIN,TOTAL 0.4 mg/dL (0.2-1.3); BLOOD UREA NITROGEN 11 mg/dL (7-20); CALCIUM 9.3 mg/dL (8.4-10.2); CARBON DIOXIDE 26 mmol/L (22-30); CHLORIDE 104 mmol/L (98-107); GLUCOSE 86 mg/dL (75-110); POTASSIUM 4.4 mmol/L (3.6-5.0)
--- NOTE | 2019-12-04 17:22 | ER Document Report ---
ED GI/ - General Chief Complaint: Flank Pain Stated Complaint: LOW ABDOMINAL PAIN Time Seen by Provider: 12/04/19 15:57 Primary Care Provider: [facility] [Provider Group] - Follow up tomorrow JASS SHEPARD PA [Primary Care Provider] - Follow up tomorrow Mode of Arrival: Ambulatory Information source: Patient Notes: Patient presents complaining of left flank pain that radiates around to left side for the past 3 days. Patient states she had some pressure with voiding and some urinary frequency. Patient denies any vaginal bleeding or discharge. P atient denies any nausea vomiting or diarrhea. Patient does have a history of kidney stones and states that this is similar to when she is had stones in the past. TRAVEL OUTSIDE OF THE [place] IN LAST 30 DAYS: No - HPI Patient complains to provider of: Abdominal pain, Flank pain. No: Vomiting Onset: Other - 3 days Timing/Duration: Waxing and waning Quality of pain: Sharp Pain Level: 4 Location: Left flank Vaginal bleeding (Compared to normal period): None Menstrual period history: denies: Associated symptoms: Urinary frequency. denies: Diarrhea, Dysuria, Fever, Nausea, Urinary hesitancy, Urinary retention, Urinary urgency, Vaginal discharge, Vomiting Exacerbated by: Denies Relieved by: Denies Similar symptoms previously: Yes Recently seen / treated by doctor: No - Related Data Allergies/Adverse Reactions: aspirin [Aspirin] Allergy (Severe, Verified 06/13/18 08:27) THROAT SWELLS, HIVES iodine [Iodine] Allergy (Severe, Verified 06/13/18 08:27) Generalized Itching Home Medications: estradiol, omeprazole, singulair, cogentin, hydroxyzine, eque tro, prazosin, klonopin, metoformin, belsomra, adderall, fanapt, seroquel, trazodone Past Medical History - General Information source: Patient - Social History Smoking Status: Current Every Day Smoker Chew tobacco use (# tins/day): No Frequency of alcohol use: Occasional Drug Abuse: Marijuana Occupation: None Family History: Reviewed & Not Pertinent - Past Medical History Cardiac Medical History: Reports: Hx Hypercholesterolemia Pulmonary Medical History: Reports: Hx Asthma - MILD, Hx Bronchitis Denies: Hx COPD, Hx Pneumonia Neurological Medical History: Reports: Hx Migraine. Denies: Hx Cerebrovascular Accident, Hx Seizures Renal/ Medical History: Reports: Hx Kidney Stones. Denies: Hx Peritoneal Dialysis GI Medical History: Reports: Hx Gastroesophageal Reflux Disease, Hx Irritable Bowel Musculoskeletal Medical History: Denies Hx Arthritis, Reports Hx Musculoskeletal Deformity, Reports Hx Musculoskeletal Trauma Psychiatric Medical History: Reports: Hx Anxiety, Hx Attention Deficit Hyperactivity Disorder, Hx Bipolar Disorder, Hx Depression, Hx Post Traumatic St ress Disorder, Hx Schizophrenia Past Surgical History: Reports: Hx Abdominal Surgery - UMBILICAL HERNIA, Hx Section, Hx Cholecystectomy, Hx Herniorrhaphy - Umbilical hernia repair, Hx Hysterectomy, Hx Orthopedic Surgery - left shoulder(slap shoulder), Hx Tonsillectomy, Hx Umbilical Hernia, Hx Urinary Tract Surgery - kidney stent 11/22/16 x4 - Immunizations Immunizations up to date: Yes Hx Diphtheria, Pertussis, Tetanus Vaccination: Yes Review of Systems - Review of Systems Constitutional: No symptoms reported. denies: Fever, Recent illness EENT: No symptoms reported Cardiovascular: No symptoms reported Respiratory: No symptoms reported. denies: Cough, Short of breath Gastrointestinal: Abdominal pain. denies: Diarrhea, Nausea, Vomiting Genitourinary: Frequency, Flank pain. denies: Dysuria, Discharge Female Genitourinary: No symptoms reported. denies: Vaginal discharge, Vaginal bleeding Musculoskeletal: Back pain Skin: No symptoms reported Hematologic/Lymphatic: No symptoms reported Neurological/Psychological: No symptoms reported Physical Exam - Vital signs Vitals: Temp Pulse Resp BP Pulse Ox 98.1 F 91 16 129/73 H 100 12/04/19 15:50 12/04/19 15:50 12/04/19 15:50 12/04/19 15:50 12/04/19 15:50 - Notes Notes: PHYSICAL EXAMINATION: GENERAL: Well-appearing and in no acute distress. HEAD: Atraumatic, normocephalic. EYES: sclera anicteric, conjunctiva are normal. ENT: nares patent. Moist mucous membranes. NECK: Normal range of motion, supple without lymphadenopathy LUNGS: CTAB and equal. No wheezes rales or rhonchi. HEART: Regular rate and rhythm without murmurs ABDOMEN: Soft, nontender, normal bowel sounds, no guarding. EXTREMITIES: Normal range of motion, no pitting edema. BACK: No midline tenderness, no step-off or deformity. Left CVA tenderness NEUROLOGICAL: Cranial nerves grossly intact. Normal speech. Normal gait. PSYCH: Normal mood, normal affect. SKIN: Warm, Dry, normal turgor, no rashes or lesions noted Course - Re-evaluation Re-evalutation: 12/04/19 18:51 Patient with a left ureteral stone. Patient with mild leukocytosis of 11.7 and trace leukocyte esterase noted on urinalysis. Urine will be cultured and patient started on antibiotic at this time although UTI is thought to be less likely at this time. Patient without any fever at this time. Patient's pain is able to be controlled. Patient without any nausea or vomiting. Patient presents with nonobstructing kidney stone. Patient improved in the emergency department with IV morphine. Patient stable for outpatient management and followup with urology. Will discharge with oral pain medications and Flomax. Patient instructed to return if symptoms do not improve. - Vital Signs Vital signs: Temp Pulse Resp BP Pulse Ox 98.1 F 91 16 129/73 H 100 12/04/19 15:59 12/04/19 15:50 12/04/19 15:50 12/04/19 15:50 12/04/19 15:50 - Laboratory Result Diagrams: 12/04/19 16:30 12/04/19 16:30 Laboratory results interpreted by me: 12/04/19 12/04/19 16:30 16:36 WBC 11.7 H Urine Blood LARGE H Ur Leukocyte Esterase TRACE H 12/04/19 18:51 Labs- All tests 24 hr 12/04/19 12/04/19 12/04/19 16:30 16:30 16:36 WBC 11.7 H RBC 4.29 Hgb 13.0 Hct 37.8 MCV 88 MCH 30.2 MCHC 34.3 RDW 13.4 Plt Count 302 Lymph % (Auto) 25.8 [place] % (Auto) 6.0 Eos % (Auto) 2.3 Baso % (Auto) 0.2 Absolute Neuts (auto) 7.7 Absolute Lymphs (auto) 3.0 Absolute Monos (auto) 0.7 Absolute Eos (auto) 0.3 Absolute Basos (auto) 0.0 Seg Neutrophils % 65.7 Sodium 139.1 Potassium 4.4 Chloride 104 Carbon Dioxide 26 Anion Gap 9 BUN 11 Creatinine 0.54 Est GFR ( Amer) > 60 Est GFR (MDRD) Non-Af > 60 Glucose 86 Calcium 9.3 Total Bilirubin 0.4 Direct Bilirubin 0.3 Neonat Total Bilirubin Not Reportable Neonat Direct Bilirubin Not Reportable Neonat Indirect Bili Not Reportable AST 20 ALT 13 Alkaline Phosphatase 114 Total Protein 7.0 Albumin 4.5 Lipase 97.0 Urine Color YELLOW Urine Appearance CLEAR Urine pH 6.0 Ur Specific [place] 1.011 Urine Protein NEGATIVE Urine Glucose (UA) NEGATIVE Urine Ketones NEGATIVE Urine Blood LARGE H Urine Nitrite NEGATIVE Urine Bilirubin NEGATIVE Urine Urobilinogen NEGATIVE Ur Leukocyte Esterase TRACE H Urine WBC (Auto) 2 Urine RBC (Auto) 51 Squamous Epi Cells Auto 16 Urine Mucus (Auto) FEW Urine Ascorbic Acid NEGATIVE Urine HCG, Qual NEGATIVE - Diagnostic Test Radiology reviewed: Reports reviewed Discharge - Discharge Clinical Impression: Ureteral stone, Left flank pain Condition: Stable Disposition: HOME, SELF-CARE Additional Instructions: Return immediately for any new or worsening symptoms: Fever, vomiting, worsening pain or any concerning new symptoms Followup with your primary care provider, call tomorrow to make a followup appointment Follow-up with urology, call tomorrow to make a follow-up appointment KIDNEY STONE: You are passing or have passed a kidney stone. These stones are usually due to increased calcium or uric acid concentrations in your urine. Stones within the kidney itself are not painful. The pain occurs as the stone leaves the kidney to pass down the long tube, called the ureter, leading to the bladder. If the stone is small, it will usually pass by itself. Most patients can pass the stone at home. You will usually receive medications for pain, nausea or vomiting, and sometimes a medication to assist in passing the kidney stone. However, if the pain is very severe or if vomiting prevents you from taking oral pain medications, you may need to return for further treatment. Drink three or four quarts of fluids per day. You will be given pain medication (if needed) and urine strainers. Strain all your urine to see if the stone passes. If your doctor has asked you to bring the stone in for analysis, return with the stone once it has passed. Return if pain or vomiting become severe, if you develop a high fever, if you are unable to pass your urine, or if other unusual symptoms occur. PAIN MEDICATION INJECTION: You have received an injection of a pain medication. You should experience significant pain relief within 45 minutes. This drug is a narcotic -- it will impair your judgement, slow your reaction time and make you sleepy (as well as relieve your pain). Narcotics also can cause nausea. You should not drive, work with machinery, or perform any task requiring mental alertness until all effects of the medication are gone -- six to eight hours. Do not take any alcohol, or sedatives, and do not take any other medication without checking with your physician. ORAL NARCOTIC MEDICATION: You have been given a prescription for pain control. This medication is a narcotic. It's best taken with food, as nausea can result if taken on an empty stomach. Don't operate machinery or drive within six hours of taking this medication. Do not combine this medicine with alcohol, or with any medication which can cause sedation (such as cold tablets or sleeping pills) unless you get permission from the physician. Narcotics tend to cause constipation. If possible, drink plenty of fluids and eat a diet high in fiber and fruits. Please be aware that prescription narcotics also have the potential for abuse. People become addicted to these medications because of the general sense of wellbeing that they induce. This feeling along with a significant reduction in tension, anxiety, and aggression provides a stimulating seductive quality to these drugs. Once your pain is under control, we encourage you to discard your unused narcotics. FLOMAX (tamsulosin): Flomax is a medicine that shrinks the prostate gland. It helps relieve symptoms of benign prostatic hypertrophy, such as frequent urination, weak stream, and inadequate emptying. It has been shown to dilate the ureter (tube leading from the kidney to the bladder) and help in passing kidney stones Flomax usually causes no side effects. You may notice slight tiredness and dizziness for a few days. Some patients develop nasal congestion. Rarely, impotence can occur. If the symptoms are bothersome and don't improve with continued use, call your doctor. Contact your doctor or return if you have fainting spells, severe weakness or dizziness, shortness of breath, or rash. FOLLOW-UP CARE: If you have been referred to a physician for follow-up care, call the physicians office for an appointment as you were instructed or within the next two days. If you experience worsening or a significant change in your symptoms, notify the physician immediately or return to the Emergency Department at any time for re-evaluation. Prescriptions: Cefdinir 300 mg PO BID #20 capsule Tamsulosin HCl [Flomax 0.4 mg Cap.sr] 0.4 mg PO DAILY #7 cap.sr.24h Hydrocodone/Acetaminophen [[place] 5-325 mg Tablet] 1 tab PO Q6 PRN #15 tablet PRN Reason: Referrals: JASS SHEPARD PA [Primary Care Provider] - Follow up tomorrow [facility] [Provider Group] - Follow up tomorrow
--- NOTE | 2019-12-04 17:50 | RADIOLOGY REPORT (SQ) ---
EXAM DESCRIPTION: CT ABD/PELVIS NO ORAL OR IV IMAGES COMPLETED DATE/TIME: 12/04/2019 5:27 pm REASON FOR STUDY: RLQ, suprpubic tenderness, LLQ, L flank pain COMPARISON: 03/15/2012 TECHNIQUE: CT scan of the abdomen and pelvis performed without intravenous or oral contrast. Images reviewed with lung, soft tissue, and bone windows. Reconstructed coronal and sagittal MPR images revi ewed. All images stored on PACS. All CT scanners at this facility use dose modulation, iterative reconstruction, and/or weight based d osing when appropriate to reduce radiation dose to as low as reasonably achievable (ALARA). [facility]: Dose Right [facility]: CareDose [facility]: Dose Right [facility]: Teradose 4D [facility]: [employer] RADIATION DOSE: CT Rad equipment meets quality standard of care and radiation dose reduction techniq ues were employed. CTDIvol: 13.5 mGy. DLP: 762 mGy-cm. LIMITATIONS: None. FINDINGS: LOWER CHEST: Very small left perifissural nodule, axial image 1, series 4. NON-CONTRASTED LIVER, SPLEEN, ADRENALS: Evaluation limited by lack of IV contrast. No identified sign ificant masses. PANCREAS: No masses. No peripancreatic inflammatory changes. GALLBLADDER: Prior cholecystectomy. RIGHT KIDNEY AND URETER: No suspicious masses. Assessment limited by lack of IV contrast. No signif icant calcifications. No hydronephrosis or hydroureter. LEFT KIDNEY AND URETER: A 2-3 mm calculus at the left ureterovesical junction, axial image 81, serie s 3. No evidence of hydronephrosis or hydroureter. Assessment limited by lack of IV contrast AORTA AND RETROPERITONEUM: No aneurysm. No retroperitoneal masses or adenopathy. BOWEL AND PERITONEAL CAVITY: No obvious masses or inflammatory changes. No free fluid. APPENDIX: Normal. PELVIS, BLADDER, AND ABDOMINAL WALL: The uterus is not identified. Stable small fat containing vent ral abdominal wall hernia. BONES: No significant findings. OTHER: A ring in the vagina. IMPRESSION: 1. A small 2-3 mm calculus at the left ureterovesical junction. No evidence of hydrone phrosis or hydroureter. 2. Prior cholecystectomy. 3. Additional findings as above. COMMENT: Quality ID # [id number]: Final reports with documentation of one or more dose reduction techniques (e.g., Automated exposure control, adjustment of the mA and/or kV according to patient size, use of iterative reconstruction technique) TECHNICAL DOCUMENTATION: JOB ID: [id number] 2010 [employer]- All Rights Reserved Reading location - IP/workstation name: [email or web address]
[2019-12-04] MEDS ORDERED: MORPHINE SULFATE 10 MG/ML INJ IV ONE (18:26)
[2019-12-04] MEDS ORDERED: TAMSULOSIN HCL 0.4 MG CAP.SR.24H PO ONE (18:27)
[2019-12-04] MEDS ORDERED: CEPHALEXIN 500 MG CAPSULE PO ONE (18:50)
[2019-12-04 19:11] VITALS: BP 130/72
== END 2019-12-04 19:13 | disposition home or self-care (01) ==
LOC: ER 15:43
DX: N20.1 Calculus of ureter (principal); R10.9 Unspecified abdominal pain; M54.9 Dorsalgia, unspecified; R35.0 Frequency of micturition; F17.200 Nicotine dependence, unspecified, uncomplicated; K21.9 Gastro-esophageal reflux disease without esophagitis; J45.909 Unspecified asthma, uncomplicated; F41.9 Anxiety disorder, unspecified; F31.9 Bipolar disorder, unspecified; F20.9 Schizophrenia, unspecified; F90.9 Attention-deficit hyperactivity disorder, unspecified type; Z79.84 Long term (current) use of oral hypoglycemic drugs; Z79.899 Other long term (current) drug therapy; Z88.8 Allergy status to other drugs, medicaments and biological substances
CPT/HCPCS: 99283; 36415; 87086; 83690; 85025; 81025; 80053; 81001; 74176; A9270 ×2; J2270

== ENCOUNTER → 2019-12-20 | Outpatient (CLI) | payer MEDICARE, MEDICAID ==
[2019-12-20 09:33] LABS: ABSOLUTE EOSINOPHILS # (AUTO) 0.2 10^3/uL (0.0-0.6); ABSOLUTE LYMPHOCYTES (AUTO) 2.6 10^3/uL (0.5-4.7); ABSOLUTE MONOCYTES (AUTO) 0.9 10^3/uL (0.1-1.4); ABSOLUTE NEUT (AUTO) 4.9 10^3/uL (1.7-8.2); BASOPHILS % (AUTO) 0.3 % (0-2); EOSINOPHILS % (AUTO) 2.8 % (0-6); HEMATOCRIT 39.8 % (36.0-47.0); HEMOGLOBIN 13.8 g/dL (12.0-15.5); MEAN CORPUSCULAR HEMOGLOBIN 30.9 pg (27.0-33.4); MEAN CORPUSCULAR HGB CONC 34.7 g/dL (32.0-36.0); MEAN CORPUSCULAR VOLUME 89 fl (80-97); MONOCYTES % (AUTO) 9.9 % (3-13); PLATELET COUNT 272 10^3/uL (150-450); RED BLOOD COUNT 4.47 10^6/uL (3.72-5.28); RED CELL DISTRIBUTION WIDTH 13.8 % (11.5-14.0); TOTAL CELLS COUNTED % (AUTO) 100 %; WHITE BLOOD COUNT 8.6 10^3/uL (4.0-10.5)
[2019-12-20 09:52] LABS: ALBUMIN 4.2 g/dL (3.5-5.0); ALKALINE PHOSPHATASE 101 U/L (38-126); ANION GAP 10 (5-19); ASPARTATE AMINO TRANSFERASE 16 U/L (14-36); BILIRUBIN,DIRECT 0.3 mg/dL (0.0-0.4); BILIRUBIN,TOTAL 0.4 mg/dL (0.2-1.3); BLOOD UREA NITROGEN 11 mg/dL (7-20); CALCIUM 9.2 mg/dL (8.4-10.2); CARBON DIOXIDE 26 mmol/L (22-30); CHLORIDE 106 mmol/L (98-107); CHOLESTEROL 191.72 mg/dL (0-200); GLUCOSE 101 mg/dL (75-110); POTASSIUM 4.6 mmol/L (3.6-5.0); TOTAL PROTEIN 6.7 g/dL (6.3-8.2); TRIGLYCERIDES 377 mg/dL (<150)
[2019-12-20 10:03] LABS: DIRECT LDL 86 mg/dL (<100)
[2019-12-20 10:04] LABS: FREE T4 (FREE THYROXINE) 0.83 ng/dL (0.78-2.19)
[2019-12-20 10:06] LABS: VLDL CHOLESTEROL 75.4 mg/dL (10-31)
[2019-12-20 10:18] LABS: THYROID STIMULATING HORMONE 2.06 uIU/mL (0.47-4.68)
== END ==
LOC: OD 08:38
PROVIDERS: ATTEND Physician Assistant
DX: F31.31 Bipolar disorder, current episode depressed, mild (principal); Z79.899 Other long term (current) drug therapy
CPT/HCPCS: 36415; 80053; 80061; 80156; 83036; 84439; 84443; 85025

== ENCOUNTER 2019-12-27 14:56 | Emergency (ER) | payer MEDICARE, MEDICAID ==
--- NOTE | 2019-12-27 15:06 | ER Document Report ---
ED Medical Screen (RME) - General Chief Complaint: Urinary Problem Stated Complaint: URINARY ISSUE Time Seen by Provider: 12/27/19 15:01 Primary Care Provider: INDIGO SHAW PA-C [Primary Care Provider] - Follow up as needed Information source: Patient Notes: Patient presents complaining of difficulty voiding for the past week. Patient complains of pain to perineum and right flank area. Patient states that she recently passed a kidney stone. Patient denies any nausea or vomiting. Patient denies any vaginal bleeding or discharge. hx: Kidney stones, anxiety, PTSD, bipolar, schizophrenia, hysterectomy, cholecystectomy, hernia, orthopedic surgery I have greeted and performed a rapid initial assessment of this patient. A comprehensive ED assessment and evaluation of the patient, analysis of test results and completion of the medical decision making process will be conducted by additional ED providers. TRAVEL OUTSIDE OF THE [place] IN LAST 30 DAYS: No - Related Data Allergies/Adverse Reactions: aspirin [Aspirin] Allergy (Severe, Verified 06/13/18 08:27) THROAT SWELLS, HIVES iodine [Iodine] Allergy (Severe, Verified 06/13/18 08:27) Generalized Itching Past Medical History - Social History Family history: None - Past Medical History Cardiac Medical History: Reports: Hx Hypercholesterolemia Pulmonary Medical History: Reports: Hx Asthma - MILD, Hx Bronchitis Denies: Hx COPD, Hx Pneumonia Neurological Medical History: Reports: Hx Migraine. Denies: Hx Cerebrovascular Accident, Hx Seizures Renal/ Medical History: Reports: Hx Kidney Stones. Denies: Hx Peritoneal Dialysis GI Medical History: Reports: Hx Gastroesophageal Reflux Disease, Hx Irritable Bowel Musculoskeltal Medical History: Denies Hx Arthritis, Reports Hx Musculoskeletal Deformity, Reports Hx Musculoskeletal Trauma Psychiatric Medical History: Reports: Hx Anxiety, Hx Attention Deficit Hyperactivity Disorder, Hx Bipolar Disorder, Hx Depression, Hx Post Traumatic Stress Disorder, Hx Schizophrenia Past Surgical History: Reports: Hx Abdominal Surgery - UMBILICAL HERNIA, Hx Section, Hx Cholecystectomy, Hx Herniorrhaphy - Umbilical hernia repair, Hx Hysterectomy, Hx Orthopedic Surgery - left shoulder(slap shoulder), Hx Tonsillectomy, Hx Umbilical Hernia, Hx Urinary Tract Surgery - kidney stent 11/22/16 x4 - Immunizations Immunizations up to date: Yes Hx Diphtheria, Pertussis, Tetanus Vaccination: Yes Physical Exam - Vital signs Vitals: Temp Pulse Resp BP Pulse Ox 98.1 F 89 18 120/68 97 12/27/19 14:59 12/27/19 14:59 12/27/19 14:59 12/27/19 14:59 12/27/19 14:59 - Back Back: CVA tenderness - Right CVA tenderness Course - Vital Signs Vital signs: Temp Pulse Resp BP Pulse Ox 98.1 F 89 18 120/68 97 12/27/19 14:59 12/27/19 14:59 12/27/19 14:59 12/27/19 14:59 12/27/19 14:59 Doctor's Discharge - Discharge Referrals: INDIGO SHAW PA-C [Primary Care Provider] - Follow up as needed
[2019-12-27 15:32] LABS: ABSOLUTE EOSINOPHILS # (AUTO) 0.2 10^3/uL (0.0-0.6); ABSOLUTE LYMPHOCYTES (AUTO) 3.3 10^3/uL (0.5-4.7); ABSOLUTE MONOCYTES (AUTO) 0.6 10^3/uL (0.1-1.4); ABSOLUTE NEUT (AUTO) 6.6 10^3/uL (1.7-8.2); BASOPHILS % (AUTO) 0.2 % (0-2); EOSINOPHILS % (AUTO) 2.1 % (0-6); HEMATOCRIT 39.2 % (36.0-47.0); HEMOGLOBIN 13.7 g/dL (12.0-15.5); LYMPHOCYTES % (AUTO) 30.3 % (13-45); MEAN CORPUSCULAR HEMOGLOBIN 31.2 pg (27.0-33.4); MEAN CORPUSCULAR VOLUME 89 fl (80-97); MONOCYTES % (AUTO) 5.9 % (3-13); PLATELET COUNT 312 10^3/uL (150-450); RED CELL DISTRIBUTION WIDTH 14.1 % (11.5-14.0); SEGMENTED NEUTROPHILS % (AUTO) 61.5 % (42-78); TOTAL CELLS COUNTED % (AUTO) 100 %; WHITE BLOOD COUNT 10.8 10^3/uL (4.0-10.5)
[2019-12-27 15:54] LABS: ALBUMIN 4.6 g/dL (3.5-5.0); ALKALINE PHOSPHATASE 112 U/L (38-126); ANION GAP 11 (5-19); ASPARTATE AMINO TRANSFERASE 17 U/L (14-36); BILIRUBIN,DIRECT 0.2 mg/dL (0.0-0.4); BILIRUBIN,TOTAL 0.2 mg/dL (0.2-1.3); BLOOD UREA NITROGEN 11 mg/dL (7-20); CALCIUM 9.7 mg/dL (8.4-10.2); CARBON DIOXIDE 26 mmol/L (22-30); CHLORIDE 104 mmol/L (98-107); GLUCOSE 130 mg/dL (75-110); POTASSIUM 4.2 mmol/L (3.6-5.0); TOTAL PROTEIN 7.2 g/dL (6.3-8.2)
[2019-12-27 16:30] LABS: APPEARANCE,URINE CLOUDY; BILIRUBIN,URINE NEGATIVE (NEGATIVE); CALCIUM OXALATE CRYSTALS,URINE RARE /HPF; COLOR,URINE YELLOW; GLUCOSE, URINE NEGATIVE (NEGATIVE); KETONES,URINE NEGATIVE (NEGATIVE); LEUKOCYTE ESTERASE,URINE NEGATIVE (NEGATIVE); NITRITE,URINE NEGATIVE (NEGATIVE); PROTEIN,URINE NEGATIVE (NEGATIVE); URINE SPECIFIC GRAVITY 1.025; UROBILINOGEN,URINE NEGATIVE mg/dL (<2.0)
--- NOTE | 2019-12-27 17:31 | ER Document Report ---
Entered by VIKAS COONEY SCRIBE 12/27/19 1628 Acting as scribe for:SHYANNE LAM MD ED GI/ - General Chief Complaint: Urinary Problem Stated Complaint: URINARY ISSUE Time Seen by Provider: 12/27/19 15:01 Primary Care Provider: INDIGO SHAW PA-C [NO LOCAL MD] - Follow up as needed Mode of Arrival: Ambulatory Information source: Patient Notes: This 34 year old female patient presents to the emergency department today with complaints of urinary pressure. She reports that she has a lot of pressure over her bladder and she frequently feels likes she has to urinate frequently but she is not emptying all the way. Patient states she has not had any pain, just the pressure. Patient denies vaginal bleeding, hematuria, fevers, nausea, or vomiting. TRAVEL OUTSIDE OF THE [place] IN LAST 30 DAYS: No - Related Data Allergies/Adverse Reactions: aspirin [Aspirin] Allergy (Severe, Verified 12/27/19 15:08) THROAT SWELLS, HIVES iodine [Iodine] Allergy (Severe, Verified 12/27/19 15:08) Generalized Itching Home Medications: equetro, fenap,clonazepam, buspar, metformin, trazodone, seroquel,presosin Past Medical History - General Information source: Patient Last Menstrual Period: hysterectomy - Social History Smoking Status: Current Every Day Smoker Cigarette use (# per day): Yes Chew tobacco use (# tins/day): No Frequency of alcohol use: Rare Drug Abuse: Marijuana Lives with: Family Family History: Reviewed & Not Pertinent Patient has homicidal ideation: No - Past Medical History Cardiac Medical History: Reports: Hx Hypercholesterolemia Pulmonary Medical History: Reports: Hx Asthma - MILD, Hx Bronchitis Neurological Medical History: Reports: Hx Migraine Renal/ Medical History: Reports: Hx Kidney Stones GI Medical History: Reports: Hx Gastroesophageal Reflux Disease, Hx Irritable Bowel Musculoskeletal Medical History: Reports Hx Musculoskeletal Deformity, Reports Hx Musculoskeletal Trauma Psychiatric Medical History: Reports: Hx Anxiety, Hx Attention Deficit Hyperactivity Disorder, Hx Bipolar Disorder, Hx Depression, Hx Post Traumatic Stress Disorder, Hx Schizophrenia Past Surgical History: Reports: Hx Abdominal Surgery - UMBILICAL HERNIA, Hx Section, Hx Cholecystectomy, Hx Herniorrhaphy - Umbilical hernia repair, Hx Hysterectomy, Hx Orthopedic Surgery - left shoulder(slap shoulder), Hx Tonsillectomy, Hx Umbilical Hernia, Hx Urinary Tract Surgery - kidney stent 11/22/16 x4 - Immunizations Immunizations up to date: Yes Hx Diphtheria, Pertussis, Tetanus Vaccination: Yes Review of Systems - Review of Systems Constitutional: denies: Fever EENT: No symptoms reported Cardiovascular: No symptoms reported Respiratory: No symptoms reported Gastrointestinal: denies: Nausea, Vomiting Genitourinary: denies: Hematuria Female Genitourinary: denies: Vaginal bleeding Musculoskeletal: No symptoms reported Skin: No symptoms reported Hematologic/Lymphatic: No symptoms reported Neurological/Psychological: No symptoms reported -: Yes All other systems reviewed and negative Physical Exam - Vital signs Vitals: Temp Pulse Resp BP Pulse Ox 98.1 F 89 18 120/68 97 12/27/19 14:59 12/27/19 14:59 12/27/19 14:59 12/27/19 14:59 12/27/19 14:59 - Notes Notes: Physical Exam: General: Alert, appears well. HEENT: Normocephalic. Atraumatic. PERRL. Extraocular movements intact. Oropharynx clear. Neck: Supple. Non-tender. Respiratory: No respiratory distress. Clear and equal breath sounds bilaterally. Cardiovascular: Regular rate and rhythm. Abdominal: Obese. Soft. Normal bowel sounds. No distention. Non-tender to deep palpation in the upper mid abdomen and the lower abdomen and pelvis. There was only a slight pressure sensation to palpating in the suprapubic region over the bladder. Back: No gross abnormalities. Extremities: Moves all four extremities. Upper extremities: Normal inspection. Normal ROM. Lower extremities: Normal inspection. No edema. Normal ROM. Neurological: Normal cognition. AAOx4. Normal speech. Psychological: Normal affect. Normal Mood. Skin: Warm. Dry. Normal color. Course - Vital Signs Vital signs: Temp Pulse Resp BP Pulse Ox 97.9 F 75 16 103/66 100 12/27/19 18:40 12/27/19 18:40 12/27/19 18:40 12/27/19 18:40 12/27/19 18:40 - Laboratory Result Diagrams: 12/27/19 15:11 12/27/19 15:11 Laboratory results interpreted by me: 12/27/19 12/27/19 15:11 15:11 WBC 10.8 H RDW 14.1 H Glucose 130 H Discharge - Discharge Clinical Impression: Urinary frequency Condition: Stable Disposition: HOME, SELF-CARE Additional Instructions: The symptoms you are having of a full bladder were not due to urine retention. The analysis of the urine and blood did not show signs of infection. The urine will be cultured just in case there is an infection that does not show up in the initial microscopic exam. You should drink plenty of fluids throughout the day and evening. Try taking Azo-Standard to see if it relieves your symptoms. Follow-up with your primary care provider if not improving. RETURN TO THE EMERGENCY ROOM IF ANY NEW OR WORSENING SYMPTOMS. Referrals: INDIGO SHAW PA-C [NO LOCAL MD] - Follow up as needed I personally performed the services described in the documentation, reviewed and edited the documentation which was dictated to the scribe in my presence, and it accurately records my words and actions.
[2019-12-27 18:36] LABS: CHLAM PCR NOT DETECTED (NOT DETECT)
[2019-12-27 18:42] VITALS: BP 103/66
== END 2019-12-27 19:10 | disposition home or self-care (01) ==
LOC: ER 14:56
DX: R35.0 Frequency of micturition (principal); R39.89 Other symptoms and signs involving the genitourinary system; J45.909 Unspecified asthma, uncomplicated; F17.210 Nicotine dependence, cigarettes, uncomplicated; F31.9 Bipolar disorder, unspecified; F41.9 Anxiety disorder, unspecified; F20.9 Schizophrenia, unspecified; Z79.899 Other long term (current) drug therapy; Z79.84 Long term (current) use of oral hypoglycemic drugs; Z88.8 Allergy status to other drugs, medicaments and biological substances
CPT/HCPCS: 36415; 80053; 81001; 85025; 87086; 87491; 87591; 99283